=== PATIENT | female | born 1965 | race Caucasian/White ===

== ENCOUNTER 2018-01-07 14:42 | Emergency (ER) | payer OTHER ==
[~2018-01-07] VITALS: Ht 170.2 cm; Wt 73.2 kg
[~2018-01-07 14:42] MED LIST: ALBUAER2 INH; BECL0.3A INH; DOUNEB INH; IPRA1AER2 INH
[2018-01-07 14:43] VITALS: Ht 170.2 cm; Wt 73.2 kg
[2018-01-07 15:35] LABS: BASO % 0.1 %; BASO ABS # 0.01 K/uL (0-0.2); EOS % 0.6 %; EOS ABS # 0.08 K/uL (0-0.5); HEMOGLOBIN 12.7 g/dL (12.0-16.0); IG# 0.04 K/uL (0.00-0.02); LYMPH % 17.4 %; LYMPH ABS # 2.23 K/uL (1.2-3.4); MEAN CELL VOLUME 93.9 fL (80-100); MEAN CORPUSCULAR HEMOGLOBIN 32.2 pg (25-34); MEAN CORPUSCULAR HGB CONC 34.3 g/dl (32-36); MEAN PLATELET VOLUME 9.5 fL (7.4-10.4); MONO % 9.2 %; MONO ABS # 1.18 K/uL (0.11-0.59); NEUT % 72.4 %; NEUT ABS # 9.31 K/uL (1.4-6.5); PLATELET COUNT 238 K/uL (130-400); RED CELL DISTRIBUTION WIDTH CV 13.4 % (11.5-14.5); RED CELL DISTRIBUTION WIDTH SD 46.5 fL (36.4-46.3); WHITE BLOOD COUNT 12.85 K/uL (4.8-10.8)
[2018-01-07 15:58] LABS: ALBUMIN 3.1 gm/dl (3.4-5.0); CALCIUM 8.9 mg/dl (8.5-10.1); CREATININE 0.76 mg/dl (0.60-1.20); POTASSIUM 3.3 mmol/L (3.5-5.1)
[2018-01-07 16:00] LABS: TOTAL PROTEIN 7.6 gm/dl (6.4-8.2)
[2018-01-07 16:21] LABS: INFLUENZA B ANTIGEN Neg for Influ B (NEG)
[2018-01-07 16:56] VITALS: TEMP 38.2
--- NOTE | 2018-01-07 18:20 | DIAGNOSTIC IMAGING REPORT ---
CHEST 2 VIEWS ROUTINE HISTORY: 52 years-old Female cough, fever acute cough and fever COMPARISON: Chest radiograph 04/13/2014 and CTA chest 04/13/2014 TECHNIQUE: PA and lateral views of the chest FINDINGS: Cardiomediastinal and hilar silhouettes are within normal limits. Lungs are mildly hyperinflated. No pneumothorax, pleural effusion, lobar airspace consolidation or overt pulmonary edema. Calcified granulomas of the right upper lobe redemonstrated. Hazy opacity of the lateral right lung base on the frontal view is not appreciated on the lateral projection. Bones of the chest appear grossly intact. IMPRESSION: 1. Ill-defined opacity of the lateral right lung base on the frontal view without a correlate on the lateral projection likely reflects atelectasis or composite pulmonary vasculature with a mild pneumonitis thought to be less likely. 2. Prior granulomatous disease. The above report was generated using voice recognition software. It may contain grammatical, syntax or spelling errors. Electronically signed by: Gonzales Ireland M.D. 01/07/2018 6:19 PM Dictated Date/Time: 01/07/2018 6:16 PM
[2018-01-07] MEDS ORDERED: AZITHROMYCIN 250 MG TAB PO STA (18:36)
[2018-01-07] MEDS ORDERED: CEFD300C2 PO (18:45)
[2018-01-07] MEDS ORDERED: AZIT250T PO (18:45)
[2018-01-07 19:05] VITALS: BP 132/76; PULSE 74; O2SAT 98
--- NOTE | 2018-01-08 14:00 | EMERGENCY ROOM VISIT NOTE ---
ED Visit Note First contact with patient: 14:48 Chief Complaint: I think I have catch scratch disease. History of Present Illness: Ms. Proctor is a 52-year-old white female who ambulates into the ED accompanied by her . Patient reports approximately 3 weeks ago she self diagnosed herself with influenza with symptoms of fevers, body aches, fatigue, cough and congestion. She reported she had resolution of all her symptoms except for cough 8 days ago. She reports 2 days after her resolution of those symptoms she was scratched in the face and lower lip by her family cat. The day after she was scratched she reports she had fevers, body aches, uncontrollable shakes, body aches and fatigue. He also reports a day after the scratch she developed an ulceration lesion on the lower lip which is subsequently resolved. Currently she reports she is still having body aches. She rates this discomfort 2/10. The pain is nonradiating. She has not identified any aggravating or alleviating factors related to this pain. She does report when she woke up this morning she was afebrile but a few hours after being awake she had a temperature of 101F orally and she took Tylenol for her fever but not really for her body aches. Additionally she also reports she continues to have a mildly productive cough of clear sputum. She denies sweats, other skin eruptions, other skin color changes, headache, dizziness, lightheadedness, any abnormal neurological symptoms, neck pain/ stiffness, hemoptysis; she has a history of COPD and she does report that she has mild wheezing every day, difficulty breathing, sensations of shortness of breath, chest pain, palpitations, orthopnea, dependent edema, previous clots, claudication, cramping, decreased appetite, abdominal pain, nausea, vomiting, diarrhea, back/flank pain, joint pains. Review of Systems: As noted above in history of present illness. All body systems were reviewed and found to be negative as noted above. Past Medical History: COPD, bronchitis, asthma, pneumonia, status post tubal ligation. Current Medications: Combivent. Allergies to Medications: Love, Prozac; I did note that the patient had a history of penicillin allergies and when questioned during discharge patient reports she really did not have an allergic reaction to penicillin in the past she only had body aches and pain. Social History: Patient is currently employed; she feels safe in her home environment; she admits to tobacco and alcohol use. Physical Examination: Vital Signs: Date Time Temp Pulse Resp B/P (MAP) Pulse Ox O2 Delivery O2 Flow Rate FiO2 01/07/18 19:05 74 20 132/76 98 01/07/18 16:56 38.2 16 158/91 96 Room Air 01/07/18 14:43 37.0 107 18 175/94 98 Room Air GENERAL: 52-year-old female in mild distress due to pain, nontoxic-appearing, afebrile and hemodynamically stable. NEUROLOGICAL: Awake, alert and oriented to person, place and time. Answering questions appropriately and following commands. Normal gait. Good hand eye coordination. No focal motor sensory deficits. SKIN: Warm, dry and pink. Face: Shows a superficial laceration starting just inferior to the zygomatic arch and extending down to the lip. There is no local erythema or edema. There is no warmth to this area. The skin or surrounding area does not appear cellulitic. Mouth: I did look in the mouth on the lower lip where the patient received an injury and there is no local erythema, edema or lesions. HEENT: Atraumatic and normocephalic. PERRLA. Sclera white and conjunctiva pink. Speech normal. No local lymphadenopathy. Trachea midline. No jugular venous distention. THORAX: Lungs sounds are clear to auscultation with scattered rhonchi in the bases that clear with cough. Symmetrical chest wall. No wheezing, rales. No crepitus, tenderness, subcutaneous air or deformities noted. ABDOMEN: Flat, soft and nontender. Positive bowel sounds in all quadrants. No guarding, rigidity or organomegaly. EXTREMITIES: Moves all extremities well on command and with purpose. All distal neurovascular statuses are intact and equal bilaterally. No calf tenderness or cords. ED Course: Patient is assessed as noted above. Patient's medication list was reviewed. Should be noted patient was extremely concerned about laboratory testing and other testing due to poor insurance and her possible inability to pay. Initially she refused chest x-ray and urinalysis. I did approach the patient and counseled her on additional testing due to her white blood cell count elevation and her development of a fever while in the ED and then she did she allow these testing. Laboratory Testing: Test 01/07/18 15:24 01/07/18 15:26 01/07/18 17:37 Range/Units Influenza Type A Antigen Neg for Influ A NEG Influenza Type B Antigen Neg for Influ B NEG White Blood Count 12.85 4.8-10.8 K/uL Red Blood Count 3.94 4.2-5.4 M/uL Hemoglobin 12.7 12.0-16.0 g/dL Hematocrit 37.0 37-47 % Mean Corpuscular Volume 93.9 80-100 fL Mean Corpuscular Hemoglobin 32.2 25-34 pg Mean Corpuscular Hemoglobin Concent 34.3 32-36 g/dl Platelet Count 238 130-400 K/uL Mean Platelet Volume 9.5 7.4-10.4 fL Neutrophils (%) (Auto) 72.4 % Lymphocytes (%) (Auto) 17.4 % Monocytes (%) (Auto) 9.2 % Eosinophils (%) (Auto) 0.6 % Basophils (%) (Auto) 0.1 % Neutrophils # (Auto) 9.31 1.4-6.5 K/uL Lymphocytes # (Auto) 2.23 1.2-3.4 K/uL Monocytes # (Auto) 1.18 0.11-0.59 K/uL Eosinophils # (Auto) 0.08 0-0.5 K/uL Basophils # (Auto) 0.01 0-0.2 K/uL RDW Standard Deviation 46.5 36.4-46.3 fL RDW Coefficient of Variation 13.4 11.5-14.5 % Immature Granulocyte % (Auto) 0.3 % Immature Granulocyte # (Auto) 0.04 0.00-0.02 K/uL Sodium Level 131 136-145 mmol/L Potassium Level 3.3 3.5-5.1 mmol/L Chloride Level 96 98-107 mmol/L Carbon Dioxide Level 27 21-32 mmol/L Anion Gap 8.0 3-11 mmol/L Blood Urea Nitrogen 10 7-18 mg/dl Creatinine 0.76 0.60-1.20 mg/dl Est Creatinine Clear Calc Drug Dose 84.2 ml/min Estimated GFR () 104.5 Estimated GFR (Non- 90.2 BUN/Creatinine Ratio 12.5 10-20 Random Glucose 122 70-99 mg/dl Calcium Level 8.9 8.5-10.1 mg/dl Total Bilirubin 1.1 0.2-1 mg/dl Direct Bilirubin 0.6 0-0.2 mg/dl Aspartate Amino Transf (AST/SGOT) 62 15-37 U/L Alanine Aminotransferase (ALT/SGPT) 50 12-78 U/L Alkaline Phosphatase 132 45-117 U/L Total Protein 7.6 6.4-8.2 gm/dl Albumin 3.1 3.4-5.0 gm/dl Urine Color YELLOW Urine Appearance CLEAR CLEAR Urine pH 5.5 4.5-7.5 Urine Specific [place] 1.006 1.000-1.030 Urine Protein NEG NEG Urine Glucose (UA) NEG NEG Urine Ketones NEG NEG Urine Occult Blood TRACE NEG Urine Nitrite NEG NEG Urine Bilirubin NEG NEG Urine Urobilinogen NEG NEG Urine Leukocyte Esterase LARGE NEG Urine WBC (Auto) >30 0-5 /hpf Urine RBC (Auto) 0-4 0-4 /hpf Urine Hyaline Casts (Auto) 0 0-5 /lpf Urine Epithelial Cells (Auto) 10-20 0-5 /lpf Urine Bacteria (Auto) NEG NEG Chest X-Ray: Was reviewed by myself and radiologist and my attending Dr. Coello; shows ill-defined opacity in the left lung base of questionable etiology but could possibly include atelectasis, pulmonary vasculature with pneumonitis. Patient was reassessed multiple times during her stay in the emergency department. Patient's case was reviewed with Dr. Coello; he independently assessed the patient we agreed on diagnostic approach, treatment, disposition and plan. Patient was given 500 mg of Zithromax by mouth for antibiotic coverage. Patient was educated about today's findings and instructed on her treatment plan ; she verbalized understanding and agreement with this plan. Clinical Impression: Fevers. Possible pneumonitis. Possible cat scratch fever. Decision-Making: Initially my differential diagnosis I considered pneumonia, bronchitis, cat scratch fever, influenza and other causes. Disposition: Patient discharged home in stable condition accompanied by her ; prior to departure she subjectively reported she was feeling much better and reported resolution of her body aches. Plan: Patient was prescribed Zithromax 500 mg once a day for 6 additional days. Patient was prescribed Omnicef 300 mg twice a day for 7 days. Patient was encouraged alternate ibuprofen and acetaminophen as needed for fevers every 3 hours. Patient was encouraged to use one albuterol treatment every 6 hours for the next 5 days. Patient was educated on signs of skin infections. Patient was encouraged to have close follow-up with her family physician for recheck. Patient is encouraged to return the ED for worsening signs of infection, increasing shortness of breath/wheezing, worsening fevers, coughing up blood or any new/concerning symptoms.
== END 2018-01-07 19:06 | disposition home or self-care (01) ==
LOC: C.EDB 14:44 → C.EDC 19:06
DX: R50.9 Fever, unspecified (principal); S01.81XA Laceration without foreign body of other part of head, initial encounter; W55.03XA Scratched by cat, initial encounter; J44.9 Chronic obstructive pulmonary disease, unspecified; Z87.01 Personal history of pneumonia (recurrent); Z98.51 Tubal ligation status; Z79.899 Other long term (current) drug therapy; Z88.8 Allergy status to other drugs, medicaments and biological substances; Z72.0 Tobacco use

== ENCOUNTER 2023-11-18 22:19 | Inpatient (IN) ==
--- OUTSIDE RECORDS SUMMARY | 2023-11-18 22:25 | External Medical Summary | Summary of Care ---
Author Name Unknown Organization [facility] Address [address] [place] [address] Phone [phone] Care Team Providers Care [employer] Name Role Phone Anupama Huddleston PA-C Primary Care Provider [phone] Reason for Visit * Reason Comments eRx-Medication Refill Encounter Details Date Type Department Care Team (Late st Contact Info) Description 11/16/2023 Refill [facility] [address] [place] [id number] Anupama Huddleston PA-C [address] [place] [address] Insomnia, unspecified type Allergies Active Allergy Reactions Criticality Noted Date Comments Fexofenadine Hydrochloride High 6 Throat swelling Amitriptyline 06/13/2022 When taken with alcohol gets dissociation and blacks out Fluoxetine Hcl 01/21/2008 documented as of this encounter (statuses as of 11/16/2023) Medications Medication Sig Dispensed Refills Start Date End Date Status Probiotic Acidophilus BioBeads Oral Capsule Take 1 Cap by mouth three times a day with meals. 0 Active Vitamin B Complex-C Oral Capsule Take 1 Capsule by mouth in the morning. 0 Active Aspirin 81 MG Oral Capsule Take by mouth. 0 Active Omeprazole 40 MG Oral Capsule Delayed Release (PriLOSEC) Take 1 Capsule by mouth in the morning. 0 Active Azithromycin 250 MG Oral Tablet (Zithromax Z-Douglas)Indications:CO PD, moderate (HCC),COPD exacerbation (HCC) Take two tablets by mouth on first day, then 1 tablet daily until gone 6 Tablet 0 09/04/2023 Active Albuterol Sulfate HFA 108 (90 Base) MCG/ACT Inhalation Aerosol Solution Inhale 2 Puffs by mouth every 4 hours as needed for Shortness of Breath or Wheezing. 18 g 5 09/04/2023 Active Lisinopril 30 MG Oral TabletIndications:HT N, goal below 140/90 Take 1 Tablet by mouth in the morning. 90 Tablet 1 09/04/2023 Active Montelukast Sodium 10 MG Oral Tablet (Singulair)Indicatio ns:COPD, moderate (HCC),COPD exacerbation (HCC) Take 1 Tablet by mouth in the morning. 90 Tablet 3 09/19/2023 Active Doxepin HCl 25 MG Oral Capsule (SINEquan)Indication s:Insomnia, unspecified type Take 2 Capsules by mouth at bedtime. 180 Capsule 0 11/02/2023 Active documented as of this encounter (statuses as of 11/16/2023) Active Problems Problem Noted Date Diagnosed Date COPD, group C, by GOLD 2017 classification 10/02 Overview: Per COPD GOLD Classification ILD (interstitial lung disease) 03/08/2023 Chronic obstructive pulmonar y disease with (acute) exacerbation 03/08/2023 SOB (shortness of breath) 02/18/2022 Abnormal results of liver function studies 10/30 Alcohol ingestion, 1-4 drinks per day 08/31/2015 INFORMATION 08/23/2015 Overview: 10 year calculated cardiovascular risk of 4% TIA (transient ischemic attack) 04/17/2014 Overview: Historical- Alcoholic hepatitis 04/17/2014 Abnormal mammogram 08/16/2013 Overview: Last Mammogram 2014 - Negative, no evidence of malignancy Tobacco use disorder 06/25/2013 ADVANCE DIRECTIVE INFORMATION 03/10/2006 Overview: No advance directive- info given FAMILY HX-BREAST MALIG 08/04/2004 Depression 08/08/2002 ABN PAP SMEAR-CERVIX 06/20/2002 Hepatomegaly 06/20/2002 Chronic Alcohol Dependence Irritable bowel syndrome (IBS) Dyslipidemia, goal LDL below 100 documented as of this encounter (statuses as of 11/16/2023) Resolved Problems Problem Noted Date Diagnosed Date Resolved Date COPD, group B, by GOLD 2017 classification 10/03/2022 10/05/2023 Overview: Per COPD GOLD Classification Lumbar paraspinal muscle spasm 10/30/2015 08/18/2020 Bilateral low back pain without sciatica 10/30/2015 08/18/2020 Breast cancer screening 08/31/201507/24 Screen for colon cancer 08/31/201507/24 Alcohol dependence, continuous 04/17/2014 08/31/2015 Tobacco use disorder 04/17/2014 020 Encounter for routine gyneco logical examination 06/25/2013 08/18/2020 Overview: ICD-10 update of inactive term Acute sinusitis 06/25/2013 08/18/2020 Chronic rhinitis 06/25/2013 08/18/2020 Screening for cardiovascular condition 06/25/2013 08/18/2020 Screening for diabetes mellitus 06/25/2013 08/18/2020 COPD exacerbation 01/21/2008 06/25/2013 Sprain, lumbosacral 04/19/2007 08/18/20 20 Spasm of muscle 04/19/2007 08/18/2020 Dyslipidemia, goal to be determined 08/04/2004 11/27/2008 Overview: Resolved per Duplicate Protocol #2. Screening for malignant neoplasm of breast 08/04/2004 12/31/2008 Overview: Resolved per Screening Diagnosis Protocol #6 Dyslipidemia, goal to be determined 07/23/2004 09/03/2012 ACUTE URI NOS 07/23/2004 12/11/2008 Overview: Resolved per Benign Acute Dxs Protocol #3 TOBACCO MUCOSITIS 07/23/2004 09/03/2012 Cough 07/23/2004 09/03/2012 ACUTE SINUSITIS NOS 12/04/2001 12/11/19 09 Overview: Resolved per Benign Acute Dxs Protocol #3 INFEC OTITIS EXTERNA, RIGHT 12/04/2001 08/18/2020 DYSFUNCT EUSTACHIAN TUBE 12/04/200109/2012 Tobacco use disorder 09/21/2001 012 ACUTE BRONCHITIS 07/13/2000 09/03/2012 HISTORY OF TOBACCO USE 09/03 ALCOHOL ABUSE-UNSPEC 012 COPD, moderate 10/06/2022 Overview: Per COPD GOLD Classification documented as of this encounter (statuses as of 11/16/2023) Social History Tobacco Use Types Packs/Day Years Used Date Smoking Tobacco: Every Day Cigarettes 1 46 Smokeless Tobacco: Never Alcohol Use Standard Drinks/Week Comments Not Currently 40 (1 standard drink = 0.6 oz pure alcohol) alcoholic-tries not to drink during week, gets drunk on weekend 36 beers per weekend, but does not drink every day PHQ-2 Answer Date Recorded PHQ Adult Total Score 2 02/11/2021 Hunger Vital Sign Answer Date Recorded Within the past 12 months, y ou worried that your food would run out before you got the money to buy more. Never true 02/12/20 21 Within the past 12 months, t he food you bought just didn't last and you didn't have money to get more. Never true 02/11/2021 Sex and Gender Information Value Date Recorded Sex Assigned at Not on file Gender Identity Not on file Sexual Orientation Not on file Job Start Date Occupation Industry Not on file Not on file Not on file documented as of this encounter Miscellaneous Notes * Telephone Encounter - Kanwal Roman RPh - 11/16/2023 1:31 PM EST Refused Prescriptions: Disp Refills Doxepin HCl 25 MG Oral Capsule (SINEquan) 90 Cap*3 Sig: TAKE 1 CAPSULE BY MOUTH EVERYDAY AT BEDTIMERefused By: KANWAL ROMAN for Refusal: Duplicate Req uest documented in this encounter Plan of Treatment Upcoming Encounters Date Type Department Care Team (Late st Contact Info) Description 12/19/2023 2:30 PM EST Laboratory Laboratory, [place] [address] [facility] [place] [phone] [facility] [address] [facility] [place] [id number] 12/26/2023 3:00 PM EST Office Visit Hematology/Oncology [facility] [address] [facility] [place] [address] Asiya Tom MD [address] [facility] [place] [address] 03/04/2024 2:00 PM EDT Office Visit Family [facility], [place] [address] [facility] [place] [address] Anupama Huddleston PA-C [address] [facility] [place] [id number] Scheduled Procedures Name Priority Associated Diagnoses Date/Ti me COLONOSCOPY FLEXIBLE PROXIMA L DIAGNOSTIC Recall History of colonic polyps Health Maintenance Due Date Last Done Comments Hepatitis B (1 of 3 - 3-dose series) 1965 COVID-19 Vaccine (#1) 1965 Pneumococcal Vaccine: Pediatrics (0 to 5 Years) and At-Risk Patients (6 to 64 Years) (1 - PCV) 1971 HIV Screening 01/11/1980 HPV/Co-Test 1995 DTaP,Tdap,and Td Vaccines (1 - Tdap) 08/15/1996 08/14/1996 Zoster Vaccines (1 of 2) 2015 DISCUSS TOBACCO CESSATION (REFER TO SMARTSET #3041) 08/31/2016 08/31/2015 (Discussed) Depression Screening 02/11/2022 02/11/2021 Influenza Vaccine (FLU shot) (#1) 2023 Cervical Cancer Screening 03/05/2024 Pap Smear 03/05/2024 03/05/2021, 12/2012, 06/25/2013, Additional history exists O2 ASSESSMENT COMPLETED IN PAST YEAR FOR COPD 06/08/2024 06/08/2023 Mammogram 08/16/2024 08/16/2023, 1205/2015, 09/07/2015, Additional history exists Diabetes Screening 06/27/2026 06/27/2023, 0 06/21/2023, 12/16/2022, Additional history exists COLONOSCOPY-EVERY 5 YRS AGES 18-100 06/08/2028 06/08/2023, 06/08/2023, 05/16/2018, Additional history exists Hepatitis C Screening Completed 05/07/2018 LUNG CANCER SCREENING - USE SMARTSET 00667 Completed 03/23/2023, 03/07/2022 Alpha-1 Antitrypsin Completed 04/06/2023 COLONOSCOPY-EVERY 3 YRS AGES 18-100 Discontinued 06/08/2023, 06/08/2023, 05/16/2018, Additional history exists GARDASIL-HPV IMMUNIZATION SERIES Aged Out No longer eligible based on patient's age to complete this topic MENINGOCOCCAL (MENACTRA/MENVEO) Aged Out No longer eligible based on patient's age to complete this topic documented as of this encounter Medical Devices Not on filedocumented as of this encounter Visit Diagnoses Diagnosis Insomnia, unspecified type documented in this encounter Care Teams [employer] Relationship Specialty Start Date End Date Anupama Huddleston PA-C [address] [facility] [place] [address] PCP - General Physician Geothermal Electrical Engineer 05/16/18 documented as of this encounter
--- OUTSIDE RECORDS SUMMARY | 2023-11-18 22:25 | External Medical Summary | Summary of Care ---
Author Name Unknown Organization [facility] Address [address] [place] [address] Phone [phone] Care Team Providers Care [employer] Name Role Phone Anupama Huddleston PA-C Primary Care Provider [phone] Encounter Details Date Type Department Care Team (Late st Contact Info) Description 06/05/2023 Telephone OR [facility], Operating Room [facility] [address] [place] [phone] Glenn Key MD [address] [place] [address] Allergies Active Allergy Reactions Criticality Noted Date Comments Fexofenadine Hydrochloride High 6 Throat swelling Amitriptyline 06/13/2022 When taken with alcohol gets dissociation and blacks out Fluoxetine Hcl 01/21/2008 documented as of this encounter (statuses as of 09/04/2023) Medications Medication Sig Dispensed Refills Start Date End Date Status Probiotic Acidophilus BioBeads Oral Capsule Take 1 Cap by mouth three times a day with meals. 0 Active Vitamin B Complex-C Oral Capsule Take 1 Capsule by mouth in the morning. 0 Active Aspirin 81 MG Oral Capsule Take by mouth. 0 Active Doxepin HCl 25 MG Oral Capsule (SINEquan)Indications :Insomnia, unspecified type Take 1 Capsule by mouth at bedtime. 90 Capsule 3 11/15/2022 Active documented as of this encounter (statuses as of 09/04/2023) Active Problems Problem Noted Date Diagnosed Date ILD (interstitial lung disease) 03/08/2023 Chronic obstructive pulmonar y disease with (acute) exacerbation 03/08/2023 COPD, group B, by GOLD 2017 classification 10/03 Overview: Per COPD GOLD Classification SOB (shortness of breath) 02/18/2022 Abnormal results [...] as of this encounter (statuses as of 09/04/2023) Resolved Problems Problem Noted Date Diagnosed Date Resolved Date Lumbar paraspinal muscle spasm 10/30/2015 08/18/2020 Bilateral [...] as of this encounter (statuses as of 09/04/2023) Social History Tobacco Use Types Packs/Day Years [...] encounter Miscellaneous Notes * Telephone Encounter - Kami Cedillo RN - 06/05/2023 10:15 AM EDT Attempted to call for pre anesthesia evaluation. No answer. Voice mail left requesting return call documented in this encounter Plan of Treatment Upcoming Encounters Date Type Department Care Team (Late st Contact Info) Description 09/19/2023 3:00 PM EST Imaging Radiology, [place] [address] [place] [address] 09/22/2023 1:15 PM EST Imaging Radiology [facility] [address] [facility] [address] [facility] [place] [address] 12/19/2023 2:30 PM EST Laboratory Laboratory, [place] [address] [place] [facility] [place] [phone] [facility] [address] [place] [address] 12/26/2023 3:00 PM EST Office Visit Hematology/Oncology [facility] [address] [facility] [place] [address] Asiya Tom MD [address] [facility] [place] [address] 03/04/2024 2:00 PM EDT Office Visit Family [facility] [place] [address] [facility] [phone] Anupama Huddleston PA-C [address] [facility] [address] Scheduled Procedures Name Priority Associated Diagnoses Date/Ti [...] 2015 DISCUSS TOBACCO CESSATION (REFER TO SMARTSET #3291) 08/31/2016 08/31/2015 (Discussed) Depression Screening 02/11/2022 02/11/2021 Influenza Vaccine (FLU shot) (#1) 2023 Cervical Cancer Screening 03/05/2024 Pap Smear 03/05/2024 03/05/2021, 12/2012, 06/25/2013, Additional history exists O2 ASSESSMENT COMPLETED IN PAST YEAR FOR COPD 06/08/2024 06/08/2023 Mammogram 08/16/2024 08/16/2023, 12/0 05/2015, 09/07/2015, Additional history exists Diabetes Screening 06/27/2026 06/27/2023, 0 06/21/2023, 12/16/2022, Additional history exists COLONOSCOPY-EVERY 5 YRS AGES 18-100 06/08/2028 06/08/2023, 06/08/2023, 05/16/2018, Additional history exists Hepatitis C Screening Completed 05/07/2018 LUNG CANCER SCREENING - USE SMARTSET 33319 Completed 03/23/2023, 03/07/2022 Alpha-1 Antitrypsin Completed 04/06/2023 [...] Not on filedocumented as of this encounter Care Teams [employer] Relationship Specialty Start Date End Date Anupama Huddleston PA-C [address] [place] [address] PCP - General Physician Sas Statistical Programmer 05/16/18 documented as of this encounter
--- OUTSIDE RECORDS SUMMARY | 2023-11-18 22:25 | External Medical Summary | Summary of Care ---
Author Name Unknown Organization [facility] Address [address] [place] [address] Phone [phone] Care Team Providers Care Video Control Engineer Name Role Phone Anupama Huddleston PA-C Primary Care Provider [phone] [phone] Reason for Visit * Reason Onset Date Comments Appointment 09/04/2023 US EXTREMITY, NO N-VASCULAR LIMITED Encounter Details Date Type Department Care Team (Late st Contact Info) Description 09/04/2023 Telephone [facility] [address] [place] [address] Anupama Huddleston PA-C [address] [place] [address] Appointment (US EXTREMITY, NON-VASCULAR LI... Allergies Active Allergy Reactions Criticality Noted Date [...] Oral Capsule (SINEquan)Indication s:Insomnia, unspecified type Take 1 Capsule by mouth at bedtime. 90 Capsule 3 11/15/2022 Active Omeprazole 40 MG Oral Capsule Delayed Release (PriLOSEC) Take 1 Capsule by mouth in the morning. 0 Active Azithromycin 250 MG Oral Tablet (Zithromax Z-Douglas)Indications:CO PD, moderate (HCC),COPD exacerbation (HCC) Take two tablets by mouth on first day, then 1 tablet daily until gone 6 Tablet 0 09/04/2023 Active Montelukast Sodium 10 MG Oral Tablet (Singulair)Indicatio ns:COPD, moderate (HCC),COPD exacerbation (HCC) Take 1 Tablet by mouth in the morning. 30 Tablet 5 09/04/2023 Active Albuterol Sulfate HFA 108 (90 Base) MCG/ACT Inhalation Aerosol Solution Inhale 2 Puffs by mouth every 4 hours as needed for Shortness of Breath or Wheezing. 18 g 5 09/04/2023 Active Lisinopril 30 MG Oral TabletIndications:HT N, goal below 140/90 Take 1 Tablet by mouth in the morning. 90 Tablet 1 09/04/2023 Active documented as of this encounter (statuses [...] encounter Miscellaneous Notes * Telephone Encounter - Doris Lerner OSA - 09/04/2023 3:03 PM EST Please call patient to schedule: US EXTREMITY, NON-VASCULAR LIMITED It will not allow us as we are not a POC we are a clinic. 09/04/2023 documented in this encounter Plan of Treatment Upcoming Encounters Date Type Department Care Team (Late st Contact Info) Description 09/22/2023 1:15 PM EST Imaging Radiology [facility] 1st [facility], [address] [place] [address] 12/19/2023 2:30 PM EST [address] Laboratory, [address] [phone] [facility] [address] [place], [place] [address] 12/26/2023 3:00 PM EST Office Visit [facility]ematology[facility]On[facility] [address] [facility] [place] [address] Asiya Tom MD [address] [facility] [place] [address] 03/04/2024 2:00 PM EDT Office Visit Family [facility], [place] [address] [place] [facility] [place] [address] Anupama Huddleston PA-C [address] [place], [place] [id number] Scheduled Procedures Name Priority Associated Diagnoses Date/Ti [...] FOR COPD 06/08/2024 06/08/2023 Mammogram 08/16/2024 08/16/2023, 05/2015, 09/07/2015, Additional history exists Diabetes Screening 06/27/2026 06/27/2023, 0 06/21/2023, 12/16/2022, Additional history exists COLONOSCOPY-EVERY 5 YRS AGES 18-100 06/08/2028 06/08/2023, 06/08/2023, 05/16/2018, Additional history exists Hepatitis C Screening Completed 05/07/2018 LUNG CANCER SCREENING - USE SMARTSET 42229 Completed 03/23/2023, 03/07/2022 Alpha-1 Antitrypsin Completed 04/06/2023 [...] filedocumented as of this encounter Care Teams Video Control Engineer Relationship Specialty Start Date End Date Anupama Huddleston PA-C [address] [facility] [place] [address] PCP - General Physician Lining Feller 05/16/18 documented as of this encounter
--- OUTSIDE RECORDS SUMMARY | 2023-11-18 22:25 | External Medical Summary | Summary of Care ---
Author Name Unknown Organization [facility] Address [address] [place] [address] Phone [phone] Care Team Providers Care Tool Radial Drill Press Set Up Operator Name Role Phone Anupama Huddleston PA-C Primary Care Provider [phone] [phone] Reason for Visit * Reason Onset Date Comments Order Request 08/14/[address] aced please Encounter Details Date Type Department Care Team (Late st Contact Info) Description 08/14/2023 Telephone [facility] [address] [place] [address] Anupama Huddleston PA-C [address] [place] [address] Order Request (Need an order placed please) Allergies Active Allergy Reactions Criticality Noted Date Comments Fexofenadine Hydrochloride High 6 Throat swelling Amitriptyline 06/13/2022 When taken with alcohol gets dissociation and blacks out Fluoxetine Hcl 01/21/2008 documented as of this encounter (statuses as of 08/16/2023) Medications Medication Sig Dispensed Refills Start Date End Date Status Probiotic Acidophilus BioBeads Oral Capsule Take 1 Cap by mouth three times a day with meals. 0 Active Vitamin B Complex-C Oral Capsule Take 1 Capsule by mouth in the morning. 0 Active Albuterol Sulfate HFA 108 (90 Base) MCG/ACT Inhalation Aerosol Solution Inhale by mouth 2 Puffs every 4 hours as needed for Shortness of Breath or Wheezing. 18 g 5 04/18/2022 Active Aspirin 81 MG Oral Capsule Take by mouth. 0 Active Doxepin HCl 25 MG Oral Capsule (SINEquan)Indicatio ns:Insomnia, unspecified type Take 1 Capsule by mouth at bedtime. 90 Capsule 3 11/15/2022 Active Lisinopril 30 MG Oral TabletIndications:H TN, goal below 140/90 Take 1 Tablet by mouth in the morning. 90 Tablet 1 03/08/2023 Active Venlafaxine HCl ER 37.5 MG Oral Capsule Extended Release 24 Hour (Effexor XR)Indications:Liyah r depressive disorder, recurrent episode, moderate (HCC) Take 1 Capsule by mouth in the morning. Do not cut, crush or chew. 90 Capsule 3 04/03/2023 Active Additional Information Patient not taking.Reported on 06/07/2023 Famotidine 40 MG Oral Tablet (Pepcid)Indications :Gastroesophageal reflux disease without esophagitis Take 1 Tablet by mouth in the morning. 90 Tablet 3 04/03/2023 Active Additional Information Patient not taking.Reported on 06/07/2023 Omeprazole 40 MG Oral Capsule Delayed Release (PriLOSEC) Take 1 Capsule by mouth in the morning. 0 Active documented as of this encounter (statuses as of 08/16/2023) Active Problems Problem Noted Date Diagnosed Date [...] as of this encounter (statuses as of 08/16/2023) Resolved Problems Problem Noted Date Diagnosed Date [...] as of this encounter (statuses as of 08/16/2023) Immunizations Name Administration Dates Next Due Diptheria/Tetanus (Adult) 08/14/1996 documented as of this encounter Social History Tobacco Use Types Packs/Day Years [...] as of this encounter Miscellaneous Notes * Addendum Note - Anupama Huddleston PA-C - 08/16/2023 12:10 PM EDTAddended by: ANUPAMA HUDDLESTON on: 08/16/2023 12:10 PM Modules accepted: Orders * Telephone Encounter - ISAURA Lovett - 08/14/2023 11:48 AM EDT Could you please place an order for a MAMMOGRAM SCREENING ELSY BILATERAL for pt, pt is sched on 08/16/23 at [facility] Radiology Scheduling documented in this encounter Plan of Treatment Upcoming Encounters Date Type Department Care Team (Late st Contact Info) Description 08/16/2023 2:30 PM EDT Imaging Radiology [address] [place] [address] 09/08/2023 2:00 PM EST Office Visit Family [facility], [place] [address] [place] [facility] [place] [phone] Anupama Huddleston PA-C [address] [place] [address] 09/22/2023 1:15 PM EST Imaging Radiology [address] [place] [address] 12/19/2023 2:30 PM EST Laboratory Laboratory, [place] [address] [place] [phone] [facility] [address] [place] [address] 12/26/2023 3:00 PM EST Office Visit [facility]ology[facility] [address] [facility] [place] [address] Asiya Tom MD [address] [facility] [place] [address] Scheduled Orders Name Type Priority Associated Diagnoses Orde r Schedule MAMMOGRAM SCREENING ELSY BILATERAL Medical Imaging Routine Encounter for screening mammogram for breast cancer Expected: 08/16/2023, Expires: 09/16/2024 Scheduled Procedures Name Priority Associated Diagnoses Date/Ti [...] (REFER TO SMARTSET #3291) 08/31/2016 08/31/2015 (Discussed) Mammogram 09/29/2016 09/29/2015, 08/23, 08/20/2013, Additional history exists Depression Screening 02/11/2022 02/11/2021 Influenza Vaccine (FLU shot) (#1) 2023 Cervical Cancer Screening 03/05/2024 Pap Smear 03/05/2024 03/05/2021, 12/2012, 06/25/2013, Additional history exists O2 ASSESSMENT COMPLETED IN PAST YEAR FOR COPD 06/08/2024 06/08/2023 Diabetes Screening 06/27/2026 06/27/2023, 0 06/21/2023, 12/16/2022, Additional history exists COLONOSCOPY-EVERY 5 YRS AGES 18-100 06/08/2028 06/08/2023, 06/08/2023, 05/16/2018, Additional history exists Hepatitis C Screening Completed 05/07/2018 LUNG CANCER SCREENING - USE SMARTSET 91153 Completed 03/23/2023, 03/07/2022 Alpha-1 Antitrypsin Completed 04/06/2023 [...] as of this encounter Visit Diagnoses Diagnosis Encounter for screening mammogram for breast cancer- Primary documented in this encounter Care Teams Tool Radial Drill Press Set Up Operator Relationship Specialty Start Date End Date Anupama Huddleston PA-C [address] [facility] [address] PCP - General Physician Outbound Supervisor 05/16/18 documented as of this encounter
--- OUTSIDE RECORDS SUMMARY | 2023-11-18 22:25 | External Medical Summary | Summary of Care ---
Author Name Unknown Organization [facility] Address [address] [place] [address] Phone [phone] Care Team Providers Care Shade Classifier Name Role Phone Anupama Huddleston PA-C Primary Care Provider [phone] Encounter Details Date Type Department Care Team (Late st Contact Info) Description 09/19/2023 Refill [facility] [address] [place] [address] Anupama Huddleston PA-C [address] [place] [address] COPD, moderate (HCC); COPD exacerbation (HCC) Allergies Active Allergy Reactions Criticality Noted Date Comments Fexofenadine Hydrochloride High 6 Throat swelling Amitriptyline 06/13/2022 When taken with alcohol gets dissociation and blacks out Fluoxetine Hcl 01/21/2008 documented as of this encounter (statuses as of 09/19/2023) Medications Medication Sig Dispensed Refills Start Date End Date Status Probiotic Acidophilus BioBeads Oral Capsule Take 1 Cap by mouth three times a day with meals. 0 Active Vitamin B Complex-C Oral Capsule Take 1 Capsule by mouth in the morning. 0 Active Aspirin 81 MG Oral Capsule Take by mouth. 0 Active Doxepin HCl 25 MG Oral Capsule (SINEquan)Indicati ons:Insomnia, unspecified type Take 1 Capsule by mouth at bedtime. 90 Capsule 3 11/15/2022 Active Omeprazole 40 MG Oral Capsule Delayed Release (PriLOSEC) Take 1 Capsule by mouth in the morning. 0 Active Azithromycin 250 MG Oral Tablet (Zithromax Z-Douglas)Indications: COPD, moderate (HCC),COPD exacerbation (HCC) Take two tablets by mouth on first day, then 1 tablet daily until gone 6 Tablet 0 09/04/2023 Active Albuterol Sulfate HFA 108 (90 Base) MCG/ACT Inhalation Aerosol Solution Inhale 2 Puffs by mouth every 4 hours as needed for Shortness of Breath or Wheezing. 18 g 5 09/04/2023 Active Lisinopril 30 MG Oral TabletIndications: HTN, goal below 140/90 Take 1 Tablet by mouth in the morning. 90 Tablet 1 09/04/2023 Active Montelukast Sodium 10 MG Oral Tablet (Singulair)Indicat ions:COPD, moderate (HCC),COPD exacerbation (HCC) Take 1 Tablet by mouth in the morning. 90 Tablet 3 09/19/2023 Active Montelukast Sodium 10 MG Oral Tablet (Singulair)Indicat ions:COPD, moderate (HCC),COPD exacerbation (HCC) Take 1 Tablet by mouth in the morning. 30 Tablet 5 09/04/2023 3 Discontinue d(Refill) documented as of this encounter (statuses as of 09/19/2023) Active Problems Problem Noted Date Diagnosed Date [...] as of this encounter (statuses as of 09/19/2023) Resolved Problems Problem Noted Date Diagnosed Date [...] as of this encounter (statuses as of 09/19/2023) Social History Tobacco Use Types Packs/Day Years [...] encounter Miscellaneous Notes * Telephone Encounter - Anupama Huddleston PA-C - 09/19/2023 1:40 PM ESTSigned Prescriptions: Disp Refills Montelukast Sodium 10 MG Oral Tablet (Sing*90 Tab*3 Sig: Take 1 Tablet by mouth in the morning.Authorizing Provider: ANUPAMA HUDDLESTON documented in this encounter Plan of Treatment Upcoming Encounters Date Type Department Care Team (Late st Contact Info) Description 09/22/2023 1:15 PM EST Imaging Radiology [facility] 1st [facility], [place] [address] [place] [address] 12/19/2023 2:30 PM EST Laboratory [facility], [place] [address] [facility] [phone] [facility] [address] [place] [facility] [place] [address] 12/26/2023 3:00 PM EST Office Visit Hematology/Oncology [facility] [place] [address] [place] [address] Asiya Tom MD [address] [place] [address] 03/04/2024 2:00 PM EDT Office Visit [facility] Practice, [place] [address] [facility] [phone] Anupama Huddleston PA-C [address] [place] [address] Scheduled Procedures Name Priority Associated Diagnoses Date/Ti [...] 05/07/2018 LUNG CANCER SCREENING - USE SMARTSET 38022 Completed 03/23/2023, 03/07/2022 Alpha-1 Antitrypsin Completed 04/06/2023 [...] as of this encounter Visit Diagnoses Diagnosis COPD, moderate (HCC) Chronic airway obstruction, not elsewhere classified COPD exacerbation (HCC) Obstructive chronic bronchitis with exacerbation documented in this encounter Care Teams Shade Classifier Relationship Specialty Start Date End Date Anupama Huddleston PA-C [address] [facility] [place] [id number] PCP - General Physician Director Of Web Marketing 05/16/18 documented as of this encounter
--- OUTSIDE RECORDS SUMMARY | 2023-11-18 22:25 | External Medical Summary | Summary of Care ---
Author Name Unknown Organization [facility] Address [address] [place] [address] Phone [phone] Care Team Providers Care Director Of Ancillary Services Name Role Phone Anupama Huddleston PA-C Primary Care Provider [phone] [phone] Reason for Visit * Reason Comments Follow Up Pt presents for 6 mo nt follow up.No concerns. Encounter Details Date Type Department Care Team (Late st Contact Info) Description 09/04/2023 2:40 PM EST Office Visit [facility] [address] [place] [phone] Anupama Huddleston PA-C [address] [place] [address] Personal history of fall*; HTN, goal below 140/90; COPD, moderate (HCC); COPD exacerbation (HCC) Allergies Active Allergy Reactions Criticality Noted Date Comments Fexofenadine Hydrochloride High 08/21/ 6 Throat swelling Amitriptyline 06/13/2022 When taken [...] Active Doxepin HCl 25 MG Oral Capsule (SINEquan)Indicat ions:Insomnia, unspecified type Take 1 Capsule by mouth at bedtime. 90 Capsule 3 3 Active Omeprazole 40 MG Oral Capsule Delayed Release (PriLOSEC) Take 1 Capsule by mouth in the morning. 0 Active Azithromycin 250 MG Oral Tablet (Zithromax Z-Douglas)Indications :COPD, moderate (HCC),COPD exacerbation (HCC) Take two tablets by mouth on first day, then 1 tablet daily until gone 6 Tablet 0 3 Active Montelukast Sodium 10 MG Oral Tablet (Singulair)Indica tions:COPD, moderate (HCC),COPD exacerbation (HCC) Take 1 Tablet by mouth in the morning. 30 Tablet 5 3 Active Albuterol Sulfate HFA 108 (90 Base) MCG/ACT Inhalation Aerosol Solution Inhale 2 Puffs by mouth every 4 hours as needed for Shortness of Breath or Wheezing. 18 g 5 3 Active Lisinopril 30 MG Oral TabletIndications :HTN, goal below 140/90 Take 1 Tablet by mouth in the morning. 90 Tablet 1 3 Active Albuterol Sulfate HFA 108 (90 Base) MCG/ACT Inhalation Aerosol Solution Inhale by mouth 2 Puffs every 4 hours as needed for Shortness of Breath or Wheezing. 18 g 5 2 09/04/20 23 Discontinued(Ref ill) Lisinopril 30 MG Oral TabletIndications :HTN, goal below 140/90 Take 1 Tablet by mouth in the morning. 90 Tablet 1 3 09/04/20 23 Discontinued(Ref ill) Venlafaxine HCl ER 37.5 MG Oral Capsule Extended Release 24 Hour (Effexor XR)Indications:Ma estrada depressive disorder, recurrent episode, moderate (HCC) Take 1 Capsule by mouth in the morning. Do not cut, crush or chew. 90 Capsule 3 3 09/04/20 23 Discontinued Famotidine 40 MG Oral Tablet (Pepcid)Indicatio ns:Gastroesophage al reflux disease without esophagitis Take 1 Tablet by mouth in the morning. 90 Tablet 3 3 09/04/20 23 Discontinued documented as of this encounter (statuses as [...] on file documented as of this encounter Last Filed Vital Signs Vital Sign Reading Time Taken Comments Blood Pressure 148/64 09/04/2023 2:37 PM EST Pulse 104 09/04/2023 2:37 PM EST Temperature 36 C (96.8 F) 09/04/2023 2:37 PM EST Respiratory Rate 16 09/04/2023 2:37 PM EST Oxygen Saturation - - Inhaled Oxygen Concentration - - Weight 78.7 kg (173 lb 9.6 oz) 09/04/2023 2:37 P M EST Height - - Body Mass Index 26.01 06/08/2023 1:51 PM EDT documented in this encounter Progress Notes * Anupama Huddleston PA-C - 09/04/2023 2:56 PM EST Images from the original note were not included. History of Present Illness Shraddha Proctor is a 58 year old female that presents for Follow Up (Pt presents for 6 month follow up./No concerns.) Here for reg return She uses rescue prn. She has noted uptick in cough lately - coughing until she could vomit Cough is producing clear mucus. No fever or chills Denies chest pain Had a fall back in March. She has a bulge on her thigh that has not gone away. Does not cause her any pain. There as a big bruise after the fall in this location. She was walking her cat. He got wrapped around her legs. She tried to get untangled. She was on concrete. She did not find difference with the antidepressant The side affects of the famotidine are the same as the omeprazole. Past Medical History: Diagnosis Date Chronic alcohol dependence, continuous (HCC) COPD (chronic obstructive pulmonary disease) (HCC) COPD, moderate (HCC) Dyslipidemia, goal LDL below 100 GERD (gastroesophageal reflux disease) INFORMATION age 21 fx pelvis--fell off 8 foot scaffolding--8 days INFORMATION 08/2015 10 year calculated cardiovascular risk of 4% Irritable bowel syndrome (IBS) Major depressive disorder, recurrent episode, moderate (HCC) began as teen on and off meds-- no hospitalizations Tobacco use disorder ,h Physical Exam Vitals: 09/04/23 1437 Temp: 36 C (96.8 F) Pulse: 104 Resp: 16 BP: 148/64 BP Readings from Last 3 Encounters: 09/04/23 148/64 06/27/23 145/84 06/08/23 141/71 Wt Readings from Last 3 Encounters: 09/04/23 78.7 kg (173 lb 9.6 oz) 06/27/23 78.6 kg (173 lb 3.2 oz) 06/08/23 74.8 kg (165 lb) BMI Readings from Last 3 Encounters: 09/04/23 26.01 kg/m 06/27/23 25.95 kg/m 06/08/23 24.72 kg/m Ht Readings from Last 3 Encounters: 06/08/23 1.74 m (5' 8.5") 09/08/22 1.727 m (5' 8") 07/21/22 1.727 m (5' 8") General: alert, healthy, and no distress Head: Normocephalic, No masses, lesions, tenderness or abnormalities Eye Exam: PERRLA, extraocular movements intact, conjunctiva are pink and non- injected, sclera clear Ears: External ears normal, Canals clear, TM's Normal Nose: no mucosal erythema, no mucosal edema, no purulent discharge Oropharynx: no exudate, no erythema, lips, buccal mucosa, and tongue normal, and mucous membranes are moist Neck: supple, no adenopathy, no bruits, thyroid normal size, non-tender, without nodularity Heart: regular rate & rhythm, no murmur, no gallops, S-1 normal, and S-2 normal Lungs: chest symmetric with normal AP diameter, no chest deformities noted, no chest wall tenderness, lungs clear to auscultation Extremities: less than 2 second capillary refill, soft tissue mass on R lateral thigh Assessment and Plan Personal history of fall (Primary) - US EXTREMITY, NON-VASCULAR LIMITED; Future; Expected date: 09/04/2023 HTN, goal below 140/90 - Lisinopril 30 MG Oral Tablet; Take 1 Tablet by mouth in the morning. COPD, moderate (HCC) - Azithromycin 250 MG Oral Tablet (Zithromax Z-Douglas); Take two tablets by mouth on first day, then 1tablet daily until gone - Montelukast Sodium 10 MG Oral Tablet (Singulair); Take 1 Tablet by mouth in the morning. COPD exacerbation (HCC) - Azithromycin 250 MG Oral Tablet (Zithromax Z-Douglas); Take two tablets by mouth on first day, then 1tablet daily until gone - Montelukast Sodium 10 MG Oral Tablet (Singulair); Take 1 Tablet by mouth in the morning. Other orders - Albuterol Sulfate HFA 108 (90 Base) MCG/ACT Inhalation Aerosol Solution; Inhale 2 Puffs by mouth every 4 hours as needed for Shortness of Breath or Wheezing. Wrap-Up Refills done Treat cough Us for leg Labs due next visit Time: I spent a total of 20-29 minutes (exact time 29 mins) on the date of service in preparation, delivery, and documentation of the care provided to Shraddha Proctor excluding any time spent in the performance of separately billed services. Anupama Huddleston PA-C 09/04/2023 3:03 PM documented in this encounter Nursing Notes * Kary Martinez MED ASSIST - 09/04/2023 2:36 PM EST The patient has been properly identified by confirmation of name and date of . Chief Complaint Patient presents with Follow Up Pt presents for 6 month follow up. No concerns. documented in this encounter Plan of Treatment Upcoming Encounters Date Type Department Care Team (Late st Contact Info) Description 09/22/2023 1:15 PM EST Imaging Radiology [facility] 1st [facility], [address] [place] [address] 12/19/2023 2:30 PM EST Laboratory Laboratory, [place] [address] [facility] [phone] [place], Laboratory [address] [place] [facility] [place] [address] 12/26/2023 3:00 PM EST Office Visit Hematology/Oncology [employer] [facility] [place] [address] Asiya Tom MD [address] [facility] [place] [address] 03/04/2024 2:00 PM EDT Office Visit [facility] [address] [place] [phone] Anupama Huddleston PA-C [address] [place] [address] Scheduled Orders Name Type Priority Associated Diagnoses Orde r Schedule US EXTREMITY, NON-VASCULAR LIMITED Medical Imaging Routine Personal history of fall Expected: 09/04/2023, Expires: 10/04/2024 Scheduled Procedures Name Priority Associated Diagnoses Date/Ti [...] 05/07/2018 LUNG CANCER SCREENING - USE SMARTSET [id number] Completed 03/23/2023, 03/07/2022 Alpha-1 Antitrypsin Completed 04/06/2023 [...] as of this encounter Visit Diagnoses Diagnosis Personal history of fall- Primary HTN, goal below 140/90 Unspecified essential hypertension COPD, moderate (HCC) Chronic airway obstruction, not elsewhere classified COPD exacerbation (HCC) Obstructive chronic bronchitis with exacerbation documented in this encounter Care Teams Director Of Ancillary Services Relationship Specialty Start Date End Date Anupama Huddleston PA-C [address] [facility] [place] [address] PCP - General Physician Axle Polisher 05/16/18 documented as of this encounter
--- OUTSIDE RECORDS SUMMARY | 2023-11-18 22:25 | External Medical Summary | Summary of Care ---
Author Name Unknown Organization [facility] Address [address] [place] [address] Phone [phone] Care Team Providers Care Health And Safety Instructor Name Role Phone Anupama Huddleston PA-C Primary Care Provider [phone] [phone] Reason for Visit * Reason Onset Date Comments Order Request 08/14/[address] aced please Encounter Details Date Type Department Care Team (Late st Contact Info) Description 08/14/2023 Telephone [facility] [address] [place] [address] Anupama Huddleston PA-C [address] [place] [address] Order Request (Need an order placed please) Allergies Active Allergy Reactions Criticality Noted Date Comments Fexofenadine Hydrochloride High 6 Throat swelling Amitriptyline 06/13/2022 When taken with alcohol gets dissociation and blacks out Fluoxetine Hcl 01/21/2008 documented as of this encounter (statuses as of 08/15/2023) Medications Medication Sig Dispensed Refills Start Date [...] as of this encounter (statuses as of 08/15/2023) Active Problems Problem Noted Date Diagnosed Date [...] as of this encounter (statuses as of 08/15/2023) Resolved Problems Problem Noted Date Diagnosed Date [...] as of this encounter (statuses as of 08/15/2023) Social History Tobacco Use Types Packs/Day Years [...] encounter Miscellaneous Notes * Telephone Encounter - ISAURA Lovett - 08/14/2023 11:48 AM EDT Could you please place an order for a MAMMOGRAM SCREENING ELSY BILATERAL for pt, pt is sched on 08/16/23 at [facility] Thanks, Radiology Scheduling documented in this encounter Plan of Treatment Upcoming Encounters Date Type Department Care Team (Late st Contact Info) Description 08/16/2023 2:30 PM EDT Imaging Radiology [address] [place] [address] 09/08/2023 2:00 PM EST Office [facility] [place] [address] [facility] [phone] Anupama Huddleston PA-C [address] [facility] [address] 09/22/2023 1:15 PM EST Imaging Radiology [facility] [address] [facility] [place] [address] [facility] [address] 12/19/2023 2:30 PM EST Laboratory [facility], [place] [address] [facility] [phone] [facility] [address] [place] [address] 12/26/2023 3:00 PM EST Office Visit Hematology/Oncology [facility] [address] [facility] [place] [address] Asiya Tom MD [address] [place] [address] Scheduled Procedures Name Priority Associated Diagnoses Date/Ti [...] 05/07/2018 LUNG CANCER SCREENING - USE SMARTSET 15913 Completed 03/23/2023, 03/07/2022 Alpha-1 Antitrypsin Completed 04/06/2023 [...] filedocumented as of this encounter Care Teams Health And Safety Instructor Relationship Specialty Start Date End Date Anupama Huddleston PA-C [address] [place] [address] PCP - General Physician Lubricating Specialist 05/16/18 documented as of this encounter
--- OUTSIDE RECORDS SUMMARY | 2023-11-18 22:25 | External Medical Summary | Summary of Care ---
Author Name Unknown Organization [facility] Address [address] [place] [address] Phone [phone] Care Team Providers Care Auto Damage Appraiser Name Role Phone Anupama Huddleston PA-C Primary Care Provider [phone] [phone] Reason for Visit * Reason Onset Date Comments Medication Refill 10/25/2023 Encounter Details Date Type Department Care Team (Late st Contact Info) Description 10/25/2023 Refill [facility] [address] [place] [address] Anupama Huddleston PA-C [address] [place] [address] Insomnia, unspecified type Allergies Active Allergy Reactions Criticality Noted Date Comments Fexofenadine Hydrochloride High 6 Throat swelling Amitriptyline 06/13/2022 When taken with alcohol gets dissociation and blacks out Fluoxetine Hcl 01/21/2008 documented as of this encounter (statuses as of 10/27/2023) Medications Medication Sig Dispensed Refills Start Date [...] Oral Capsule (SINEquan)Indicati ons:Insomnia, unspecified type Take 2 Capsules by mouth at bedtime. 180 Capsule 0 10/27/2023 Active Doxepin HCl 25 MG Oral Capsule (SINEquan)Indicati ons:Insomnia, unspecified type Take 1 Capsule by mouth at bedtime. 90 Capsule 3 11/15/2022 4 Discontinue d(Refill) documented as of this encounter (statuses as of 10/27/2023) Active Problems Problem Noted Date Diagnosed Date [...] as of this encounter (statuses as of 10/27/2023) Resolved Problems Problem Noted Date Diagnosed Date [...] as of this encounter (statuses as of 10/27/2023) Social History Tobacco Use Types Packs/Day Years [...] Telephone Encounter - Anupama Huddleston PA-C - 10/27/2023 7:52 AM ESTSigned Prescriptions: Disp Refills Doxepin HCl 25 MG Oral Capsule (SINEquan) 180 Ca*0 Sig: Take 2 Capsules by mouth at bedtime.Authorizing Provider: ANUPAMA HUDDLESTON * Telephone Encounter - Kevin Pappas [facility] - 10/27/2023 2:49 AM ESTPending Prescriptions: Disp Refills Doxepin HCl 25 MG Oral Capsule (SINEquan) 90 Cap*3 Sig: Take 1 Capsule by mouth at bedtime. * Telephone Encounter - Kevin Pappas [facility] - 10/27/2023 2:47 AM EST Pt request for increase in dose to 50mg to cope with recent in family. Will pend rx for review and approval if appropriate. Did not modify rx. Thanks, Kevin Pappas [facility] Clinical Pharmacist Telepharmacy [phone] 10/27/2023 2:48 AM documented in this encounter Plan of Treatment Upcoming Encounters Date Type Department Care Team (Late st Contact Info) Description 12/19/2023 2:30 PM EST Laboratory Laboratory, [place] [address] [place] [facility] [place] [phone] [place], Laboratory [address] [place] [address] 12/26/2023 3:00 PM EST Office Visit Hematology/Oncology [place] [place] [address] [place] [address] Asiya Tom MD [address] [facility] [place] [address] 03/04/2024 2:00 PM EDT Office Visit [facility] [address] [place] [address] Anupama Huddleston PA-C [address], [place] [phone] Scheduled Procedures Name Priority Associated Diagnoses Date/Ti [...] Cancer Screening 03/05/2024 Pap Smear 03/05/2024 03/05/2021, 09/12/2012, 06/25/2013, Additional history exists O2 ASSESSMENT COMPLETED IN PAST YEAR FOR COPD 06/08/2024 06/08/2023 Mammogram 08/16/2024 08/16/2023, 12/0 05/2015, 09/07/2015, Additional history exists Diabetes Screening 06/27/2026 06/27/2023, 0 06/21/2023, 12/16/2022, Additional history exists COLONOSCOPY-EVERY 5 YRS AGES 18-100 06/08/2028 06/08/2023, 06/08/2023, 05/16/2018, Additional history exists Hepatitis C Screening Completed 05/07/2018 LUNG CANCER SCREENING - USE SMARTSET 67395 Completed 03/23/2023, 03/07/2022 Alpha-1 Antitrypsin Completed 04/06/2023 [...] type documented in this encounter Care Teams Auto Damage Appraiser Relationship Specialty Start Date End Date Anupama Huddleston PA-C [address] [facility] [id number] PCP - General Physician Marketing Representative 05/16/18 documented as of this encounter
--- OUTSIDE RECORDS SUMMARY | 2023-11-18 22:25 | External Medical Summary | Summary of Care ---
Author Name Unknown Organization [facility] Address [address] [place] [address] Phone [phone] Care Team Providers Care Utility System Repairer Name Role Phone Anupama Huddleston PA-C Primary Care Provider [phone] Reason for Visit * Reason Onset Date Comments Medication Refill 10/31/2023 Encounter Details Date Type Department Care Team (Late st Contact Info) Description 10/31/2023 Refill [facility] [address] [place] [address] Anupama Huddleston PA-C [address] [place] [address] Insomnia, unspecified type Allergies Active Allergy Reactions Criticality Noted Date Comments Fexofenadine Hydrochloride High 6 Throat swelling Amitriptyline 06/13/2022 When taken with alcohol gets dissociation and blacks out Fluoxetine Hcl 01/21/2008 documented as of this encounter (statuses as of 11/02/2023) Medications Medication Sig Dispensed Refills Start Date [...] at bedtime. 180 Capsule 0 11/02/2023 Active Doxepin HCl 25 MG Oral Capsule (SINEquan)Indicati ons:Insomnia, unspecified type Take 2 Capsules by mouth at bedtime. 180 Capsule 0 10/27/2023 4 Discontinue d(Refill) documented as of this encounter (statuses as of 11/02/2023) Active Problems Problem Noted Date Diagnosed Date [...] as of this encounter (statuses as of 11/02/2023) Resolved Problems Problem Noted Date Diagnosed Date [...] as of this encounter (statuses as of 11/02/2023) Social History Tobacco Use Types Packs/Day Years [...] encounter Miscellaneous Notes * Telephone Encounter - Marylou Lorenzana [facility] - 11/02/2023 6:34 AM ESTSigned Prescriptions: Disp Refills Doxepin HCl 25 MG Oral Capsule (SINEquan) 180 Ca*0 Sig: Take 2 Capsules by mouth at bedtime. Authorizing Provider: ANUPAMA HUDDLESTON User: MARYLOU LORENZANA * Telephone Encounter - Marylou Lorenzana RPh - 11/02/2023 6:33 AM EST Pharmacy states they did not receive transmitted script from 10/27. Pharmacist resending again. Thank you, Marylou Lorenzana, PharmD. Clinical Pharmacist [facility] ([facility] (formerly Telepharmacy) 11/02/2023, 6:33 AM documented in this encounter Plan of Treatment Upcoming Encounters Date Type Department Care Team (Late st Contact Info) Description 12/19/2023 2:30 PM EST Laboratory Laboratory, [place] [address] [place] [facility] [place] [phone] [facility] [address], [place] [phone] 12/26/2023 3:00 PM EST Office Visit Hematology/Oncology [facility] [address] [facility] [place] [address] Asiya Tom MD [address] [facility] [address] 03/04/2024 2:00 PM EDT Office Visit [facility], [place] [address] [place] [phone] Anupama Huddleston PA-C [address] [facility] [place] [phone] Scheduled Procedures Name Priority Associated Diagnoses Date/Ti [...] FOR COPD 06/08/2024 06/08/2023 Mammogram 08/16/2024 08/16/2023, 12/05/2015, 09/07/2015, Additional history exists Diabetes Screening 06/27/2026 06/27/2023, 0 06/21/2023, 12/16/2022, Additional history exists COLONOSCOPY-EVERY 5 YRS AGES 18-100 06/08/2028 06/08/2023, 06/08/2023, 05/16/2018, Additional history exists Hepatitis C Screening Completed 05/07/2018 LUNG CANCER SCREENING - USE SMARTSET 51847 Completed 03/23/2023, 03/07/2022 Alpha-1 Antitrypsin Completed 04/06/2023 [...] type documented in this encounter Care Teams Utility System Repairer Relationship Specialty Start Date End Date Anupama Huddleston PA-C [address] [place] [address] PCP - General Physician Motor Vehicle Light Assembler 05/16/18 documented as of this encounter
--- OUTSIDE RECORDS SUMMARY | 2023-11-18 22:25 | External Medical Summary | Summary of Care ---
Author Name Unknown Organization [facility] Address [address] [place] [address] Phone [phone] Care Team Providers Care Geographic Information Scientist Name Role Phone Anupama Huddleston PA-C Primary Care Provider [phone] [phone] Reason for Referral * (Within 10 days (routine)) - Authorized Specialty Diagnoses / Procedures Referred By Contac t Referred To Contact Radiology Diagnoses History of tobacco abuse Procedures LUNG CANCER SCREENING PROGRAM REFERRAL Anita Crabtree CRNP [address] [place] [address] Referral ID Status Reason Start Date Expiration Date V isits Requested Visits Authorized [id number] Authorized 09/23/2024 [id number] Encounter Details Date Type Department Care Team (Late st Contact Info) Description 09/25/2023 Orders Only STAIR LUNG NODULE [address] [place] [address] Anita Crabtree CRNP [address] [place] [address] History of tobacco abuse* Allergies Active Allergy Reactions Criticality Noted Date Comments Fexofenadine Hydrochloride High 6 Throat swelling Amitriptyline 06/13/2022 When taken with alcohol gets dissociation and blacks out Fluoxetine Hcl 01/21/2008 documented as of this encounter (statuses as of 09/25/2023) Medications Medication Sig Dispensed Refills Start Date [...] the morning. 90 Tablet 3 09/19/2023 Active documented as of this encounter (statuses as of 09/25/2023) Active Problems Problem Noted Date Diagnosed Date [...] as of this encounter (statuses as of 09/25/2023) Resolved Problems Problem Noted Date Diagnosed Date [...] as of this encounter (statuses as of 09/25/2023) Social History Tobacco Use Types Packs/Day Years [...] on file documented as of this encounter Plan of Treatment Upcoming Encounters Date Type Department Care Team (Late st Contact Info) Description 12/19/2023 2:30 PM EST [facility] [place] [address] [facility] [place] [phone] [place] [address] [facility] [place] [address] 12/26/2023 3:00 PM EST Office Visit Hematology/Oncology [place] [facility] [place] [address] [facility] [place], [place] [address] Asiya Tom MD [address] [facility] [place], [place] [address] 03/04/2024 2:00 PM EDT Office Visit [facility] [address] [place] [phone] Anupama Huddleston PA-C [address], [place] [phone] Scheduled Orders Name Type Priority Associated Diagnoses Orde r Schedule LUNG CANCER SCREENING PROGRAM REFERRAL Medical Imaging Routine History of tobacco abuse Expected: 09/23/2024, Expires: 09/25/2025 Scheduled Procedures Name Priority Associated Diagnoses Date/Ti [...] 05/07/2018 LUNG CANCER SCREENING - USE SMARTSET 35533 Completed 03/23/2023, 03/07/2022 Alpha-1 Antitrypsin Completed 04/06/2023 [...] as of this encounter Visit Diagnoses Diagnosis History of tobacco abuse- Primary Personal history of tobacco use, presenting hazards to health documented in this encounter Care Teams Geographic Information Scientist Relationship Specialty Start Date End Date Anupama Huddleston PA-C [address] [facility] [address] PCP - General Physician Semiconductor Wafers Tester 05/16/18 documented as of this encounter
--- OUTSIDE RECORDS SUMMARY | 2023-11-18 22:26 | External Medical Summary | Summary of Care ---
Author Name Unknown Organization [facility] Address [address] [place] [address] Phone [phone] Care Team Providers Care Undergraduate Intern Name Role Phone Anupama Huddleston PA-C Primary Care Provider [phone] Reason for Visit * Reason Comments Follow Up Encounter Details Date Type Department Care Team Description 06/27/2023 Office Visit Hematology/Oncology [facility] Maral Robbins [address] [place] [id number] Asiya Tom MD [address] [place] [address] Elevated serum creatinine*; Lymphoproliferative disease (HCC) Allergies Active Allergy Reactions Severity Noted Date Comments Fexofenadine Hydrochloride High 6 Throat swelling Amitriptyline 06/13/2022 When taken with alcohol gets dissociation and blacks out Fluoxetine Hcl 01/21/2008 documented as of this encounter (statuses as of 06/27/2023) Medications Medication Sig Dispensed Refills Start Date [...] as of this encounter (statuses as of 06/27/2023) Active Problems Problem Noted Date ILD (interstitial lung disease) 03/08/20 23 Chronic obstructive pulmonary disease wi th (acute) exacerbation 03/08/2023 COPD, group B, by GOLD 2017 classificati on 10/03/2022 Overview: Per COPD GOLD Classification SOB (shortness of breath) 02/18/2022 Abnormal results of liver function studi es 10/30/2015 Alcohol ingestion, 1-4 drinks per day INFORMATION 08/23/2015 Overview: 10 year calculated cardiovascular risk of 4% TIA (transient ischemic attack) 04/17/20 14 Overview: Historical- Alcoholic hepatitis 04/17/2014 Abnormal mammogram [...] as of this encounter (statuses as of 06/27/2023) Resolved Problems Problem Noted Date Resolved Date Lumbar paraspinal muscle spasm 10/30/2015 1 Bilateral low back pain without sciatica 016 08/18/2020 Breast cancer screening 08/31/2015 08/18/20 20 Screen for colon cancer 08/31/2015 08/18/20 20 Alcohol dependence, continuous 04/17/2014 1 10/31/2014 Tobacco use disorder 04/17/2014 08/18/2020 Encounter for routine gynecological examination 06/25/2013 08/18/2020 Overview: ICD-10 update of inactive term Acute sinusitis 06/25/2013 08/18/2020 Chronic rhinitis 06/25/2013 08/18/2020 Screening for cardiovascular condition 3 08/18/2020 Screening for diabetes mellitus 06/25/2013 08/18/2020 COPD exacerbation 01/21/2008 06/25/2013 Sprain, lumbosacral 04/19/2007 08/18/2020 Spasm of muscle 04/19/2007 08/18/2020 Dyslipidemia, goal to be determined 08/04/2004 11/27/2008 Overview: Resolved per Duplicate Protocol #2. Screening for malignant neoplasm of breast 08/0412/31/2008 Overview: Resolved per Screening Diagnosis Protocol #6 Dyslipidemia, goal to be determined 07/23/2004 09/03/2012 ACUTE URI NOS 07/23/2004 12/11/2008 Overview: Resolved per Benign Acute Dxs Protocol #3 TOBACCO MUCOSITIS 07/23/2004 09/03/2012 Cough 07/23/2004 09/03/2012 ACUTE SINUSITIS NOS 12/04/2001 12/11/2008 Overview: Resolved per Benign Acute Dxs Protocol #3 INFEC OTITIS EXTERNA, RIGHT 12/04/200107/24 DYSFUNCT EUSTACHIAN TUBE 12/04/2001 012 Tobacco use disorder 09/21/2001 09/03/2012 ACUTE BRONCHITIS 07/13/2000 09/03/2012 HISTORY OF TOBACCO USE 2 ALCOHOL ABUSE-UNSPEC 09/03/2012 COPD, moderate 10/06/2022 Overview: Per COPD GOLD Classification documented as of this encounter (statuses as of 06/27/2023) Social History Tobacco Use Types Packs/Day Years Used Date Smoking Tobacco: Every Day Cigarettes 1 46 Smokeless Tobacco: Never Tobacco Cessation:Ready to Q uit: Not Asked; Counseling Given: Not Answered Alcohol Use Standard Drinks/Week Comments Not Currently 40 (1 standard drink = 0.6 oz pure alcohol) alcoholic-tries not to drink during week, gets drunk on weekend 36 beers per weekend, but does not drink every day Food Insecurity Answer Date Recorded Within the past 12 months, y ou worried that your food would run out before you got money to buy more. Never true 02/11/2021 Within the past 12 months, t he food you bought just didn't last and you didn't have money to get more. Never true 02/11/2021 Sex Assigned at Date Recorded Not on file Job Start Date Occupation Industry Not on file Not on file Not on file documented as of this encounter Last Filed Vital Signs Vital Sign Reading Time Taken Comments Blood Pressure 145/84 06/27/2023 2:57 PM EDT Pulse 97 06/27/2023 2:57 PM EDT Temperature - - Respiratory Rate 18 06/27/2023 2:57 PM EDT Oxygen Saturation 94% 06/27/2023 2:57 PM EDT Inhaled Oxygen Concentration - - Weight 78.6 kg (173 lb 3.2 oz) 06/27/2023 2:57 P M EDT Height - - Body Mass Index 25.95 06/08/2023 1:51 PM EDT documented in this encounter Progress Notes * Asiya Tom MD - 06/27/2023 3:10 PM EDT Images from the original note were not included. Outpatient Consult Note Data Source: Patient, Epic record. Data Source: Patient, Epic record. 06/27/2023 3:10 PM Shraddha Proctor [id number] 58 year old Patient Encounter: HEMATOLOGY/ONCOLOGY [facility] Cancer Diagnosis: T-cell lymphoproliferative disorder Current Treatment: Observation Previous Treatment: None Oncologic History : 58-year-old female with a past medical history significant for the chronic alcohol dependence, COPD, dyslipidemia and depression was referred to me because of the abnormal finding on the CBC. Last CBC was done on 02/16/2021 shows WBC count of 10.49 hemoglobin 13.9 and platelet count 380. MCV was 98.2. Differential reveals neutrophil count of 28% count 61% with absolute lymphocyte count of6.4. Review of peripheral blood smear revealed lymphocytosis with increase in the large granular lymphocytes. This can be reactive or neoplastic finding. She has persistent lymphocytosis since 2018. 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 Blood Smear Interpretation Results reviewed by pathologist. Lymphocytosis with increase in large granular lymphocytes (approximately 50% of total lymphocytes are large granular lymphocytes; normal is 15-20%). This can be a reactive or neoplastic finding. 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 See comment. Comment: Reactive conditions can increase large granular lymphocytes in the peripheral blood. However, the aberrancy of CD57 and alpha/beta receptor restriction is suspicious for a clonal process like T-LGL. Clinically, the patient has no cytopenias arguing against T-LGL and it is not clear if the large granular lymphocytes were present in 2018 . Recommend ruling out any reactive conditions that may cause an increase in larger granular lymphocytes (autoimmune disease, drugs, or recent infection). Consider a bone marrow biopsy, molecular testing for STAT3 and T-cell receptor gene rearrangementstudies. Patient denies any headache, dizziness, blurred vision, chest pain, shortness breath, palpitation, abdominal pain or distention bleeding bruising, headache, dizziness, blurred vision, fever, night sweats, weight loss. She denies any hematuria or hematochezia. She smoke half pack per day for about 45 years. She claimed to be alcoholic for last many years andat a time drinks up to 12 packs per night or keep drinking till she gets drunk. Family history significant for the 4 maternal aunt were diagnosed of breast cancer. Grandmother wasdiagnosed of pancreatic cancer and grandfather was diagnosed of colon cancer. Interval History: She continues smoking 1/2 pack per day. Otherwise clinically she is doing well without any new symptoms complain. Her breathing is stable. Patient denies any headache, dizziness, blurred vision, chest pain, stable shortness breath, no palpitation,abdominal pain or distention, bleeding, bruising, nausea, vomiting, fever, night sweats, weight loss, hematuria, hematochezia. LABS/IMAGING: Results for orders placed or performed in visit on 06/21/23 COMPREHENSIVE METABOLIC PANEL Result Value Ref Range BUN 11 6 - 20 mg/dL Creatinine 1.2 (H) 0.5 - 1.0 mg/dL Estimated Glomerular Filtration Rate 51 (L) >=60 mL/min Sodium 133 (L) 135 - 146 mmol/L Potassium 4.9 3.5 - 5.1 mmol/L Chloride 99 98 - 107 mmol/L CO2 24 22 - 32 mmol/L Anion Gap 10 7 - 15 mmol/L Glucose 88 70 - 120 mg/dL Albumin 4.1 3.8 - 5.0 g/dL AST 26 10 - 35 U/L Alkaline Phosphatase 69 35 - 130 U/L Bilirubin, Total 0.2 <=1.2 mg/dL Calcium 8.9 8.4 - 10.2 mg/dL Protein 6.5 6.0 - 8.3 g/dL ALT 12 10 - 35 U/L CBC Result Value Ref Range WBC 9.13 4.00 - 10.80 K/uL RBC 3.81 3.85 - 5.15 M/uL HGB 12.5 12.0 - 15.3 g/dL HCT 38.0 36.0 - 45.2 % MCV 99.7 81.5 - 97.5 fL MCH 32.8 27.0 - 34.0 pg MCHC 32.9 32.0 - 36.0 g/dL RDW 13.7 11.5 - 15.5 % PLT 331 140 - 400 K/uL MPV 9.2 6.6 - 11.1 fL nRBCs 0 <=0 /100 WBCs DIFFERENTIAL, AUTOMATED Result Value Ref Range WBC 9.13 4.00 - 10.80 K/uL Neutrophils % 37.7 (L) 40.0 - 75.0 % Lymphocytes % 48.0 (H) 18.0 - 42.0 % Monocytes % 5.4 1.0 - 11.0 % Eosinophils % 7.6 (H) 0.0 - 6.0 % Basophils % 1.2 0.0 - 2.0 % Immature Granulocytes % 0.1 0.0 - 2.0 % Absolute Neutrophils 3.45 1.80 - 7.70 K/uL Absolute Lymphocytes 4.38 1.00 - 4.80 K/ul Absolute Monocytes 0.49 0.00 - 1.10 K/uL Absolute Eosinophils 0.69 0.00 - 0.70 K/uL Absolute Basophils 0.11 0.00 - 0.20 K/uL Absolute Immature Granulocytes 0.01 0.00 - 0.20 K/uL There is increase in the creatinine to 1.2 which is new. She was started on lisinopril for blood pressure few months ago. REVIEW OF SYSTEMS: General: No Fever, chills, night sweats, or weight loss. HEENT: No change in visual acuity, blurred or double vision. No epistaxis, facial pain, nasal discharge or change in hearing. Denies dysphagia, no muscosal ulceration, or sores noted. Cardiovascular: No chest pain, MOREJON, or palpitations Respiratory: No shortness of breath, cough, hemoptysis, or pleuritic chest pain Gastrointestinal: No abdominal pain, nausea, vomiting, diarrhea, rectal pain or bleeding Genitourinary: Denies Hematuria or dysuria Musculoskeletal: No bone pain Skin: No skin rash or lesions noted Neurologic: No numbness, weakness, neuropathic pain or change in cognitive function Psychiatric: No vegetative signs of depression Endocrine: No symptoms of hypothyroidism or hyperglycemia Hematologic: No bleeding or lymph nodes noted As mentioned above, all of the systems were reviewed in full and are unremarkable. Past Medical History: Diagnosis Date Chronic alcohol [...] off meds-- no hospitalizations Tobacco use disorder Current Outpatient Medications Medication Sig Dispense Refill Probiotic Acidophilus BioBeads Oral Capsule Take 1 Cap by mouth three times a day with meals. Vitamin B Complex-C Oral Capsule Take 1 Capsule by mouth in the morning. Albuterol Sulfate HFA 108 (90 Base) MCG/ACT Inhalation Aerosol Solution Inhale by mouth 2 Puffs every 4 hours as needed for Shortness of Breath or Wheezing. 18 g 5 Aspirin 81 MG Oral Capsule Take by mouth. Doxepin HCl 25 MG Oral Capsule (SINEquan) Take 1 Capsule by mouth at bedtime. 90 Capsule 3 Lisinopril 30 MG Oral Tablet Take 1 Tablet by mouth in the morning. 90 Tablet 1 Venlafaxine HCl ER 37.5 MG Oral Capsule Extended Release 24 Hour (Effexor XR) Take 1 Capsule by mouth in the morning. Do not cut, crush or chew. (Patient not taking: Reported on 06/07/2023) 90 Capsule3 Famotidine 40 MG Oral Tablet (Pepcid) Take 1 Tablet by mouth in the morning. (Patient not taking: Reported on 06/07/2023) 90 Tablet 3 Omeprazole 40 MG Oral Capsule Delayed Release (PriLOSEC) Take 1 Capsule by mouth in the morning. No current facility-administered medications for this visit. Social History Tobacco Use Smoking status: Every Day Packs/day: 1.00 Years: 46.00 Pack years: 46.00 Types: Cigarettes Smokeless tobacco: Never Vaping Use Vaping Use: Never used Substance Use Topics Alcohol use: Not Currently Alcohol/week: 40.0 standard drinks Types: 40 12 oz of beer per week Comment: alcoholic-tries not to drink during week, gets drunk on weekend 36 beers per weekend, but does not drink every day Drug use: No Comment: sober since 1983-- cocaine/marijuana, hallucinogens as teen Review of patient's allergies indicates: Allergen Reactions Love [Fexofenadine Hydrochloride] Throat swelling Amitriptyline When taken with alcohol gets dissociation and blacks out Prozac [Fluoxetine Hcl] PHYSICAL EXAMINATION: General Appearance: Healthy appearing patient in no acute distress BP 145/84 (BP Site: Left Arm, BP Position: Sitting, BP Cuff Size: Regular) | Pulse 97 | Resp 18 | Wt 78.6 kg (173 lb 3.2 oz) | LMP 11/25/2011 | SpO2 94% | BMI 25.95 kg/m | BSA 1.95 m Vitals reviewed. HEENT: No oral or pharyngeal masses, ulceration or thrush noted, no sinus tenderness. Neck is supple with no thyromegaly or JVD noted. Lymph Nodes: No lymphadenopathy noted in the occipital, pre and post auricular, cervical, supra andinfraclavicular, axillary, epitrochlear, inguinal, and popliteal region. Lungs/Thorax: Clear to auscultation, no accessory muscles of respiration being used. Heart: Regular rate and rhythm, normal S1, S2 Abdomen: Soft, nontender, bowel sounds present, no appreciable hepatosplenomegaly, no palpable masses Extremeties: Good pulses bilaterally, no peripheral edema. Skin: Normal skin tone with no rash, petechiae, ecchymosis noted. Musculoskeletal: No pain on palpation over bony prominence, no edema, no evidence of gout, no jointor bony deformity ASSESSMENT: 58-year-old female with a past medical history significant for the chronic alcohol dependence, COPD, dyslipidemia and depression was referred to me because of the abnormal finding on the CBC. 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 Patient with elevated stable counts for last 2 years. Clinically patient is doing well and her physical examination is unremarkable. There is no palpable splenomegaly on physical examination. Large granular lymphocyte (LGL) leukemia is a rare chronic lymphoproliferative disorder manifestingas leukemia in absence of any lymphadenopathy. This is a clonal disorder involving invasion of marrow, spleen, and liver. Her molecular genetic test was positive for T-cell beta gene rearrangement. Clinically she is doing well without any new symptoms complain physical examination is unremarkable. Overall her blood counts are stable with stable lymphocyte count. There is increase in the creatinine which is new. I will repeat her BMP today. If she continues to have elevated creatinine then I will inform the PCP for further management. PLAN: As above. She will return clinic for follow-up in 6 months with CBC and CMP. She will continue follow her PCP for all other medical problems. The patient voiced understanding of all of the above. All questions and concerns were addressed in an apparently satisfactory manner. Asiya Tom MD (This note was completed using the dictation program Fluency Direct. As such, there may be misspellings, word substitutions, or other variations that should not change the essence of the clinical content of this encounter note. If there is need for further clarification, please direct questions to me.) * Emelyn Almazan LPN - 06/27/2023 2:58 PM EDT Patient identifed by name and birthdate Do you have any concerns about pain management for today's visit? No Living Will or Advance Directive for Health Care as noted on the problem list. [facility] is a way you can talk to your provider on line through e-mail. Would you like to sign up? I can activate it for you? ALREADY ACTIVE Filed Vitals: 06/27/23 1457 BP: 145/84 Pulse: 97 Resp: 18 SpO2: 94% Weight: 78.6 kg (173 lb 3.2 oz) documented in this encounter Plan of Treatment Upcoming Encounters Date Type Specialty Care Team Description 09/08/2023 Office Visit Family Medicine Anupama Huddleston PASophiaC [address] [place] [address] 12/19/[address] [facility] [address] [place] [address] 12/26/2023 Office Visit Hematology Oncology Asiya Tom MD [address] [place] [phone] Pending Results Name Type Priority Associated Diagnoses Date /Time BASIC METABOLIC PANEL Lab Routine Elevated serum creatinine 06/27/2023 3:40 PM EDT Scheduled Orders Name Type Priority Associated Diagnoses Orde r Schedule BASIC METABOLIC PANEL Lab Routine Elevated serum creatinine Expected: 06/27/2023, Expires: 06/27/2024 CBC WITH WBC DIFFERENTIAL Lab Routine Lymphoproliferative disease (HCC) Expected: 01/09/2024, Expires: 07/27/2024 COMPREHENSIVE METABOLIC PANEL Lab Routine Lymphoproliferative disease (HCC) Expected: 01/09/2024, Expires: 07/27/2024 Scheduled Procedures Name Priority Associated Diagnoses Date/Ti [...] 2015 DISCUSS TOBACCO CESSATION (REFER TO SMARTSET #[id number]) 08/31/2016 08/31/2015 (Discussed) Mammogram 09/29/2016 09/29/2015, 08/23, 08/20/2013, Additional history exists Depression Screening, Annual for Pts 12 and Over 02/11/2022 02/11/2021 Influenza Vaccine (FLU shot) (#1) 2023 Cervical Cancer Screening 03/05/2024 Pap Smear 03/05/2024 03/05/2021, 0912/2012, 06/25/2013, Additional history exists O2 ASSESSMENT COMPLETED IN PAST YEAR FOR COPD 06/08/2024 06/08/2023 Diabetes Screening 06/21/2026 06/21/2023, 0 12/16/2022, 06/08/2022, Additional history exists COLONOSCOPY-EVERY 5 YRS AGES 18-100 06/08/2028 06/08/2023, 06/08/2023, 05/16/2018, Additional history exists LUNG CANCER SCREENING - USE SMARTSET [id number] Completed 03/23/2023, 03/07/2022 Alpha-1 Antitrypsin Completed 04/06/2023 [...] as of this encounter Visit Diagnoses Diagnosis Elevated serum creatinine- Primary Other nonspecific findings on examination of blood Lymphoproliferative disease (HCC) Neoplasm of uncertain behavior of other lymphatic and hematopoietic tissues documented in this encounter Care Teams Undergraduate Intern Relationship Specialty Start Date End Date Anupama Huddleston PA-C [address] [place] [address] PCP - General Physician Director Corporate 05/16/18 documented as of this encounter"
--- OUTSIDE RECORDS SUMMARY | 2023-11-18 22:26 | External Medical Summary | Summary of Care ---
Author Name Unknown Organization [facility] Address [address] [place] [address] Phone [phone] Care Team Providers Care Associate Professor Of Art Name Role Phone Anupama Huddleston PA-C Primary Care Provider [phone] Reason for Visit * Auth/Cert Specialty Diagnoses / Procedures Referred By Lore t Referred To Contact Diagnoses Family history of colon cancer Family history of colon cancer [Z80.0] Procedures COLONOSCOPY, DIAGNOSTIC (RECTUM) COLONOSCOPY FLEXIBLE PROXIMAL DIAGNOSTIC Referral ID Status Reason Start Date Expiration Date Visits Re quested Visits Authorized [id number] [phone] Encounter Details Date Type Department Care Team Description 06/08/2023 Hospital Encounter ENDO [facility], Endoscopy Room [facility] [address] [place] [phone] Glenn Key MD [address] [place] [id number] Colonoscopy Allergies Active Allergy Reactions Severity Noted Date Comments Fexofenadine Hydrochloride High 6 Throat swelling Amitriptyline 06/13/2022 When taken with alcohol gets dissociation and blacks out Fluoxetine Hcl 01/21/2008 documented as of this encounter (statuses as of 06/09/2023) Medications Medication Sig Dispensed Refills Start Date [...] 3 11/15/2022 Active Lisinopril 30 MG Oral TabletIndications :HTN, goal below 140/90 Take 1 Tablet by mouth in the morning. 90 Tablet 1 03/08/2023 Active Famotidine 40 MG Oral Tablet (Pepcid)Indicatio ns:Gastroesophage al reflux disease without esophagitis Take 1 Tablet by mouth in the morning. 90 Tablet 3 04/03/2023 Active Additional Information Patient not taking.Reported on 06/07/2023 Omeprazole 40 MG Oral Capsule Delayed Release (PriLOSEC) Take 1 Capsule by mouth in the morning. 0 Active Omeprazole Magnesium 20 MG Oral Tablet Delayed Release (PriLOSEC OTC) Take 1 Tablet by mouth in the morning. 0 3 Discontinue d(Medicatio n List Clean Up) Lisinopril 30 MG Oral TabletIndications :HTN, goal below 140/90 Take 1 Tablet (30 mg) by mouth in the morning. 90 Tablet 1 09/08/2022 3 Discontinue d(Refill) documented as of this encounter (statuses as of 06/09/2023) Active Problems Problem Noted Date ILD (interstitial [...] 04/17/2014 Abnormal mammogram 08/16/2013 Overview: Last Mammogram 2015 - Negative, no evidence of malignancy Tobacco use disorder 06/25/2013 ADVANCE DIRECTIVE INFORMATION 03/10/2006 Overview: No advance directive- info given FAMILY HX-BREAST MALIG 08/04/2004 Depression 08/08/2002 ABN PAP SMEAR-CERVIX 06/20/2002 Hepatomegaly 06/20/2002 Chronic Alcohol Dependence Irritable bowel syndrome (IBS) Dyslipidemia, goal LDL below 100 documented as of this encounter (statuses as of 06/09/2023) Resolved Problems Problem Noted Date Resolved Date [...] as of this encounter (statuses as of 06/09/2023) Social History Tobacco Use Types Packs/Day Years [...] Sign Reading Time Taken Comments Blood Pressure 141/71 06/08/2023 3:41 PM EDT Pulse 64 06/08/2023 3:41 PM EDT Temperature 36.2 C (97.1 F) 06/08/2023 3:41 PM ED T Respiratory Rate 16 06/08/2023 3:41 PM EDT Oxygen Saturation 97% 06/08/2023 3:41 PM EDT Inhaled Oxygen Concentration - - Weight 74.8 kg (165 lb) 06/08/2023 1:51 PM EDT Height 174 cm (5' 8.5") 06/08/2023 1:51 PM EDT Body Mass Index 24.72 06/08/2023 1:51 PM EDT documented in this encounter H&P Notes * Glenn Key MD - 06/08/2023 2:08 PM EDT Endoscopy Pre-Procedure Assessment Name: Shraddha Proctor Date: 06/08/2023 Time: 2:08 PM Procedure: Colonoscopy; with Indication(s) of colon polyp surveillance Endoscopy Pre-Procedure Assessment: Prior to the procedure, the patient was identified. The patient's history, medications and allergies were reviewed as per the Anesthesia Assessment. The patient is competent. The risks and benefits of the proposed procedure and the planned sedation were discussed with the patient. All questions were answered and informed consent for the procedure was obtained. This patient has undergone a preprocedural evaluation. A determination has been made to proceed with the planned procedure under [facility] procedural guidelines and the [facility] Non-Emergent, Elective Medical Services and Treatment Recommendations (published on 01-28-20). The community and hospital prevalence of COVID-19 has been discussed as well as this patient's specific risks associated with SARS-CoV-19 infection. Based upon the clinical acuity and patient-specific care considerations, this procedure is deemed a Tier II - Intermediate acuity treatment or service with either progression or the threat of progressive disease related to the delay in treatment. Not providing the service has the potential for increasing morbidity or mortality. Ht 1.74 m (5' 8.5") | Wt 74.8 kg (165 lb) | LMP 11/25/2011 | BMI 24.72 kg/m | BSA 1.9 m Prior to Admission medications Medication Sig Last Dose Discont. Omeprazole 40 MG Oral Capsule Delayed Release (PriLOSEC) Take 1 Capsule by mouth in the morning. 06/07/2023 Lisinopril 30 MG Oral Tablet Take 1 Tablet by mouth in the morning. 06/07/2023 Doxepin HCl 25 MG Oral Capsule (SINEquan) Take 1 Capsule by mouth at bedtime. 06/06/2023 Aspirin 81 MG Oral Capsule Take by mouth. 06/06/2023 Albuterol Sulfate HFA 108 (90 Base) MCG/ACT Inhalation Aerosol Solution Inhale by mouth 2 Puffs every 4 hours as needed for Shortness of Breath or Wheezing. Past Month Vitamin B Complex-C Oral Capsule Take 1 Capsule by mouth in the morning. 06/07/2023 Probiotic Acidophilus BioBeads Oral Capsule Take 1 Cap by mouth three times a day with meals. 06/07/2023 Famotidine 40 MG Oral Tablet (Pepcid) Take 1 Tablet by mouth in the morning. Patient not taking: Reported on 06/07/2023 Not Taking Venlafaxine HCl ER 37.5 MG Oral Capsule Extended Release 24 Hour (Effexor XR) Take 1 Capsule by mouth in the morning. Do not cut, crush or chew. Patient not taking: Reported on 06/07/2023 Not Taking Review of patient's allergies indicates: Allergen Reactions Love [Fexofenadine Hydrochloride] Throat swelling Amitriptyline When taken with alcohol gets dissociation and blacks out Prozac [Fluoxetine Hcl] Physical Exam: Mental Status Examination: alert and oriented. General: nad, calm Airway Examination: normal oropharyngeal airway and neck mobility. Respiratory Examination: symmetrical excursion Abd:soft/ntd ASA Grade: III - A patient with severe systemic disease. After reviewing the risks and benefits, the patient was deemed in satisfactory condition to undergothe procedure. The anesthesia plan was to use general anesthesia. Glenn Key MD 06/08/2023 documented in this encounter Procedure Notes * CUATE Shankar-Mehran - 06/08/2023 2:15 PM EDTAssociated Order(s): COLONOSCOPY [facility] Patient Name: Shraddha Proctor Procedure Date: 06/08/2023 2:15 PM Date of : 1965 Admit Type: Outpatient Note Status: Finalized Date of : 1965 Admit Type: Outpatient Age: 58 Room: Endo 3 Gender: Female Note Status: Finalized Procedure: Colonoscopy Indications: High risk colon cancer surveillance: Personal history of non- advanced adenoma Providers: Glenn Key MD (Doctor) Referring MD: CUATE Rocha (Referring MD) Medicines: Propofol per Anesthesia Complications: No immediate complications. Estimated blood loss: None. Procedure: Pre-Anesthesia Assessment: - - Prior to the procedure, a History and Physical was performed, patient medications, allergies and sensitivities were reviewed. The patient's tolerance of previous anesthesia was reviewed. See [facility] for further details. - The risks, benefits, and alternatives of the procedure including the sedation options and risks were discussed with the patient. All questions were answered and informed consent was obtained. - Patient identification and proposed procedure were verified prior to the procedure by the physician and the nurse. The procedure was verified in the procedure room. - See [facility] for documentation of the pre-procedure assessment including ASA status. - After I obtained informed consent, the scope was carefully and meticulously passed under direct vision only when the lumen was definitively identified. CO2 insufflation was utilized throughout the entire procedure exclusively. After I obtained informed consent, the scope was passed under direct vision. All instruments were visually inspected immediately before and after removal from the patient to ensure they are fully intact. Throughout the procedure, the patient's blood pressure, pulse, and oxygen saturations were monitored continuously.The colonoscopy was performed without difficulty. The patient tolerated the procedure well. The quality of the bowel preparation was good. The [id number] Colonoscope ([id number]) was introduced through the anus and advanced to the cecum, identified by appendiceal orifice and ileocecal valve. Findings & Specimens: The terminal ileum appeared normal. Two sessile polyps were found in the ascending colon. The polyps were 4 to 6 mm in size. These polyps were removed with a cold snare. Resection and retrieval were complete. The pathology specimen was placed into Bottle Number 1. Multiple small-mouthed diverticula were found in the sigmoid colon. Internal hemorrhoids were found during retroflexion. The exam was otherwise without abnormality on direct and retroflexion views. Impression: - The examined portion of the ileum was normal. - Two 4 to 6 mm polyps in the ascending colon, removed with a cold snare. Resected and retrieved. - Diverticulosis in the sigmoid colon. - Internal hemorrhoids. - The examination was otherwise normal on direct and retroflexion views. Recommendation: - Discharge patient to home (with escort). - Repeat colonoscopy in 5 years for surveillance based on pathology results. - Return to referring physician as previously scheduled. - Patient has a contact number available for emergencies. The signs and symptoms of potential delayed complications were discussed with the patient. Return to normal activities tomorrow. Written discharge instructions were provided to the patient. Glenn Key MD 06/08/2023 3:24:18 PM This report has been signed electronically. documented in this encounter Nursing Notes * Ashia Lopez RN - 06/08/2023 3:54 PM EDT Patient is alert, pain free, passing flatus and tolerating po fluids prior to discharge. Patient has been visited by Dr. Key. Patient has received and demonstrates understanding of discharge instructions. Patient is transported via ambulated to private auto accompanied by endo staff. * Manju Dow RN - 06/08/2023 3:24 PM EDT Specimen(s) and location(s) verified with physician post procedure 3:24 PM Manju Dow RN See anesthesia record for medication administered during procedure. Manju Dow RN Pre cleaning of scope at the bedside started by photo optics technician. No abdominal pressure given Patient tolerated procedure well. * Ashia Lopez RN - 06/08/2023 3:24 PM EDT Patient transferred to pacu 2 status post Colonoscopy Patient awake. Denies pain and nausea. Respirations are even and unlabored on room air. Abdomen soft and non distended. Vital signs stable. Report was received from TROUBLE DISPATCHER. RN at bedside. Call aguirre is available to the patient. * Doris Peterson RN - 06/08/2023 2:15 PM EDT The following pt discharge instructions reviewed with pt prior to prodedure: No driving today. No alcohol today. No signing of legal documents. Rest as much as possible today and can return to normal activities tomorrow. No operating any heavy equipment today. Diet as tolerated. Pt verbalized understanding. documented in this encounter Plan of Treatment Upcoming Encounters Date Type Specialty Care Team Description 06/20/2023 Laboratory Laboratory [facility] [address] [place] [address] 06/27/2023 Office Visit Hematology Oncology Asiya Tom MD [address] [place] [address] 09/08/2023 Office Visit Family Medicine Anupama Huddleston PA-C [address], [place] [address] Pending Results Name Type Priority Associated Diagnoses Date /Time SURGICAL PATHOLOGY Pathology Routine Family history of colon cancer 06/08/2023 3:25 PM EDT Scheduled Orders Name Type Priority Associated Diagnoses Orde r Schedule SURGICAL PATHOLOGY Pathology Routine Family history of colon cancer Release Upon Ordering for 1 Occurrences starting 06/08/2023, 1 completed Health Maintenance Due Date Last Done Comments [...] ASSESSMENT COMPLETED IN PAST YEAR FOR COPD 03/08/2024 06/08/2023 COLONOSCOPY-EVERY 3 YRS AGES 18-100 06/08/2026 06/08/2023, 05/16/2018, 05/16/2018 LUNG CANCER SCREENING - USE SMARTSET 81599 Completed 03/23/2023, 03/07/2022 Alpha-1 Antitrypsin Completed 04/06/2023 GARDASIL-HPV IMMUNIZATION SERIES Aged Out No longer eligible based on patient's age to complete this topic MENINGOCOCCAL (MENACTRA/MENVEO) Aged Out No longer eligible based on patient's age to complete this topic documented as of this encounter Medical Devices Not on filedocumented as of this encounter Procedures Procedure Name Priority Date/Time Associated Diagnosis Comments COLONOSCOPY 06/08/2023 2:15 PM EDT documented in this encounter Results * COLONOSCOPY (06/08/2023 2:15 PM EDT) 06/08/2023 2:15 PM EDT Procedure Note CUATE Shankar-Mehran - 06/08/2023 2:15 PM EDT [facility] Patient Name: Shraddha Proctor Procedure Date: 06/08/2023 2:15 PM Date of : 1965 Admit Type: Outpatient Note Status:Finalized Date of : 1965 Admit Type: Outpatient Age: 58 Room: [facility] 3 Gender: Female Note Status: Finalized Procedure: Colonoscopy Indications: High risk colon cancer surveillance: Personalhistory of non- advanced adenoma Providers: Glenn Key MD (Doctor) Referring MD: CUATE Rocha (Referring MD) Medicines: Propofol per Anesthesia Complications: No immediate complications. Estimated blood loss:None. Procedure: Pre-Anesthesia Assessment: - - Prior to the procedure, a History and Physicalwas performed, patient medications, allergies and sensitivities were reviewed. Thepatient's tolerance of previous anesthesia was reviewed. See Epic for furtherdetails. - The risks, benefits, and alternatives of theprocedure including the sedation options and risks were discussed with the patient.All questions were answered and informed consent was obtained. - Patient identification and proposed procedurewere verified prior to the procedure by the physician and the nurse. The procedure wasverified in the procedure room. - See [facility] for documentation of the pre-procedureassessment including ASA status. - After I obtained informed consent, the scope wascarefully and meticulously passed under direct vision only when the lumen wasdefinitively identified. CO2 insufflation was utilized throughout the entire procedureexclusively. After I obtained informed consent, the scope waspassed under direct vision. All instruments were visually inspected immediatelybefore and after removal from the patient to ensure they are fully intact. Throughout the procedure, the patient's bloodpressure, pulse, and oxygen saturations were monitored continuously.The colonoscopy wasperformed without difficulty. The patient tolerated the procedure well. The qualityof the bowel preparation was good. The [id number] Colonoscope ([id number]) was introducedthrough the anus and advanced to the cecum, identified by appendiceal orifice andileocecal valve. Findings & Specimens: The terminal ileum appeared normal. Two sessile polyps were found in the ascending colon. The polyps were4 to 6 mm in size. These polyps were removed with a cold snare. Resection and retrieval werecomplete. The pathology specimen was placed into Bottle Number 1. Multiple small-mouthed diverticula were found in the sigmoid colon. Internal hemorrhoids were found during retroflexion. The exam was otherwise without abnormality on direct and retroflexionviews. Impression: - The examined portion of the ileum was normal. - Two 4 to 6 mm polyps in the ascending colon,removed with a cold snare. Resected and retrieved. - Diverticulosis in the sigmoid colon. - Internal hemorrhoids. - The examination was otherwise normal on directand retroflexion views. Recommendation: - Discharge patient to home (with escort). - Repeat colonoscopy in 5 years for surveillancebased on pathology results. - Return to referring physician as previouslyscheduled. - Patient has a contact number available foremergencies. The signs and symptoms of potential delayed complications were discussed withthe patient. Return to normal activities tomorrow. Written discharge instructionswere provided to the patient. Glenn Key MD 06/08/2023 3:24:18 PM This report has been signed electronically. Anupama Huddleston PA-C [facility] documented in this encounter Visit Diagnoses Diagnosis Family history of colon cancer Family history of malignant neoplasm of gastrointestinal tract documented in this encounter Administered Medications Inactive Administered Medications - up to 3 most recent administrations Medication Order MAR Action Action Date Dose Rate Site isolyte-S pH 7.4 infusion Intravenous, at 100 mL/hr, Plasma-LYTE 148, isolyte-S, and isolyte-S pH 7.4 are considered equivalent - including for MAR barcode scanning., CONTINUOUS, Starting on Laurel 06/08/23 at 1430, Until Laurel 06/08/23 at 2002, Pre-Op Restarted 06/08/2023 3:23 PM EDT Continue from Pre-Op 06/08/2023 3:00 PM EDT 100 mL/hr New Bag 06/08/2023 2:18 PM EDT 100 mL/hr documented in this encounter Active and Recently Administered Medications Times are shown in EDT. Continuous Medication Order 06/06/2023 06/07/2023 06/08/2023 isolyte-S pH 7.4 infusion Intravenous, at 100 mL/hr, Plasma-LYTE 148, isolyte-S, and isolyte-S pH 7.4 are considered equivalent - including for MAR barcode scanning., CONTINUOUS, Starting on La[place] 06/08/23 at 1430, Until La[place] 06/08/23 at 2002, Pre-Op 1418 (New Bag - Prov ider: Doris Peterson RN)1500 (Continue from Pre-Op - Provider: Jazzy Kelsey CRNA)1522 (Paused - Provider: Jazzy Kelsey CRNA - Comment: Switch to gravity)1523 (Restarted - Provider: Jazzy Kelsey CRNA) documented in this encounter Care Teams Associate Professor Of Art Relationship Specialty Start Date End Date Anupama Huddleston PA-C [address] [place] [address] PCP - General Physician Chief Operations Officer 05/16/18 documented as of this encounter
--- OUTSIDE RECORDS SUMMARY | 2023-11-18 22:26 | External Medical Summary | Summary of Care ---
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 Allergy Reactions Severity Noted Date Comments Fexofenadine Hydrochloride High 6 Throat swelling Amitriptyline 06/13/2022 When taken with alcohol gets dissociation and blacks out Fluoxetine Hcl 01/21/2008 documented as of this encounter (statuses as of 06/21/2023) Medications Medication Sig Dispensed Refills Start Date [...] as of this encounter (statuses as of 06/21/2023) Active Problems Problem Noted Date ILD (interstitial [...] as of this encounter (statuses as of 06/21/2023) Resolved Problems Problem Noted Date Resolved Date [...] as of this encounter (statuses as of 06/21/2023) Social History Tobacco Use Types Packs/Day Years [...] Encounters Date Type Specialty Care Team Description 06/27/2023 Office Visit Hematology Oncology [place], Asiya Ordaz MD [address] [place] [address] 09/08/2023 Office Visit Family Medicine Anupama Huddleston PA-C [address] [place] [address] Pending Results Name Type Priority Associated Diagnoses Date /Time CBC WITH WBC DIFFERENTIAL Lab STAT T-cell large granular lymphocytic leukemia (HCC) 06/21/2023 3:59 PM EDT COMPREHENSIVE METABOLIC PANEL Lab STAT T-cell large granular lymphocytic leukemia (HCC) 06/21/2023 3:59 PM EDT CBC Lab STAT T-cell large granular lymphocytic leukemia (HCC) 06/21/2023 3:59 PM EDT DIFFERENTIAL, AUTOMATED Lab STAT T-cell large granular lymphocytic leukemia (HCC) 06/21/2023 3:59 PM EDT Scheduled Procedures Name Priority Associated Diagnoses Date/Ti [...] IN PAST YEAR FOR COPD 06/08/2024 06/08/2023 COLONOSCOPY-EVERY 5 YRS AGES 18-100 06/08/2028 06/08/2023, 06/08/2023, 05/16/2018, Additional history exists LUNG CANCER SCREENING - USE SMARTSET 19550 Completed 03/23/2023, 03/07/2022 Alpha-1 Antitrypsin Completed 04/06/2023 [...] as of this encounter Visit Diagnoses Diagnosis T-cell large granular lymphocytic leukemia (HCC) documented in this encounter Care Teams Social Studies Department Chair Relationship Specialty Start Date End Date Anupama Huddleston PA-C [address] [place] [address] PCP - General Physician Rounding And Backing Machine Operator 05/16/18 documented as of this encounter
--- OUTSIDE RECORDS SUMMARY | 2023-11-18 22:26 | External Medical Summary ---
Author Name Unknown Address Unknown Organization K01:LABORATORY [facility] - [address] [facility] [place] [address] Laboratory Report Ordering Provider Test Date Status GARRET MCCOY 06/21/2023 15:59:57 Final Observation Date Value Abnormality Reference (Units ) Status BUN 06/21/2023 15:59:57 11 6-20 (mg/dL) Final Creatinine 06/21/2023 15:59:57 1.2 Above high normal 0.5-1.0 (mg/dL) Final Glomerular filtration rate/1.73 sq M.predicted [Volume Rate/Area] in Serum, Plasma or Blood by Creatinine-based formula (CKD-EPI) 06/21/2023 15:59:57 51 Below low normal >=60 (mL/min) Final eGFR is calculated based on the CKD-EPI 2020 equation SODIUM 06/21/2023 15:59:57 133 Below low normal 135 -146 (mmol/L) Final Potassium 06/21/2023 15:59:57 4.9 3.5-5.1 (m mol/L) Final Cl 06/21/2023 15:59:57 99 98-107 (mm ol/L) Final CO2 06/21/2023 15:59:57 24 22-32 (mmo l/L) Final Anion gap 06/21/2023 15:59:57 10 7-15 (mmol /L) Final Glucose 06/21/2023 15:59:57 88 70-120 (mg /dL) Final Albumin 06/21/2023 15:59:57 4.1 3.8-5.0 (g /dL) Final AST (Aspartate aminotransferase) 06/21/2023 15:59:57 26 10-35 (U/L) Fin al Alk Phos 06/21/2023 15:59:57 69 35-130 (U/ L) Final Bilirubin, Total 06/21/2023 15:59:57 0.2 <=1 .2 (mg/dL) Final Calcium 06/21/2023 15:59:57 8.9 8.4-10.2 ( mg/dL) Final Protein 06/21/2023 15:59:57 6.5 6.0-8.3 (g /dL) Final ALT (Alanine aminotransferase) 06/21/2023 15:59:57 12 10-35 (U/L) Da ruiz Performing Location LABORATORY [facility] - [facility] [address] [facility] [address]
--- OUTSIDE RECORDS SUMMARY | 2023-11-18 22:26 | External Medical Summary ---
Author Name Unknown Address Unknown Organization K01:LABORATORY [facility] - [facility] [address] [facility] [address] Laboratory Report Ordering Provider Test Date Status GARRET MCCOY 06/21/2023 15:59:57 Final Observation Date Value Abnormality Reference (Units ) Status WBC, Total 06/21/2023 15:59:57 9.13 4.00-10.80 (K/uL) Final RBC 06/21/2023 15:59:57 3.81 3.85-5.15 (M/uL) Final Hemoglobin 06/21/2023 15:59:57 12.5 12.0-15.3 (g/dL) Final HCT 06/21/2023 15:59:57 38.0 36.0-45.2 (%) Final MCV 06/21/2023 15:59:57 99.7 81.5-97.5 (fL) Final MCH 06/21/2023 15:59:57 32.8 27.0-34.0 (pg) Final MCHC 06/21/2023 15:59:57 32.9 32.0-36.0 (g/dL) Final RDW 06/21/2023 15:59:57 13.7 11.5-15.5 (%) Final Platelets 06/21/2023 15:59:57 331 140-400 (K/uL) Final MPV 06/21/2023 15:59:57 9.2 6.6-11.1 (fL) Final Nucleated erythrocytes/100 leukocytes [Ratio] in Blood by Automated count 06/21/2023 15:59:57 0 <=0 (/100 WBCs) Final Performing Location LABORATORY [facility] - [address] [place] [address]
--- OUTSIDE RECORDS SUMMARY | 2023-11-18 22:26 | External Medical Summary | Summary of Care ---
Author Name Unknown Organization [facility] Address [address] [place] [address] Phone [phone] Care Team Providers Care State Patrol Officer Name Role Phone Anupama Huddleston PA-C Primary Care Provider [phone] Reason for Visit * Reason Onset Date Comments Test Results Lab 06/28/2023 Encounter Details Date Type Department Care Team Description 06/28/2023 Telephone Hematology/Oncology [place] [address] [facility] [place] [address] Asiya Tom MD 200 [facility] [place] [address] Test Results Lab Allergies Active Allergy Reactions Severity Noted Date Comments Fexofenadine Hydrochloride High 6 Throat swelling Amitriptyline 06/13/2022 When taken with alcohol gets dissociation and blacks out Fluoxetine Hcl 01/21/2008 documented as of this encounter (statuses as of 06/28/2023) Medications Medication Sig Dispensed Refills Start Date [...] as of this encounter (statuses as of 06/28/2023) Active Problems Problem Noted Date ILD (interstitial [...] as of this encounter (statuses as of 06/28/2023) Resolved Problems Problem Noted Date Resolved Date [...] as of this encounter (statuses as of 06/28/2023) Social History Tobacco Use Types Packs/Day Years [...] encounter Miscellaneous Notes * Telephone Encounter - Emelyn Almazan LPN - 06/28/2023 8:25 AM EDT Please review sodium levels as stated by Dr. Tom below, thanks. ----- Message from Asiya Tom MD sent at 06/28/2023 8:17 AM EDT ----- Sodium is 123. Please inform the PCP office for further management. documented in this encounter Plan of Treatment Upcoming Encounters Date Type Specialty Care Team Description 09/08/2023 Office Visit Family Medicine Anupama Huddleston PA-C [address], [place] [id number] 12/19/2023 Laboratory Laboratory [facility] [address] [facility] [place] [id number] 12/26/2023 Office Visit Hematology Oncology Asiya Tom MD 200 [facility] [employer] [address] Scheduled Procedures Name Priority Associated Diagnoses Date/Ti [...] exists LUNG CANCER SCREENING - USE SMARTSET 61677 Completed 03/23/2023, 03/07/2022 Alpha-1 Antitrypsin Completed 04/06/2023 [...] filedocumented as of this encounter Care Teams State Patrol Officer Relationship Specialty Start Date End Date Anupama Huddleston PA-C [address] [place] [address] PCP - General Physician Office Clerk Routine 05/16/18 documented as of this encounter
--- OUTSIDE RECORDS SUMMARY | 2023-11-18 22:26 | External Medical Summary ---
Author Name Unknown Address Unknown Organization K01[facility] [place] [address] [facility] [address] Laboratory Report Ordering Provider Test Date Status GARRET MCCOY 06/21/2023 15:59:57 Final Observation Date Value Abnormality Reference (Units ) Status SYNC LEUKOCYTES IN BLOOD BY AUTOMATED COUNT 06/21/2023 15:59:57 9.13 4.00-10.80 (K/uL) Final Segs 06/21/2023 15:59:57 37.7 Below low normal 40.0-75.0 (%) Final Lymphs % 06/21/2023 15:59:57 48.0 Above high normal 18.0-42.0 (%) Final Monos 06/21/2023 15:59:57 5.4 1.0-11.0 (%) Final Eosinophils 06/21/2023 15:59:57 7.6 Above high normal 0.0-6.0 (%) Final Basos 06/21/2023 15:59:57 1.2 0.0-2.0 (%) Final Immature Granulocyte, Percent 06/21/2023 15:59:57 0.1 0.0-2.0 (%) Final Absolute Segs 06/21/2023 15:59:57 3.45 1.80-7.70 (K/uL) Final Lymphs, absolute 06/21/2023 15:59:57 4.38 1.00-4.80 (K/ul) Final Monos, Abs 06/21/2023 15:59:57 0.49 0.00-1.10 (K/uL) Final Eos, Abs 06/21/2023 15:59:57 0.69 0.00-0.70 (K/uL) Final Basos, Abs 06/21/2023 15:59:57 0.11 0.00-0.20 (K/uL) Final Immature Granulocytes, Number 06/21/2023 15:59:57 0.01 0.00-0.20 (K/uL) Final Performing Location [facility] [place] [address] [facility] [address]
--- OUTSIDE RECORDS SUMMARY | 2023-11-18 22:26 | External Medical Summary | Summary of Care ---
Author Name Unknown Organization [facility] Address [address] [place] [address] Phone [phone] Care Team Providers Care Hairmasters Manager Name Role Phone Anupama Huddleston PA-C Primary Care Provider [phone] Reason for Visit * Reason Onset Date Comments Test Results Lab 06/28/2023 Encounter Details Date Type Department Care Team Description 06/28/2023 Telephone Hematology/Oncology [facility] [place] [address] [facility] [place] [address] Asiya Tom MD 200 [facility] [place] [address] Test Results Lab Allergies Active Allergy Reactions Severity Noted Date Comments Fexofenadine Hydrochloride High 6 Throat swelling Amitriptyline 06/13/2022 When taken with alcohol gets dissociation and blacks out Fluoxetine Hcl 01/21/2008 documented as of this encounter (statuses as of 07/06/2023) Medications Medication Sig Dispensed Refills Start Date [...] Oral Capsule Extended Release 24 Hour (Effexor XR)Indications:Lyiah r depressive disorder, recurrent episode, moderate (HCC) [...] as of this encounter (statuses as of 07/06/2023) Active Problems Problem Noted Date ILD (interstitial [...] as of this encounter (statuses as of 07/06/2023) Resolved Problems Problem Noted Date Resolved Date [...] as of this encounter (statuses as of 07/06/2023) Immunizations Name Administration Dates Next Due Diptheria/Tetanus [...] encounter Miscellaneous Notes * Telephone Encounter - Mikala Joiner LPN - 07/06/2023 9:20 AM EDT Left message for pt to call back. * Addendum Note - Anupama Huddleston PA-C - 07/05/2023 4:46 PM EDTAddended by: ANUPAMA HUDDLESTON on: 07/05/2023 04:46 PM Modules accepted: Orders * Telephone Encounter - Anupama Huddleston PA-C - 07/05/2023 4:45 PM EDT Please ask patient to repeat lab work to see if electrolyte imbalance has improved Electrolyte imbalance (Primary) - BASIC METABOLIC PANEL; Future; Expected date: 07/05/2023 Anupama Huddleston PA-C 07/05/2023 4:45 PM * Telephone Encounter - Emelyn Almazan LPN [...] Family Medicine Anupama Huddleston PA-C [address] [place] [address] 12/19/[address] [facility] [address] [place] [address] 12/26/2023 Office Visit Hematology Oncology Asiya Tom MD [address] [place] [address] Scheduled Orders Name Type Priority Associated Diagnoses Orde r Schedule BASIC METABOLIC PANEL Lab Routine Electrolyte imbalance Expected: 07/05/2023 (Approximate), Expires: 07/04/2024 Scheduled Procedures Name Priority Associated Diagnoses Date/Ti [...] exists LUNG CANCER SCREENING - USE SMARTSET 19799 Completed 03/23/2023, 03/07/2022 Alpha-1 Antitrypsin Completed 04/06/2023 [...] as of this encounter Visit Diagnoses Diagnosis Electrolyte imbalance- Primary Electrolyte and fluid disorders not elsewhere classified documented in this encounter Care Teams Hairmasters Manager Relationship Specialty Start Date End Date Anupama Huddleston PA-C [address] [place] [address] PCP - General Physician Courtesy Car Driver 05/16/18 documented as of this encounter
--- OUTSIDE RECORDS SUMMARY | 2023-11-18 22:26 | External Medical Summary | Summary of Care ---
Author Name Unknown Organization [facility] Address [address] [place] [address] Phone [phone] Care Team Providers Care Food Safety Director Name Role Phone Anupama Huddleston PA-C Primary Care Provider [phone] Reason for Visit * Reason Onset Date Comments Test Results Lab 06/28/2023 Encounter Details Date Type Department Care Team Description 06/28/2023 Telephone Hematology/Oncology [facility] [place] [address] [facility] [place] [address] Asiya Tom MD 200 [facility] [place] [address] Test Results Lab Allergies Active Allergy Reactions Severity Noted Date Comments Fexofenadine Hydrochloride High 6 Throat swelling Amitriptyline 06/13/2022 When taken with alcohol gets dissociation and blacks out Fluoxetine Hcl 01/21/2008 documented as of this encounter (statuses as of 07/05/2023) Medications Medication Sig Dispensed Refills Start Date [...] as of this encounter (statuses as of 07/05/2023) Active Problems Problem Noted Date ILD (interstitial [...] as of this encounter (statuses as of 07/05/2023) Resolved Problems Problem Noted Date Resolved Date [...] as of this encounter (statuses as of 07/05/2023) Immunizations Name Administration Dates Next Due Diptheria/Tetanus [...] Family Medicine Anupama Huddleston PA-C [address], [place] [phone] 12/19/2023 Laboratory Laboratory [facility] [address] [place] [address] 12/26/2023 Office Visit Hematology Oncology [place], Asiya Ordaz MD [address] [place], [place] [id number] Scheduled Orders Name Type Priority Associated Diagnoses [...] 2015 DISCUSS TOBACCO CESSATION (REFER TO SMARTSET #1571) 08/31/2016 08/31/2015 (Discussed) Mammogram 09/29/2016 09/29/2015, 08/23, [...] exists LUNG CANCER SCREENING - USE SMARTSET 59037 Completed 03/23/2023, 03/07/2022 Alpha-1 Antitrypsin Completed 04/06/2023 [...] classified documented in this encounter Care Teams Food Safety Director Relationship Specialty Start Date End Date Anupama Huddleston PA-C [address] [place] [address] PCP - General Physician Ritual Circumciser 05/16/18 documented as of this encounter
--- OUTSIDE RECORDS SUMMARY | 2023-11-18 22:26 | External Medical Summary ---
Author Name Unknown Address Unknown Organization K09:[facility] [place] [address] [place] [address] Laboratory Report Ordering Provider Test Date Status INA MENENDEZ 06/27/2023 15:40:23 Final Observation Date Value Abnormality Reference (Units ) Status BUN 06/27/2023 15:40:23 12 6-20 (mg/dL) Final Creatinine 06/27/2023 15:40:23 0.7 0.5-1.0 (mg/dL) Final Glomerular filtration rate/1.73 sq M.predicted [Volume Rate/Area] in Serum, Plasma or Blood by Creatinine-based formula (CKD-EPI) 06/27/2023 15:40:23 >90 >=60 (mL/min) Final eGFR is calculated based on the CKD-EPI 2020 equation SODIUM 06/27/2023 15:40:23 123 Below low normal 135 -146 (mmol/L) Final Results rechecked. Potassium 06/27/2023 15:40:23 5.7 Above high normal 3. 5-5.1 (mmol/L) Final Cl 06/27/2023 15:40:23 89 Below low normal 98- 107 (mmol/L) Final CO2 06/27/2023 15:40:23 23 22-32 (mmo l/L) Final Anion gap 06/27/2023 15:40:23 11 7-15 (mmol /L) Final Glucose 06/27/2023 15:40:23 101 70-120 (mg /dL) Final Calcium 06/27/2023 15:40:23 9.6 8.4-10.2 ( mg/dL) Final Performing Location [facility] [place] [address] [place] [address]
--- OUTSIDE RECORDS SUMMARY | 2023-11-18 22:26 | External Medical Summary | Summary of Care ---
Author Name Unknown Organization [facility] Address [address] [place] [address] Phone [phone] Care Team Providers Care Ink Technician Name Role Phone Anupama Huddleston PA-C Primary Care Provider [phone] Reason for Visit * Reason Comments Outpatient Testing Encounter Details Date Type Department Care Team Description 06/27/2023 Laboratory Laboratory [facility] [place] [address] [place] [address] [facility] [place] [address] Elevated serum creatinine Allergies Active Allergy Reactions Severity Noted Date [...] Family Medicine Anupama Huddleston PASophiaC [address] [place] [address] 12/19/2023 Laboratory Laboratory [facility] [address] [place] [address] 12/26/2023 Office Visit Hematology Oncology Asiya Tom MD 200 [place] [address] Pending Results Name Type Priority Associated Diagnoses Date /Time BASIC METABOLIC PANEL Lab Routine Elevated serum creatinine 06/27/2023 3:40 PM EDT Scheduled Procedures Name Priority Associated [...] exists LUNG CANCER SCREENING - USE SMARTSET 42331 Completed 03/23/2023, 03/07/2022 Alpha-1 Antitrypsin Completed 04/06/2023 [...] this encounter Visit Diagnoses Diagnosis Elevated serum creatinine Other nonspecific findings on examination of blood documented in this encounter Care Teams Ink Technician Relationship Specialty Start Date End Date Anupama Huddleston PA-C [address] [place] [address] PCP - General Physician Information Technology Coordinator 05/16/18 documented as of this encounter
[2023-11-18] MEDS ORDERED: LORazepam 1 MG/1 ML SYR ED Inj Use IV STA (22:37)
--- NOTE | 2023-11-18 22:37 | Emergency Department Note ---
History of Present Illness General Chief complaint: Hypertension Stated complaint: SOB, HEADACHE, DIZZY, NAUSEA, L ARM NUMB Time Seen by Provider: 11/18/23 22:25 History of Present Illness Maximum Pain Intensity: 2 This 58-year-old female that smokes presents to the ER complaining of headache, lightheadedness, chest pain, shortness of breath and left hand numbness. Patient denies fever, chills, loss of vision, abdominal pain, vomiting, diarrhea. Patient states she took an extra lisinopril because her blood pressure was high. Patient states she had a couple Coors light prior to arrival. She states she drinks a lot of water. Home Medications Medication Instructions Recorded Confirmed Type albuterol sulfate 90 mcg/actuation 2 puff inhalation Q4 PRN Shortness 07/17/22 07/17/22 History aerosol inhaler Of Breath Or Wheezing cyclobenzaprine 5 mg tablet 5 mg PO Q8 PRN Pain 07/17/22 07/17/22 History ipratropium 0.5 mg-albuterol 3 mg 3 ml inhalation Q4 PRN 07/17/22 07/17/22 History (2.5 mg base)/3 mL nebulization wheezing/dyspnea soln lisinopril 10 mg tablet 10 mg PO DAILY #30 tabs 07/17/22 Rx umeclidinium 62.5 mcg/actuation 1 inh inhalation UD 07/17/22 07/17/22 History blister powder for inhalation (Incruse Ellipta) Allergies Allergy/AdvReac Type Severity Reaction Status Date / Time amoxicillin Allergy Severe ANAPHYLAXIS Verified 07/17/22 15:04 fexofenadine Allergy Severe ANAPHYLAXIS Verified 07/17/22 15:04 Penicillins Allergy Severe ANAPHYLAXIS Verified 07/17/22 15:04 fluoxetine Allergy Unknown PT "CAN'T Verified 07/17/22 15:04 REMEMBER" Past Med/Surg History Medical History Hypertension Alcohol abuse Social History Smoking Status: Current every day smoker Tobacco Type: Cigarettes Preferred Language: Upper Sorbian Feels Safe at Home: Yes Review of Systems A total of 10 systems reviewed and were otherwise negative Physical Exam Vital Signs Vital Signs - 24 hr 11/18/23 22:22 11/18/23 22:40 11/18/23 22:42 Temperature 36.4 C L Temperature Source Temporal Artery Scan Pulse Rate 100 H 99 H Pulse Rate [Apical] 103 H Pulse Rhythm [Apical] Pulse Strength [Apical] Respiratory Rate 18 18 Respiratory Effort / Characteristics Non-Labored Spontaneous Respiratory Depth Normal Respiratory Pattern Regular Blood Pressure 205/104 H Blood Pressure [Left Arm] 200/105 H Blood Pressure Mean 137 Blood Pressure Mean [Left Arm] 136 Blood Pressure Position Sitting Pulse Oximetry 97 100 Oxygen Delivery Method Room Air Room Air Sepsis Recent Fever Within 48 Hours No Sepsis New/Unexplained Change in Mental Status N/A Sepsis Action Taken by Nursing No Action Required 11/18/23 22:43 11/19/23 00:00 Temperature Temperature Source Pulse Rate Pulse Rate [Apical] 99 H 102 H Pulse Rhythm [Apical] Regular Regular Pulse Strength [Apical] Normal Respiratory Rate 18 18 Respiratory Effort / Characteristics Non-Labored Respiratory Depth Normal Respiratory Pattern Blood Pressure Blood Pressure [Left Arm] 157/86 H 172/88 H Blood Pressure Mean Blood Pressure Mean [Left Arm] 109 116 Blood Pressure Position Pulse Oximetry 97 97 Oxygen Delivery Method Room Air Room Air Sepsis Recent Fever Within 48 Hours Sepsis New/Unexplained Change in Mental Status Sepsis Action Taken by Nursing VITALS: Vitals are noted on the nurse's note and reviewed by myself. Vital signs hypertensive. GENERAL: Pleasant female following all commands, in no acute distress, nondiaphoretic, well-developed well-nourished. SKIN: The skin was without rashes, erythema, edema, or bruising. There is no tenting of the skin. Capillary reflex less than 2 seconds. HEAD: Normocephalic atraumatic. EARS: External auditory canals clear, EYES: Pupils equal round and reactive to light and accommodation. Conjunctivae without injection, sclerae without icterus. Extraocular movements intact. NOSE: Patent, turbinates without inflammation or discharge MOUTH: Mucous membranes moist. Pharynx without erythema or exudate. Uvula midline. Airway patent. Tongue does not deviate. NECK: Supple without nuchal rigidity. No lymphadenopathy. No thyromegaly. Cervical spine is nontender. No JVD. HEART: Regular rate and rhythm LUNGS: Clear to auscultation bilaterally without wheezes, rales or rhonchi. No retractions or accessory muscle use. ABDOMEN: Positive bowel sounds x 4. Normal tympanic percussion. Soft, nontender, without masses or organomegaly. Null sign negative. No guarding or rebound tenderness. No CVA tenderness MUSCULOSKELETAL: No muscle atrophy, erythema, or edema noted. 5-5 strength throughout. NEURO: Patient was alert and oriented to person place and time. Cranial nerves II through XII grossly intact. No pronator drift. Cerebellar exam intact. Normal sensation to light and sharp touch. No focal neurological deficits. Course Administered Medications Discontinued Medications Sodium Chloride (Nss) 1,000 mls @ 999 mls/hr IV .Q1H1M ONE Stop: 11/18/23 23:44 Last Infusion: 11/19/23 00:14 Dose: Infused Documented By: Admin: 11/18/23 23:05 Dose: 999 mls/hr Documented By: SONJA Ioversol (Optiray 320 125ml) 118 ml IV ONCE ONE Stop: 11/18/23 23:06 Last Admin: 11/18/23 23:06 Dose: 118 ml Documented By: LIYAH Lorazepam (Lorazepam 1 Mg/1 Ml Syr Ed Inj Use) 1 mg IV ONE STA Stop: 11/18/23 22:38 Last Admin: 11/18/23 23:05 Dose: 1 mg Documented By: SONJA Medical Decision Making Medical Records Attestation: I reviewed the patient's medical records. Home Medications Current Medication List: was personally reviewed by me Laboratory Data Attestation: I reviewed the patient's lab results. 11/18/23 22:35 11/18/23 22:35 Lab Results 11/18/23 11/18/23 11/18/23 Range/Units 22:35 22:39 22:40 WBC 11.13 H (4.8-10.8) K/ul RBC 3.83 L (4.20-5.40) M/uL Hgb 12.3 (12.0-16.0) g/dl POC Hgb 12.6 (12.0-16.0) g/dl Hct 34.6 L (37.0-47.0) % POC Hct 37 (37-47) % MCV 90.3 (80.0-100.0) fL MCH 32.1 (25.0-34.0) pg MCHC 35.5 (32.0-36.0) g/dL RDW Std Deviation 44.1 (36.4-46.3) fL RDW Coeff of Ever 13.4 (11.5-14.5) % Plt Count 265 (130-400) K/uL MPV 8.3 L (9.4-12.4) fL Neutrophils % (Manual) 30 % Lymphocytes % (Manual) 46 % Monocytes % (Manual) 4 % Eosinophils % (Manual) 3 % Basophils % (Manual) 1 % Neutrophils # (Manual) 3.34 (1.40-6.50) K/uL Total Absolute Neuts 3.34 (1.4-6.5) K/uL Lymphocytes # (Manual) 5.12 H (1.2-3.4) K/uL Total Abs Lymphocytes 6.90 H (1.2-3.4) K/uL Monocytes # (Manual) 0.45 (0.11-0.59) K/uL Eosinophils # (Manual) 0.33 (0-0.50) K/uL Basophils # (Manual) 0.11 (0-0.2) K/uL Large Granular Lymphs 16 % # Lrg Granular Lymphs 1.78 K/uL Rouleaux 1+ PT 10.3 (9.0-12.0) Seconds INR 0.9 (0.9-1.1) APTT 29 (21-31) Seconds PTT Ratio 1.0 POC Sodium 120 L (135-144) mmol/L Sodium 120 L (136-145) mmol/L POC Potassium 4.2 (3.3-5.0) mmol/L Potassium 4.1 (3.5-5.1) mmol/L POC Chloride 88 L (101-112) mmol/L Chloride 89 L (98-107) mmol/L Carbon Dioxide 21 (21-32) mmol/L POC Total CO2 22 L (24-31) mmol/L Anion Gap 10 (3-11) POC Anion Gap 15.0 L (16-25) mmol/L POC BUN 10 (7-18) mg/dl BUN 11 (6-23) mg/dl Creatinine 0.81 (0.6-1.2) mg/dl POC Creatinine 0.9 (0.6-1.3) mg/dl Est Cr Clr Drug Dosing 84.1 ml/min Est GFR ( Amer) 92.8 ml/min Est GFR (Non-Af Amer) 80.1 ml/min BUN/Creatinine Ratio 13.6 (10-20) Glucose 96 (70-99(Fasting)) mg/dl POC Glucose 104 H (70-99) mg/dl POC Glucose (other) 97 (70-99) mg/dl Osmolality 255 L (280-300) mOsm/kg Calcium 8.7 (8.6-10.3) mg/dl POC Ioniz Calcium Vijay 1.10 L (1.12-1.32) mmol/l Magnesium 1.8 (1.7-2.4) mg/dl Total Bilirubin 0.3 (0.2-1.0) mg/dl AST 24 (13-39) U/L ALT 8 (7-52) U/L Alkaline Phosphatase 74 (34-104) U/L Troponin I High Sens 5.8 (0-14) pg/ml Total Protein 7.3 (6.0-8.3) gm/dl Albumin 4.3 (3.4-5.0) gm/dl Globulin 3.0 (2.5-4.0) gm/dl Albumin/Globulin Ratio 1.4 (0.9-2) Ethyl Alcohol mg/dL (<10.0) mg/dl 11/18/23 Range/Units 23:15 WBC (4.8-10.8) K/ul RBC (4.20-5.40) M/uL Hgb (12.0-16.0) g/dl POC Hgb (12.0-16.0) g/dl Hct (37.0-47.0) % POC Hct (37-47) % MCV (80.0-100.0) fL MCH (25.0-34.0) pg MCHC (32.0-36.0) g/dL RDW Std Deviation (36.4-46.3) fL RDW Coeff of Ever (11.5-14.5) % Plt Count (130-400) K/uL MPV (9.4-12.4) fL Neutrophils % (Manual) % Lymphocytes % (Manual) % Monocytes % (Manual) % Eosinophils % (Manual) % Basophils % (Manual) % Neutrophils # (Manual) (1.40-6.50) K/uL Total Absolute Neuts (1.4-6.5) K/uL Lymphocytes # (Manual) (1.2-3.4) K/uL Total Abs Lymphocytes (1.2-3.4) K/uL Monocytes # (Manual) (0.11-0.59) K/uL Eosinophils # (Manual) (0-0.50) K/uL Basophils # (Manual) (0-0.2) K/uL Large Granular Lymphs % # Lrg Granular Lymphs K/uL Rouleaux PT (9.0-12.0) Seconds INR (0.9-1.1) APTT (21-31) Seconds PTT Ratio POC Sodium (135-144) mmol/L Sodium (136-145) mmol/L POC Potassium (3.3-5.0) mmol/L Potassium (3.5-5.1) mmol/L POC Chloride (101-112) mmol/L Chloride (98-107) mmol/L Carbon Dioxide (21-32) mmol/L POC Total CO2 (24-31) mmol/L Anion Gap (3-11) POC Anion Gap (16-25) mmol/L POC BUN (7-18) mg/dl BUN (6-23) mg/dl Creatinine (0.6-1.2) mg/dl POC Creatinine (0.6-1.3) mg/dl Est Cr Clr Drug Dosing ml/min Est GFR ( Amer) ml/min Est GFR (Non-Af Amer) ml/min BUN/Creatinine Ratio (10-20) Glucose (70-99(Fasting)) mg/dl POC Glucose (70-99) mg/dl POC Glucose (other) (70-99) mg/dl Osmolality (280-300) mOsm/kg Calcium (8.6-10.3) mg/dl POC Ioniz Calcium Vijay (1.12-1.32) mmol/l Magnesium (1.7-2.4) mg/dl Total Bilirubin (0.2-1.0) mg/dl AST (13-39) U/L ALT (7-52) U/L Alkaline Phosphatase (34-104) U/L Troponin I High Sens (0-14) pg/ml Total Protein (6.0-8.3) gm/dl Albumin (3.4-5.0) gm/dl Globulin (2.5-4.0) gm/dl Albumin/Globulin Ratio (0.9-2) Ethyl Alcohol mg/dL < 10.0 (<10.0) mg/dl Imaging Data Attestation: I personally reviewed and interpreted this imaging study as follows: Radiologist's Impression: Chest CTA 11/18/23 22:30 Exam(s): CTA CHEST EXAM: CT Angiography Chest With Intravenous Contrast CLINICAL HISTORY: PE. TECHNIQUE: Axial computed tomographic angiography images of the chest with intravenous contrast. CTDI is 23.48 mGy and DLP is 1345.43 mGy-cm. Automated exposure control was utilized for the study. A dose lowering technique was utilized adhering to the principles of ALARA. MIP reconstructed images were created and reviewed. COMPARISON: CTA chest dated 04/13/2014 FINDINGS: Limitations: There is respiratory artifact, which degrades image quality on multiple image slices. Pulmonary arteries: Accounting for limitations with respiratory artifact, there is no definite evidence for pulmonary embolism. Aorta: Atherosclerotic calcification of the normal caliber aorta. No dissection or aneurysm. Lungs: Progressive fibrotic interstitial changes with honeycombing most noted in the paraseptal lung apices. No focal airspace consolidation. A calcified granulomas noted in the peripheral right upper lobe. Pleural space: Unremarkable. No significant effusion. No pneumothorax. Heart: The cardiac chambers are normal. Coronary artery calcification is of uncertain clinical significance with at least moderate calcification of the LAD. No pericardial effusion. Mediastinum: There is a new hiatal hernia when compared to the previous examination containing the fundus and proximal body of the stomach. The hernia demonstrates only minimal gas and fluid. No perigastric inflammatory changes or evidence for obstruction noted. Bones/joints: No acute fracture. No dislocation. Soft tissues: Unremarkable. Lymph nodes: Incidental calcified lymph nodes in the right hilar region. No lymphadenopathy. IMPRESSION: 1. Accounting for limitations with respiratory artifact, there is no definite evidence for pulmonary embolism. 2. There is a new hiatal hernia when compared to the previous examination containing the fundus and proximal body of the stomach. The hernia demonstrates only minimal gas and fluid. No perigastric inflammatory changes or evidence for obstruction noted. 3. Progressive fibrotic interstitial changes with honeycombing most noted in the paraseptal lung apices. No focal airspace consolidation. No pleural effusion or pneumothorax. Electronically signed by: Romario Baker MD 11/19/23 00:[address] 11/18/23 22:31 CR Exam(s): CT HEAD Without Contrast EXAM: CT Head Without Intravenous Contrast CLINICAL HISTORY: neuro deficit, acute stroke suspected. TECHNIQUE: Axial computed tomography images of the head/brain without intravenous contrast. CTDI is 37.51 mGy and DLP is 546.36 mGy-cm. Automated exposure control was utilized for the study. A dose lowering technique was utilized adhering to the principles of ALARA. COMPARISON: Noncontrast CT head 04/13/2014; MRI 04/14/2014 FINDINGS: Brain: Mild parenchymal involutional changes noted. No intracranial hemorrhage. No significant mass-effect. No evidence for cortical infarct. No significant white matter disease. Ventricles: Unremarkable. No ventriculomegaly. Bones/joints: Unremarkable. No acute fracture. Soft tissues: Unremarkable. Sinuses: The paranasal sinuses are well aerated without mucosal thickening or air-fluid levels. Mastoid air cells: Unremarkable as visualized. No mastoid effusion. IMPRESSION: No acute intracranial process identified. Communications: Call Doctor Stroke Electronically signed by: Romario Baker MD 11/18/23 23:31 PM Head CTA 11/18/23 22:31 CR Exam(s): CTA HEAD With Contrast EXAM: CT Angiography Head With Intravenous Contrast CLINICAL HISTORY: neuro deficit, acute stroke suspected. TECHNIQUE: Axial computed tomographic angiography images of the head with intravenous contrast. CTDI is 37.51 mGy and DLP is 546.36 mGy-cm. Automated exposure control was utilized for the study. A dose lowering technique was utilized adhering to the principles of ALARA. MIP reconstructed images were created and reviewed. COMPARISON: No relevant prior studies available. FINDINGS: Right internal carotid artery: No acute findings. Intracranial segment is patent with no significant stenosis. No aneurysm. Right anterior cerebral artery: Unremarkable. No occlusion or significant stenosis. No aneurysm. Right middle cerebral artery: Unremarkable. No occlusion or significant stenosis. No aneurysm. Right posterior cerebral artery: Unremarkable. No occlusion or significant stenosis. No aneurysm. Right vertebral artery: The distal right vertebral artery is small in caliber but demonstrates no focal narrowing or occlusion. Left internal carotid artery: No acute findings. Intracranial segment is patent with no significant stenosis. No aneurysm. Left anterior cerebral artery: Unremarkable. No occlusion or significant stenosis. No aneurysm. Left middle cerebral artery: Unremarkable. No occlusion or significant stenosis. No aneurysm. Left posterior cerebral artery: Unremarkable. No occlusion or significant stenosis. No aneurysm. Left vertebral artery: The distal left vertebral artery is dominant and is widely patent. Basilar artery: Unremarkable. No occlusion or significant stenosis. No aneurysm. Brain: No abnormal parenchymal enhancement. IMPRESSION: Negative intracranial CTA examination. Communications: Call Doctor Stroke Electronically signed by: Romario Baker MD 11/18/23 23:24 PM Neck CTA 11/18/23 22:31 CR Exam(s): CTA NECK With Contrast EXAM: CT Angiography Neck With Intravenous Contrast CLINICAL HISTORY: neuro deficit, acute stroke suspected. TECHNIQUE: Routine carotid CT angiography protocol was performed with intravenous contrast. NASCET criteria using the distal ICAs for comparison were used for evaluation of stenoses. CTDI is 47.37 mGy and DLP is 23.69 mGy-cm. Automated exposure control was utilized for the study. A dose lowering technique was utilized adhering to the principles of ALARA. MIP reconstructed images were created and reviewed. COMPARISON: None. FINDINGS: VASCULATURE: Right common carotid artery: Eccentric atheromatous changes involving the anterolateral aspect of the mid to distal right common carotid artery without significant narrowing. No dissection. Right internal carotid artery: Atherosclerotic calcification of the proximal right internal carotid artery at the carotid bifurcation without significant narrowing. The mid to distal internal carotid artery is patent. No dissection. Right external carotid artery: Unremarkable. No occlusion. Right vertebral artery: Mild to moderate ostial stenosis. No occlusion or significant stenosis. No dissection. Left common carotid artery: Unremarkable. No occlusion or significant stenosis. No dissection. Left internal carotid artery: Mild intimal hyperplasia involving the mid to distal left internal carotid artery without significant narrowing, dissection or occlusion. Atherosclerotic calcification of the proximal left internal carotid artery without significant narrowing by NASCET criteria. The mid to distal left internal carotid artery is patent. Left external carotid artery: Unremarkable. No occlusion. Left vertebral artery: Mild to moderate ostial stenosis. No occlusion or significant stenosis. No dissection. Other vasculature: Atherosclerotic changes involving the proximal great vessels without occlusion or obvious critical stenosis. Aorta: The aortic arch is predominantly excluded from the field-of- view. NECK: Bones/joints: Unremarkable. No acute fracture. Soft tissues: Unremarkable. Lung apices: Emphysematous changes noted in the lung apices. No focal consolidation. CAROTID STENOSIS REFERENCE USING NASCET CRITERIA: % ICA stenosis = (1 - narrowest ICA diameter/diameter of distal cervical ICA) x 100. Mild - <50% stenosis. Moderate - 50-69% stenosis. Severe - 70-94% stenosis. Near occlusion - 95-99% stenosis. Occluded - 100% stenosis. IMPRESSION: 1. Atherosclerotic changes involving the common and internal carotid arteries bilaterally without significant stenosis or occlusion. 2. Mild to moderate ostial stenosis of both vertebral arteries. The vertebral arteries are otherwise bilaterally. Communications: Call Doctor Stroke Electronically signed by: Romario Baker MD 11/18/23 23:29 PM MDM Narrative Prior records/ancillary studies reviewed regarding the history above. Triage Nursing notes reviewed. Additional history obtained from family The patient's history was concerning for hypertension, headache, numbness, chest pain and dyspnea. Differential diagnosis: Etiologies such as benign hypertension, TIA, CVA, polysubstance abuse, pulmonary, cardiac, hypertensive emergency, cardiovascular pathology, pheochromocytoma, electrolyte abnormality, renal disease, endorgan damage, as well as others were entertained. Physical examination: As above. No signs of end organ damage. ER treatment provided: An order was placed for continuous cardiac monitoring. The monitor shows a rate of 60-100 with a sinus rhythm per my interpretation. IV fluids, Ativan I-STAT was ordered and patient was sent down for CT for rule out stroke On reassessment the patient felt better. Diagnostic interpretation by me: The electrocardiogram was ordered for HTN ECG: Normal sinus, poor baseline, no acute ST-T wave changes, rate of 106. Impression sinus tachycardia independently interpreted by myself The labs Independently Interpreted by myself revealed hyponatremia and osmolarity levels were ordered Stable H&H Negative alcohol Imaging studies: Chest x-ray with no acute consolidation, pneumothorax or free air per my independent interpretation CT is reviewed and read by radiology as above Consultation: A consultation was placed with the hospitalist. The case was discussed and diagnostics were reviewed. The patient was evaluated in the ER for further treatment. This appears to be consistent with symptomatic hyponatremia. Patient does drink a lot of alcohol And she states she also drinks a lot of water. Most likely her new onset hyponatremia is related to this. CT CTAs were negative. Patient was neurovascular neurologically intact. Blood pressure came down on its own. Medicine is consulted and case discussed. Patient admitted to the medical service for further evaluation and workup. By the evaluation outlined above emergent etiologies such as hypertensive emergency, pheochromocytoma, endorgan damage, cardiac ischemia, aortic dissection, pulmonary embolism, pneumonia, pneumothorax, infections, gastrointestinal, as well as others were deemed relatively unlikely. The pt informed about the findings as listed above. All questions were answered and pleased with the treatment. The chart was completed utilizing [employer] Speech voice recognition software. Grammatical errors, random word insertions, pronoun errors, and incomplete sentences are an occassional consequence of this system due to software limitations, ambient noise, and hardware issues. Any formal questions or concerns about the content, text, or information contained within the body of this dictation should be directly addressed to the physician program services assistant for clarification. Impression & Plan Acute hyponatremia, Tingling, Chest pain Discharge Plan Visit Data Chief Complaint: Hypertension Stated Complaint: SOB, HEADACHE, DIZZY, NAUSEA, L ARM NUMB ED Provider: Herrera Boyer ED Midlevel Provider: Georgette Su Discharge Problem: Acute hyponatremia, Tingling, Chest pain Patient Disposition: Admitted As Inpatient Condition: Fair Forms Stand Alone Forms: [facility] Prescriptions Prescriptions: No Action ipratropium-albuterol 0.5 mg-3 mg(2.5 mg base)/3 mL solution for nebulization 3 ml INHALATION Q4 PRN (Reason: wheezing/dyspnea) albuterol sulfate 90 mcg/actuation HFA aerosol inhaler 2 puff INHALATION Q4 PRN (Reason: Shortness Of Breath Or Wheezing) cyclobenzaprine 5 mg tablet 5 mg PO Q8 PRN (Reason: Pain) Incruse Ellipta 62.5 mcg/actuation blister with device 1 inh INHALATION UD lisinopril 10 mg tablet 10 mg PO DAILY Qty: 30 1RF Referrals Referrals: Anupama Huddleston PA-C [Primary Care Provider] -
[2023-11-18] MEDS ORDERED: SODIUM CHLORIDE 0.9% 1,000 ML IV ONE (22:44)
[2023-11-18 22:51] LABS: iSTAT Creatinine 0.9 mg/dl (0.6-1.3); iSTAT Hemoglobin 12.6 g/dl (12.0-16.0); iSTAT Ionized Calcium 1.1 mmol/l (1.12-1.32); iSTAT Potassium 4.2 mmol/L (3.3-5.0)
[2023-11-18 22:58] LABS: Hematocrit (blood only) 34.6 % (37.0-47.0); Hemoglobin 12.3 g/dl (12.0-16.0); Mean Corpuscular Hemoglobin 32.1 pg (25.0-34.0); Mean Corpuscular Hgb Conc 35.5 g/dL (32.0-36.0); Mean Corpuscular Volume 90.3 fL (80.0-100.0); Mean Platelet Volume 8.3 fL (9.4-12.4); Platelet Count 265 K/uL (130-400); RDW Coefficient of Variation 13.4 % (11.5-14.5); RDW Standard Deviation 44.1 fL (36.4-46.3); Red Blood Count 3.83 M/uL (4.20-5.40); White Blood Count 11.13 K/ul (4.8-10.8)
[2023-11-18] MEDS ORDERED: OPTIRAY 320 125ml IV ONE (23:05)
[2023-11-18 23:17] LABS: Albumin Globulin Ratio 1.4 (0.9-2); Albumin Level 4.3 gm/dl (3.4-5.0); BUN Creatinine Ratio 13.6 (10-20); Bilirubin,Total 0.3 mg/dl (0.2-1.0); Calcium 8.7 mg/dl (8.6-10.3); Creatinine Clr Calc Pharmacy 84.1 ml/min; Est GFR (African American) 92.8 ml/min; Est GFR (Non-African American) 80.1 ml/min; Magnesium 1.8 mg/dl (1.7-2.4); Potassium 4.1 mmol/L (3.5-5.1); Total Protein 7.3 gm/dl (6.0-8.3)
[2023-11-18 23:24] LABS: Troponin I High Sensitivity 5.8 pg/ml (0-14)
--- NOTE | 2023-11-18 23:25 | CT Scan Report ---
Exam(s): CTA HEAD With Contrast EXAM: CT Angiography Head With Intravenous Contrast CLINICAL HISTORY: neuro deficit, acute stroke suspected. TECHNIQUE: Axial computed tomographic angiography images of the head with intravenous contrast. CTDI is 37.51 mGy and DLP is 546.36 mGy-cm. Automated exposure control was utilized for the study. A dose lowering technique was utilized adhering to the principles of ALARA. MIP reconstructed images were created and reviewed. COMPARISON: No relevant prior studies available. FINDINGS: Right internal carotid artery: No acute findings. Intracranial segment is patent with no significant stenosis. No aneurysm. Right anterior cerebral artery: Unremarkable. No occlusion or significant stenosis. No aneurysm. Right middle cerebral artery: Unremarkable. No occlusion or significant stenosis. No aneurysm. Right posterior cerebral artery: Unremarkable. No occlusion or significant stenosis. No aneurysm. Right vertebral artery: The distal right vertebral artery is small in caliber but demonstrates no focal narrowing or occlusion. Left internal carotid artery: No acute findings. Intracranial segment is patent with no significant stenosis. No aneurysm. Left anterior cerebral artery: Unremarkable. No occlusion or significant stenosis. No aneurysm. Left middle cerebral artery: Unremarkable. No occlusion or significant stenosis. No aneurysm. Left posterior cerebral artery: Unremarkable. No occlusion or significant stenosis. No aneurysm. Left vertebral artery: The distal left vertebral artery is dominant and is widely patent. Basilar artery: Unremarkable. No occlusion or significant stenosis. No aneurysm. Brain: No abnormal parenchymal enhancement. IMPRESSION: Negative intracranial CTA examination. Communications: Call Doctor Stroke Electronically signed by: Romario Baker MD 11/18/23 23:24 PM
--- NOTE | 2023-11-18 23:30 | CT Scan Report ---
Exam(s): CTA NECK With Contrast EXAM: CT Angiography Neck With Intravenous Contrast CLINICAL HISTORY: neuro deficit, acute stroke suspected. TECHNIQUE: Routine carotid CT angiography protocol was performed with intravenous contrast. NASCET criteria using the distal ICAs for comparison were used for evaluation of stenoses. CTDI is 47.37 mGy and DLP is 23.69 mGy-cm. Automated exposure control was utilized for the study. A dose lowering technique was utilized adhering to the principles of ALARA. MIP reconstructed images were created and reviewed. COMPARISON: None. FINDINGS: VASCULATURE: Right common carotid artery: Eccentric atheromatous changes involving the anterolateral aspect of the mid to distal right common carotid artery without significant narrowing. No dissection. Right internal carotid artery: Atherosclerotic calcification of the proximal right internal carotid artery at the carotid bifurcation without significant narrowing. The mid to distal internal carotid artery is patent. No dissection. Right external carotid artery: Unremarkable. No occlusion. Right vertebral artery: Mild to moderate ostial stenosis. No occlusion or significant stenosis. No dissection. Left common carotid artery: Unremarkable. No occlusion or significant stenosis. No dissection. Left internal carotid artery: Mild intimal hyperplasia involving the mid to distal left internal carotid artery without significant narrowing, dissection or occlusion. Atherosclerotic calcification of the proximal left internal carotid artery without significant narrowing by NASCET criteria. The mid to distal left internal carotid artery is patent. Left external carotid artery: Unremarkable. No occlusion. Left vertebral artery: Mild to moderate ostial stenosis. No occlusion or significant stenosis. No dissection. Other vasculature: Atherosclerotic changes involving the proximal great vessels without occlusion or obvious critical stenosis. Aorta: The aortic arch is predominantly excluded from the field-of- view. NECK: Bones/joints: Unremarkable. No acute fracture. Soft tissues: Unremarkable. Lung apices: Emphysematous changes noted in the lung apices. No focal consolidation. CAROTID STENOSIS REFERENCE USING NASCET CRITERIA: % ICA stenosis = (1 - narrowest ICA diameter/diameter of distal cervical ICA) x 100. Mild - <50% stenosis. Moderate - 50-69% stenosis. Severe - 70-94% stenosis. Near occlusion - 95-99% stenosis. Occluded - 100% stenosis. IMPRESSION: 1. Atherosclerotic changes involving the common and internal carotid arteries bilaterally without significant stenosis or occlusion. 2. Mild to moderate ostial stenosis of both vertebral arteries. The vertebral arteries are otherwise bilaterally. Communications: Call Doctor Stroke Electronically signed by: Romario Baker MD 11/18/23 23:29 PM
--- NOTE | 2023-11-18 23:32 | CT Scan Report ---
Exam(s): CT HEAD Without Contrast EXAM: CT Head Without Intravenous Contrast CLINICAL HISTORY: neuro deficit, acute stroke suspected. TECHNIQUE: Axial computed tomography images of the head/brain without intravenous contrast. CTDI is 37.51 mGy and DLP is 546.36 mGy-cm. Automated exposure control was utilized for the study. A dose lowering technique was utilized adhering to the principles of ALARA. COMPARISON: Noncontrast CT head 04/13/2014; MRI 04/14/2014 FINDINGS: Brain: Mild parenchymal involutional changes noted. No intracranial hemorrhage. No significant mass-effect. No evidence for cortical infarct. No significant white matter disease. Ventricles: Unremarkable. No ventriculomegaly. Bones/joints: Unremarkable. No acute fracture. Soft tissues: Unremarkable. Sinuses: The paranasal sinuses are well aerated without mucosal thickening or air-fluid levels. Mastoid air cells: Unremarkable as visualized. No mastoid effusion. IMPRESSION: No acute intracranial process identified. Communications: Call Doctor Stroke Electronically signed by: Romario Baker MD 11/18/23 23:31 PM
[2023-11-18 23:37] LABS: INR 0.9 (0.9-1.1); Partial Thromboplastin Time 29 Seconds (21-31); Prothrombin Time 10.3 Seconds (9.0-12.0)
[2023-11-18 23:53] LABS: ANC (manual) 3.34 K/uL (1.4-6.5); Basophils # (manual) 0.11 K/uL (0-0.2); Basophils % (manual) 1 %; Eosinophils # (manual) 0.33 K/uL (0-0.50); Eosinophils % (manual) 3 %; Large Granular Lymph # (manua 1.78 K/uL; Large Granular Lymph % (manual) 16 %; Lymphocytes # (manual) 5.12 K/uL (1.2-3.4); Lymphocytes % (manual) 46 %; Monocytes # (manual) 0.45 K/uL (0.11-0.59); Monocytes % (manual) 4 %; Neutrophils # (manual) 3.34 K/uL (1.40-6.50); Neutrophils % (manual) 30 %; Rouleaux 1+
--- NOTE | 2023-11-19 00:10 | CT Scan Report ---
Exam(s): CTA CHEST EXAM: CT Angiography Chest With Intravenous Contrast CLINICAL HISTORY: PE. TECHNIQUE: Axial computed tomographic angiography images of the chest with intravenous contrast. CTDI is 23.48 mGy and DLP is 1345.43 mGy-cm. Automated exposure control was utilized for the study. A dose lowering technique was utilized adhering to the principles of ALARA. MIP reconstructed images were created and reviewed. COMPARISON: CTA chest dated 04/13/2014 FINDINGS: Limitations: There is respiratory artifact, which degrades image quality on multiple image slices. Pulmonary arteries: Accounting for limitations with respiratory artifact, there is no definite evidence for pulmonary embolism. Aorta: Atherosclerotic calcification of the normal caliber aorta. No dissection or aneurysm. Lungs: Progressive fibrotic interstitial changes with honeycombing most noted in the paraseptal lung apices. No focal airspace consolidation. A calcified granulomas noted in the peripheral right upper lobe. Pleural space: Unremarkable. No significant effusion. No pneumothorax. Heart: The cardiac chambers are normal. Coronary artery calcification is of uncertain clinical significance with at least moderate calcification of the LAD. No pericardial effusion. Mediastinum: There is a new hiatal hernia when compared to the previous examination containing the fundus and proximal body of the stomach. The hernia demonstrates only minimal gas and fluid. No perigastric inflammatory changes or evidence for obstruction noted. Bones/joints: No acute fracture. No dislocation. Soft tissues: Unremarkable. Lymph nodes: Incidental calcified lymph nodes in the right hilar region. No lymphadenopathy. IMPRESSION: 1. Accounting for limitations with respiratory artifact, there is no definite evidence for pulmonary embolism. 2. There is a new hiatal hernia when compared to the previous examination containing the fundus and proximal body of the stomach. The hernia demonstrates only minimal gas and fluid. No perigastric inflammatory changes or evidence for obstruction noted. 3. Progressive fibrotic interstitial changes with honeycombing most noted in the paraseptal lung apices. No focal airspace consolidation. No pleural effusion or pneumothorax. Electronically signed by: Romario Baker MD 11/19/23 00:09 AM
[2023-11-19 00:27] LABS: Appearance Urine Clear (Clear); Bilirubin Urine Negative (Negative); Blood Urine Negative (Negative); Color Urine Yellow; Glucose Urine UA Negative (Negative); Ketones Urine Negative (Negative); Leukocyte Esterase Urine Trace (Negative); Nitrite Urine Negative (Negative); Protein Urine Negative (Negative); Specific Gravity Urine <= 1.005 (1.000-1.030); Urobilinogen Urine Negative (Negative)
[2023-11-19 00:43] LABS: Bacteria Urine Negative (Negative); RBC Urine 0-4 /hpf (0-4); WBC Urine 0-5 /hpf (0-5)
[2023-11-19] MEDS ORDERED: MAGNESIUM SULFATE / D5W 1 GM/100 ML BAG IV ONE (00:45)
[2023-11-19] MEDS ORDERED: THIAMINE HCL 100 MG in SYRINGE 9 ML IV STA (00:46)
[2023-11-19 01:13] LABS: Thyroid Stimulating Hormone 4.925 uIu/ml (0.300-4.500)
--- NOTE | 2023-11-19 01:31 | History & Physical Report ---
Date of Service November 19, 2023 Assessment & Plan (1) TIA (transient ischemic attack): Plan: Recurrent TIA Possible aspirin failure hypertension, elevated secondary to above Alcohol withdrawal contributory Acute on chronic hyponatremia Patient hyponatremic in the 120s since last year on review on outpatient blood work EtOH abuse, water intake contributory Carotid artery disease/vertebral artery disease on neck imaging hyperlipidemia, not on statin Rx COPD/ILD as per records, chronic wheezing symptoms as per patient Lung nodules, stable size as of recent outpatient CT chest last month hx GERD chronic lymphocytosis, 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, patient [place] [facility] [place] ongoing tobacco abuse Medical telemetry Neurochecks Plavix in addition to aspirin for stroke prophylaxis in the setting of possible aspirin failure for now Initiate statin as well in light of PVD Permissive hypertension, hold home lisinopril for now MRI brain, TTE, lipid profile update for additional stroke workup Neurology consult Re: Recurrent TIA Careful correction of sodium Recheck sodium after initial fluid bolus given at the ER Hyponatremia workup Fluid restriction Nephrology consult Re: Acute on chronic hyponatremia CHRISTOFER S, DT precautions Nicotine patch DVT phylaxis. Lovenox subcu Full code Text document was generated using [employer] voice recognition software. It may contain grammatical or spelling errors. Kindly contact undersigned for clarification of any documentation item in question. History of Present Illness Chief Complaint: Headache, left arm sleepy Primary Care Provider: Anupama Huddleston PA-C History obtained from patient and records. Medical history significant for hypertension, hyperlipidemia, TIA, COPD/ILD/lung nodules as per records as per records, GERD, chronic lymphocytosis as per records, mood disorder, ongoing tobacco/alcohol abuse. Last confinement 2013 for TIA and alcoholic intoxication. Patient presented with transient numbness/tingling sensation/mild weakness on the left side. Brain MRI negative for stroke. Patient discharged on aspirin. Statin not started due to alcoholic hepatitis as per documentation. No outpatient neurology follow-up. Patient woke up not feeling well yesterday. Later experienced generalized headache symptoms associated with lightheadedness and sleepy left upper extremity sensation. Patient would not call it weakness or numbness. Patient takes home aspirin every other day. No chest pain or unusual shortness of breath. No neck pain. Patient admits to consumption of more than 2 L of water daily for some time now. Last EtOH intake was last night. SBP 200s upon arrival at the ER. Abnormal left upper extremity sensation currently improving as per patient. IV Ativan administered at the ER for possible alcohol withdrawal. 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 Allergies Allergy/AdvReac Type Severity Reaction Status Date / Time amoxicillin Allergy Severe ANAPHYLAXIS Verified 07/17/22 15:04 fexofenadine Allergy Severe ANAPHYLAXIS Verified 07/17/22 15:04 Penicillins Allergy Severe ANAPHYLAXIS Verified 07/17/22 15:04 fluoxetine Allergy Unknown PT "CAN'T Verified 07/17/22 15:04 REMEMBER" Home Medications Medication Instructions Recorded Confirmed Type albuterol sulfate 90 mcg/actuation 2 puff inhalation Q4 PRN Shortness 07/17/22 11/19/23 History aerosol inhaler Of Breath Or Wheezing ipratropium 0.5 mg-albuterol 3 mg 3 ml inhalation Q4 PRN 07/17/22 11/19/23 History (2.5 mg base)/3 mL nebulization wheezing/dyspnea soln lisinopril 10 mg tablet 10 mg PO DAILY #30 tabs 07/17/22 11/19/23 Rx Aspir-81 81 mg PO Q2D 11/19/23 11/19/23 History doxepin 25 mg capsule 25 mg PO DIRECTED 11/19/23 11/19/23 History Past Med/Surg History Medical History Hypertension Alcohol abuse Social History Smoking Status: Current every day smoker Tobacco Type: Cigarettes Hx Alcohol Use: Yes Alcohol type: beer Hx Substance Use: No Preferred Language: [place] Islander Communication Ability: Effective Gold Marker Required: No Beliefs That Will Affect Care: None Current Living Situation: Spouse and Family Feels Safe at Home: Yes Safety Concerns: Feels Safe At This Time Assistive Devices: None Review of Systems Review of Systems: As per HPI, all other systems reviewed and negative Physical Exam Physical Exam: GENERAL: Comfortable, tremulous, no respiratory distress SKIN: Normal color, warm HEENT: [place] palpebral conjunctivae, no ptosis, dry buccal mucosa NECK : Supple, no tenderness CHEST : Decreased breath sounds, occasional expiratory wheezes, no tenderness HEART : RRR, no obvious murmurs ABDOMEN: Some distention, nontender EXTREMITIES : No LE swelling/tenderness, no other conspicuous deformities noted NEUROLOGIC : Coherent, no facial asymmetry, MMTS BUE/BLE 5/5, negative pronator drift, no other gross focality Results & Data Results & Data Vital Signs (Past 12 Hours) Vital Signs Temp Pulse Pulse Resp BP BP Pulse Ox 11/19/23 00:53 93 H 18 155/76 H 97 11/19/23 00:00 102 H 18 172/88 H 97 11/18/23 22:43 99 H 18 157/86 H 97 11/18/23 22:42 99 H 11/18/23 22:40 103 H 18 200/105 H 100 11/18/23 22:22 36.4 C L 100 H 18 205/104 H 97 O2 Del Method 11/19/23 00:53 Room Air 11/19/23 00:00 Room Air 11/18/23 22:43 Room Air 11/18/23 22:42 11/18/23 22:40 Room Air 11/18/23 22:22 Room Air Laboratory Results Laboratory Results WBC 11.13 K/ul (4.8-10.8) H 11/18/23 22:35 RBC 3.83 M/uL (4.20-5.40) L 11/18/23 22:35 Hgb 12.3 g/dl (12.0-16.0) 11/18/23 22:35 POC Hgb 12.6 g/dl (12.0-16.0) 11/18/23 22:39 Hct 34.6 % (37.0-47.0) L 11/18/23 22:35 POC Hct 37 % (37-47) 11/18/23 22:39 MCV 90.3 fL (80.0-100.0) 11/18/23 22:35 MCH 32.1 pg (25.0-34.0) 11/18/23 22:35 MCHC 35.5 g/dL (32.0-36.0) 11/18/23 22:35 RDW Std Deviation 44.1 fL (36.4-46.3) 11/18/23 22:35 RDW Coeff of Ever 13.4 % (11.5-14.5) 11/18/23 22:35 Plt Count 265 K/uL (130-400) 11/18/23 22:35 MPV 8.3 fL (9.4-12.4) L 11/18/23 22:35 Neutrophils % (Manual) 30 % 11/18/23 22:35 Lymphocytes % (Manual) 46 % 11/18/23 22:35 Monocytes % (Manual) 4 % 11/18/23 22:35 Eosinophils % (Manual) 3 % 11/18/23 22:35 Basophils % (Manual) 1 % 11/18/23 22:35 Neutrophils # (Manual) 3.34 K/uL (1.40-6.50) 11/18/23 22:35 Total Absolute Neuts 3.34 K/uL (1.4-6.5) 11/18/23 22:35 Lymphocytes # (Manual) 5.12 K/uL (1.2-3.4) H 11/18/23 22:35 Total Abs Lymphocytes 6.90 K/uL (1.2-3.4) H 11/18/23 22:35 Monocytes # (Manual) 0.45 K/uL (0.11-0.59) 11/18/23 22:35 Eosinophils # (Manual) 0.33 K/uL (0-0.50) 11/18/23 22:35 Basophils # (Manual) 0.11 K/uL (0-0.2) 11/18/23 22:35 Large Granular Lymphs 16 % 11/18/23 22:35 # Lrg Granular Lymphs 1.78 K/uL 11/18/23 22:35 Rouleaux 1+ 11/18/23 22:35 PT 10.3 Seconds (9.0-12.0) 11/18/23 22:35 INR 0.9 (0.9-1.1) 11/18/23 22:35 APTT 29 Seconds (21-31) 11/18/23 22:35 PTT Ratio 1.0 11/18/23 22:35 POC Sodium 120 mmol/L (135-144) L 11/18/23 22:39 Sodium 120 mmol/L (136-145) L 11/18/23 22:35 POC Potassium 4.2 mmol/L (3.3-5.0) 11/18/23 22:39 Potassium 4.1 mmol/L (3.5-5.1) 11/18/23 22:35 POC Chloride 88 mmol/L (101-112) L 11/18/23 22:39 Chloride 89 mmol/L (98-107) L 11/18/23 22:35 Carbon Dioxide 21 mmol/L (21-32) 11/18/23 22:35 POC Total CO2 22 mmol/L (24-31) L 11/18/23 22:39 Anion Gap 10 (3-11) 11/18/23 22:35 POC Anion Gap 15.0 mmol/L (16-25) L 11/18/23 22:39 POC BUN 10 mg/dl (7-18) 11/18/23 22:39 BUN 11 mg/dl (6-23) 11/18/23 22:35 Creatinine 0.81 mg/dl (0.6-1.2) 11/18/23 22:35 POC Creatinine 0.9 mg/dl (0.6-1.3) 11/18/23 22:39 Est Cr Clr Drug Dosing 84.1 ml/min 11/18/23 22:35 Est GFR ( Amer) 92.8 ml/min 11/18/23 22:35 Est GFR (Non-Af Amer) 80.1 ml/min 11/18/23 22:35 BUN/Creatinine Ratio 13.6 (10-20) 11/18/23 22:35 Glucose 96 mg/dl (70-99(Fasting)) 11/18/23 22:35 POC Glucose 104 mg/dl (70-99) H 11/18/23 22:40 POC Glucose (other) 97 mg/dl (70-99) 11/18/23 22:39 Osmolality 255 mOsm/kg (280-300) L 11/18/23 22:35 Calcium 8.7 mg/dl (8.6-10.3) 11/18/23 22:35 POC Ioniz Calcium [place] 1.10 mmol/l (1.12-1.32) L 11/18/23 22:39 Magnesium 1.8 mg/dl (1.7-2.4) 11/18/23 22:35 Total Bilirubin 0.3 mg/dl (0.2-1.0) 11/18/23 22:35 AST 24 U/L (13-39) 11/18/23 22:35 ALT 8 U/L (7-52) 11/18/23 22:35 Alkaline Phosphatase 74 U/L (34-104) 11/18/23 22:35 Troponin I High Sens 5.8 pg/ml (0-14) 11/18/23 22:35 Total Protein 7.3 gm/dl (6.0-8.3) 11/18/23 22:35 Albumin 4.3 gm/dl (3.4-5.0) 11/18/23 22:35 Globulin 3.0 gm/dl (2.5-4.0) 11/18/23 22:35 Albumin/Globulin Ratio 1.4 (0.9-2) 11/18/23 22:35 TSH 4.925 uIu/ml (0.300-4.500) H 11/18/23 22:35 Urine Color Yellow 11/18/23 Unknown Urine Appearance Clear (Clear) 11/18/23 Unknown Urine pH 6.0 (4.5-7.5) 11/18/23 Unknown Ur Specific [place] <= 1.005 (1.000-1.030) 11/18/23 Unknown Urine Protein Negative (Negative) 11/18/23 Unknown Urine Glucose (UA) Negative (Negative) 11/18/23 Unknown Urine Ketones Negative (Negative) 11/18/23 Unknown Urine Blood Negative (Negative) 11/18/23 Unknown Urine Nitrite Negative (Negative) 11/18/23 Unknown Urine Bilirubin Negative (Negative) 11/18/23 Unknown Urine Urobilinogen Negative (Negative) 11/18/23 Unknown Ur Leukocyte Esterase Trace (Negative) H 11/18/23 Unknown Urine RBC 0-4 /hpf (0-4) 11/18/23 Unknown Urine WBC 0-5 /hpf (0-5) 11/18/23 Unknown Ur Epithelial Cells 5-10 /lpf (0-5) H 11/18/23 Unknown Urine Bacteria Negative (Negative) 11/18/23 Unknown Urine Osmolality 177 mOsm/kg (500-800) L 11/18/23 Unknown Ur Random Sodium 18 mmol/L 11/19/23 Unknown Ethyl Alcohol mg/dL < 10.0 mg/dl (<10.0) 11/18/23 23:15 Impressions Chest CTA 11/18/23 22:30 Exam(s): CTA CHEST EXAM: CT Angiography Chest With Intravenous Contrast CLINICAL HISTORY: PE. TECHNIQUE: Axial computed tomographic angiography images of the chest with intravenous contrast. CTDI is 23.48 mGy and DLP is 1345.43 mGy-cm. Automated exposure control was utilized for the study. A dose lowering technique was utilized adhering to the principles of ALARA. MIP reconstructed images were created and reviewed. COMPARISON: CTA chest dated 04/13/2014 FINDINGS: Limitations: There is respiratory artifact, which degrades image quality on multiple image slices. Pulmonary arteries: Accounting for limitations with respiratory artifact, there is no definite evidence for pulmonary embolism. Aorta: Atherosclerotic calcification of the normal caliber aorta. No dissection or aneurysm. Lungs: Progressive fibrotic interstitial changes with honeycombing most noted in the paraseptal lung apices. No focal airspace consolidation. A calcified granulomas noted in the peripheral right upper lobe. Pleural space: Unremarkable. No significant effusion. No pneumothorax. Heart: The cardiac chambers are normal. Coronary artery calcification is of uncertain clinical significance with at least moderate calcification of the LAD. No pericardial effusion. Mediastinum: There is a new hiatal hernia when compared to the previous examination containing the fundus and proximal body of the stomach. The hernia demonstrates only minimal gas and fluid. No perigastric inflammatory changes or evidence for obstruction noted. Bones/joints: No acute fracture. No dislocation. Soft tissues: Unremarkable. Lymph nodes: Incidental calcified lymph nodes in the right hilar region. No lymphadenopathy. IMPRESSION: 1. Accounting for limitations with respiratory artifact, there is no definite evidence for pulmonary embolism. 2. There is a new hiatal hernia when compared to the previous examination containing the fundus and proximal body of the stomach. The hernia demonstrates only minimal gas and fluid. No perigastric inflammatory changes or evidence for obstruction noted. 3. Progressive fibrotic interstitial changes with honeycombing most noted in the paraseptal lung apices. No focal airspace consolidation. No pleural effusion or pneumothorax. Electronically signed by: Romario Baker MD 11/19/23 00:[address] 11/18/23 22:31 CR Exam(s): CT HEAD Without Contrast EXAM: CT Head Without Intravenous Contrast CLINICAL HISTORY: neuro deficit, acute stroke suspected. TECHNIQUE: Axial computed tomography images of the head/brain without intravenous contrast. CTDI is 37.51 mGy and DLP is 546.36 mGy-cm. Automated exposure control was utilized for the study. A dose lowering technique was utilized adhering to the principles of ALARA. COMPARISON: Noncontrast CT head 04/13/2014; MRI 04/14/2014 FINDINGS: Brain: Mild parenchymal involutional changes noted. No intracranial hemorrhage. No significant mass-effect. No evidence for cortical infarct. No significant white matter disease. Ventricles: Unremarkable. No ventriculomegaly. Bones/joints: Unremarkable. No acute fracture. Soft tissues: Unremarkable. Sinuses: The paranasal sinuses are well aerated without mucosal thickening or air-fluid levels. Mastoid air cells: Unremarkable as visualized. No mastoid effusion. IMPRESSION: No acute intracranial process identified. Communications: Call Doctor Stroke Electronically signed by: Romario Baker MD 11/18/23 23:31 PM Head CTA 11/18/23 22:31 CR Exam(s): CTA HEAD With Contrast EXAM: CT Angiography Head With Intravenous Contrast CLINICAL HISTORY: neuro deficit, acute stroke suspected. TECHNIQUE: Axial computed tomographic angiography images of the head with intravenous contrast. CTDI is 37.51 mGy and DLP is 546.36 mGy-cm. Automated exposure control was utilized for the study. A dose lowering technique was utilized adhering to the principles of ALARA. MIP reconstructed images were created and reviewed. COMPARISON: No relevant prior studies available. FINDINGS: Right internal carotid artery: No acute findings. Intracranial segment is patent with no significant stenosis. No aneurysm. Right anterior cerebral artery: Unremarkable. No occlusion or significant stenosis. No aneurysm. Right middle cerebral artery: Unremarkable. No occlusion or significant stenosis. No aneurysm. Right posterior cerebral artery: Unremarkable. No occlusion or significant stenosis. No aneurysm. Right vertebral artery: The distal right vertebral artery is small in caliber but demonstrates no focal narrowing or occlusion. Left internal carotid artery: No acute findings. Intracranial segment is patent with no significant stenosis. No aneurysm. Left anterior cerebral artery: Unremarkable. No occlusion or significant stenosis. No aneurysm. Left middle cerebral artery: Unremarkable. No occlusion or significant stenosis. No aneurysm. Left posterior cerebral artery: Unremarkable. No occlusion or significant stenosis. No aneurysm. Left vertebral artery: The distal left vertebral artery is dominant and is widely patent. Basilar artery: Unremarkable. No occlusion or significant stenosis. No aneurysm. Brain: No abnormal parenchymal enhancement. IMPRESSION: Negative intracranial CTA examination. Communications: Call Doctor Stroke Electronically signed by: Romario Baker MD 11/18/23 23:24 PM Neck CTA 11/18/23 22:31 CR Exam(s): CTA NECK With Contrast EXAM: CT Angiography Neck With Intravenous Contrast CLINICAL HISTORY: neuro deficit, acute stroke suspected. TECHNIQUE: Routine carotid CT angiography protocol was performed with intravenous contrast. NASCET criteria using the distal ICAs for comparison were used for evaluation of stenoses. CTDI is 47.37 mGy and DLP is 23.69 mGy-cm. Automated exposure control was utilized for the study. A dose lowering technique was utilized adhering to the principles of ALARA. MIP reconstructed images were created and reviewed. COMPARISON: None. FINDINGS: VASCULATURE: Right common carotid artery: Eccentric atheromatous changes involving the anterolateral aspect of the mid to distal right common carotid artery without significant narrowing. No dissection. Right internal carotid artery: Atherosclerotic calcification of the proximal right internal carotid artery at the carotid bifurcation without significant narrowing. The mid to distal internal carotid artery is patent. No dissection. Right external carotid artery: Unremarkable. No occlusion. Right vertebral artery: Mild to moderate ostial stenosis. No occlusion or significant stenosis. No dissection. Left common carotid artery: Unremarkable. No occlusion or significant stenosis. No dissection. Left internal carotid artery: Mild intimal hyperplasia involving the mid to distal left internal carotid artery without significant narrowing, dissection or occlusion. Atherosclerotic calcification of the proximal left internal carotid artery without significant narrowing by NASCET criteria. The mid to distal left internal carotid artery is patent. Left external carotid artery: Unremarkable. No occlusion. Left vertebral artery: Mild to moderate ostial stenosis. No occlusion or significant stenosis. No dissection. Other vasculature: Atherosclerotic changes involving the proximal great vessels without occlusion or obvious critical stenosis. Aorta: The aortic arch is predominantly excluded from the field-of- view. NECK: Bones/joints: Unremarkable. No acute fracture. Soft tissues: Unremarkable. Lung apices: Emphysematous changes noted in the lung apices. No focal consolidation. CAROTID STENOSIS REFERENCE USING NASCET CRITERIA: % ICA stenosis = (1 - narrowest ICA diameter/diameter of distal cervical ICA) x 100. Mild - <50% stenosis. Moderate - 50-69% stenosis. Severe - 70-94% stenosis. Near occlusion - 95-99% stenosis. Occluded - 100% stenosis. IMPRESSION: 1. Atherosclerotic changes involving the common and internal carotid arteries bilaterally without significant stenosis or occlusion. 2. Mild to moderate ostial stenosis of both vertebral arteries. The vertebral arteries are otherwise bilaterally. Communications: Call Doctor Stroke Electronically signed by: Romario Baker MD 11/18/23 23:29 PM Diagnostic Findings EKG as per my interpretation : rate 110, sinus tachycardia, normal axis, T wave abnormality septal leads
[2023-11-19] MEDS ORDERED: LORazepam 1 MG in SYRINGE 0.5 ML IV PRN (01:37)
[2023-11-19] MEDS ORDERED: LORazepam 2 MG in SYRINGE 1 ML IV PRN (01:37)
[2023-11-19] MEDS ORDERED: LORazepam 3 MG in SYRINGE 1.5 ML IV PRN (01:37)
[2023-11-19] MEDS ORDERED: Ativan IV Alcohol Withdrawal--Active Protocol IV PRN (01:37)
[2023-11-19] MEDS ORDERED: diphenhydrAMINE Capsule 25 MG CAP PO PRN ×2 (01:38→20:52)
[2023-11-19] MEDS ORDERED: CLOPIDOGREL BISULFATE 300 MG TAB PO STA (01:43)
[2023-11-19] MEDS ORDERED: DOXEPIN HCL 10 MG CAPSULE PO STA (01:43)
[2023-11-19] MEDS ORDERED: diphenhydrAMINE Capsule 25 MG CAP PO ONE ×2 (01:45→20:50)
[2023-11-19 01:53] LABS: T4 Free Thyroxine 0.87 ng/dl (0.61-1.60)
[2023-11-19] MEDS ORDERED: oxyCODONE HCL IR 5 MG TAB (IMMEDIATE RELEASE) PO PRN (01:59)
[2023-11-19] MEDS ORDERED: PROMETHAZINE HCL 12.5 MG in SODIUM CHLORIDE 0.9% 50 ML IV PRN (01:59)
[2023-11-19] MEDS ORDERED: PHARMACIST DISCHARGE MED REC CONSULT PRN ×2 (02:24→06:00)
[2023-11-19 04:37] LABS: Basophils # (auto) 0.06 K/uL (0.00-0.20); Basophils % (auto) 0.8 %; Eosinophils # (auto) 0.33 K/uL (0.00-0.50); Eosinophils % (auto) 4.5 %; Hematocrit (blood only) 33.1 % (37.0-47.0); Immature Granulocytes # (auto) 0.01 K/uL (0.01-0.20); Immature Granulocytes % (auto) 0.1 %; Lymphocytes # (auto) 3.59 K/uL (1.20-3.40); Lymphocytes % (auto) 48.6 %; Mean Corpuscular Hemoglobin 32.3 pg (25.0-34.0); Mean Corpuscular Hgb Conc 36.3 g/dL (32.0-36.0); Mean Platelet Volume 8.2 fL (9.4-12.4); Monocytes # (auto) 0.47 K/uL (0.11-0.59); Monocytes % (auto) 6.4 %; Neutrophils # (auto) 2.92 K/uL (1.40-6.50); Neutrophils % (auto) 39.6 %; Platelet Count 246 K/uL (130-400); RDW Coefficient of Variation 13.3 % (11.5-14.5); RDW Standard Deviation 43.9 fL (36.4-46.3); Red Blood Count 3.72 M/uL (4.20-5.40); White Blood Count 7.38 K/ul (4.8-10.8)
[2023-11-19 04:53] LABS: BUN Creatinine Ratio 15.3 (10-20); Calcium 8.7 mg/dl (8.6-10.3); Chol HDL Ratio 2.2 (0-5); Creatinine Clr Calc Pharmacy 115.4 ml/min; Est GFR (African American) 117.1 ml/min; Potassium 4.3 mmol/L (3.5-5.1)
[2023-11-19] MEDS ORDERED: ALBUMIN 25% 25 GM/100 ML VIAL IV ONE (06:00)
[2023-11-19] MEDS ORDERED: DEXTROSE 5% 1,000 ML IV ONE (06:52)
[2023-11-19] MEDS ORDERED: GABAPENTIN 600 MG TAB PO ONE (07:20)
[2023-11-19] MEDS ORDERED: GABAPENTIN 1200MG ALCOHOL WITHDRAWAL LOAD PO STA (07:20)
[2023-11-19] MEDS ORDERED: ALPRAZolam 0.5 MG TABLET PO STA (07:44)
[2023-11-19] MEDS: MULTIVITAMIN TAB PO SCH (08:25)
[2023-11-19] MEDS: ASPIRIN 81 MG ECTAB PO SCH (08:25)
[2023-11-19] MEDS: FOLIC ACID 1 MG TAB PO SCH (08:25)
[2023-11-19] MEDS: ENOXAPARIN INJ 40 MG/0.4 ML SYR SQ SCH (08:26)
[2023-11-19] MEDS: ALPRAZolam 0.5 MG TABLET ONE ×2 (08:57→09:08)
[2023-11-19] MEDS: ATORVASTATIN 40 MG TAB PO SCH (09:00)
--- NOTE | 2023-11-19 09:26 | Magnetic Resonance Report ---
MR brain wo con CLINICAL HISTORY: tia TECHNIQUE: Multiplanar and multisequence MR images of the brain were obtained without intravenous con trast. Comparison: Comparison is made to MRI brain 04/14/[address] head 11/18/2023 FINDINGS: Exam is limited by patient motion. No abnormal restricted diffusion is identified. Foci of T2 and FLAIR hyperintensity are noted in the paraventricular areas consistent with chronic small vessel ischemic disease. The ventricular system i s normal in appearance. No mass is seen. There is no mass effect or midline shift. There is no eviden ce of acute intraparenchymal hemorrhage. No extra axial fluid collections are seen. The corpus callos um, pituitary gland, and cerebellar tonsils appear grossly unremarkable. Flow voids of the major intracranial arterial vessels are identified. The imaged portions of the para nasal sinuses, mastoid air cells, and orbits are unremarkable. IMPRESSION: Chronic volume loss and age related white matter changes without evidence of acute abnormality. ACT 112: Negative or not required by law. Electronically signed by: Vu Maldonado M.D. 11/19/2023 9:24 AM
--- NOTE | 2023-11-19 09:27 | XRay Report ---
XR chest 1V portable CLINICAL HISTORY: neuro deficit, acute stroke suspected TECHNIQUE: Single frontal radiograph of the chest was obtained. Comparison: Comparison is made to chest radiograph 07/17/2022 FINDINGS: No lines and tubes are seen. The cardiomediastinal silhouette is normal. Reticular interstitial opaci ties are seen. No evidence of pleural effusion or pneumothorax. IMPRESSION: No acute chest disease. ACT 112: Negative or not required by law. Electronically signed by: Vu Maldonado M.D. 11/19/2023 9:26 AM
--- NOTE | 2023-11-19 10:04 | Electrocardiogram Report ---
Test Reason : Blood Pressure : / mmHG Vent. Rate : 106 BPM Atrial Rate : 106 BPM P-R Int : 134 ms QRS Dur : 092 ms QT Int : 348 ms P-R-T Axes : 064 067 064 degrees QTc Int : 462 ms Sinus tachycardia Possible Left atrial enlargement Borderline ECG When compared with ECG of 17-JUL-2022 14:00, Sinus rhythm has replaced Ectopic atrial rhythm QRS axis Shifted left T wave inversion no longer evident in Lateral leads Confirmed by David Arreola ([id number]) on 11/19/2023 10:03:53 AM Referred By: REFERRED SELF Confirmed By:David Arreola
--- NOTE | 2023-11-19 10:56 | Nephrology Consultation ---
Date of Consultation November 19, 2023 Assessment & Plan (1) Acute hyponatremia: Patient with acute hyponatremia likely due to hypovolemia. Admission sodium was 120. Serum osmolality was 255. Urine osmolality 177 and urine sodium of 18. Sodium is improved to 127 a correction of 7 points in less than 24 hours. Patient is receiving D5. Will stop D5 at this point and wait for the next sodium. Continue monitoring sodium every 6 hourly. If sodium is above 127, resume D5. If repeat sodium is 127 or less no need for D5. (2) Hypertension: Blood pressure is now controlled. Avoid use of hydrochlorothiazide if blood pressure goes up History of Present Illness Reason for Consultation: Hyponatremia Requesting Physician: Dr. Walls Attending Physician: Bk Gibson MD History of Present Illness This is a 58-year-old female being seen for hyponatremia. Past medical history significant for hypertension, hyperlipidemia, TIA, COPD/ILD/lung nodules and mood disorders. He was admitted with tingling and numbness and mild weakness on the left side. She has been worked up for TIA and MRI of the head was negative. Patient also had very high blood pressure on admission with systolic blood pressure in the 200s. She was found to have hyponatremia with sodium of 120. Sodium was improved to 127. She is again receiving D5. Main complaint today is weakness. No shortness of breath or leg swelling. No diarrhea or vomiting. Serum osmolality was 255. Urine osmolality was 177 and urine sodium of 18. Allergies Allergy/AdvReac Type Severity Reaction Status Date / Time amoxicillin Allergy Severe ANAPHYLAXIS Verified 07/17/22 15:04 fexofenadine Allergy Severe ANAPHYLAXIS Verified 07/17/22 15:04 Penicillins Allergy Severe ANAPHYLAXIS Verified 07/17/22 15:04 fluoxetine Allergy Unknown PT "CAN'T Verified 07/17/22 15:04 REMEMBER" Home Medications Medication Instructions Recorded Confirmed Type albuterol sulfate 90 mcg/actuation 2 puff inhalation Q4 PRN Shortness 07/17/22 11/19/23 History aerosol inhaler Of Breath Or Wheezing ipratropium 0.5 mg-albuterol 3 mg 3 ml inhalation Q4 PRN 07/17/22 11/19/23 History (2.5 mg base)/3 mL nebulization wheezing/dyspnea soln lisinopril 10 mg tablet 10 mg PO DAILY #30 tabs 07/17/22 11/19/23 Rx Aspir-81 81 mg PO Q2D 11/19/23 11/19/23 History doxepin 25 mg capsule 25 mg PO DIRECTED 11/19/23 11/19/23 History Patient History Medical History Hypertension Alcohol abuse Social History Smoking Status: Current every day smoker Tobacco Type: Cigarettes Hx Alcohol Use: Yes Alcohol type: beer Hx Substance Use: No Preferred Language: Setswana Communication Ability: Effective Director Machine Required: No Beliefs That Will Affect Care: None Current Living Situation: Spouse and Family Feels Safe at Home: Yes Safety Concerns: Feels Safe At This Time Assistive Devices: None Review of Systems 2 Review of Systems: All other systems were reviewed and negative except as noted in HPI Physical Exam 2 Physical Exam: General exam: Appears comfortable, no acute distress HEENT: Pupils are equal and reactive to light Neck: No JVD, neck is supple trachea is midline Respiratory system: Clear breath sounds bilaterally. Gastrointestinal: Abdomen is soft, non distended, non tender, bowel sounds are present CVS: Regular rate and rhythm. No murmurs, rubs or gallops Musculoskeletal: No joint or muscle tenderness Extremities: Non tender, no edema, peripheral pulses are present Neuro: Oriented, no tremors, no focal neurological deficits Skin: No rashes Results & Data Vital Signs (Past 12 Hours) Vital Signs Temp Pulse Pulse Resp BP Pulse Ox O2 Del Method 11/19/23 07:15 75 11/19/23 03:37 36.5 C 89 14 106/69 97 Room Air 11/19/23 02:26 86 18 143/73 H 96 Room Air 11/19/23 02:00 90 18 143/73 H 96 Room Air 11/19/23 00:53 93 H 18 155/76 H 97 Room Air 11/19/23 00:00 102 H 18 172/88 H 97 Room Air Laboratory Results 11/19/23 04:19 11/18/23 11/19/23 22:35 04:19 WBC 11.13 H 7.38 RBC 3.83 L 3.72 L MCV 90.3 89.0 MCH 32.1 32.3 MCHC 35.5 36.3 H RDW Std Deviation 44.1 43.9 RDW Coeff of Ever 13.4 13.3 Plt Count 265 246 MPV 8.3 L 8.2 L Albumin 4.3 (2) Hypertension Hypertension type: unspecified Qualified Code(s): I10 - Essential (primary) hypertension
[2023-11-19 12:27] LABS: BUN Creatinine Ratio 12.5 (10-20); Creatinine Clr Calc Pharmacy 121.6 ml/min; Est GFR (African American) 119.1 ml/min; Est GFR (Non-African American) 102.8 ml/min; Potassium 4.3 mmol/L (3.5-5.1)
[2023-11-19] MEDS: DEXTROSE 5% 1,000 ML IV SCH ×2 (13:01→20:24)
[2023-11-19] MEDS: GABAPENTIN 600 MG TAB PO SCH ×2 (13:05→20:26)
--- NOTE | 2023-11-19 14:47 | Communication Note ---
Date of Service: November 19, 2023 Patient seen and examined at bedside. She is lying on the bed comfortably; she reports that dizziness has resolved. Physical examination: Constitutional: WD/WN, vitals as above, NAD, sitting up in bed, pleasant, conversing easily Respiratory: normal respiratory effort, lungs clear to auscultation, no wheeze, rales, rhonchi. Normal insp/exp effort, no accessory muscle use Cardiovascular: RRR, no murmur, no edema Vessels: no JVD or carotid bruit Chest: normal inspection of chest Abdomen: normal bowel sounds, soft, nontender, no hepatosplenomegaly Musculoskeletal: no cyanosis or clubbing, extremities motor strength 5/5 Skin: no rashes, warm and dry normal turgor Neurologic: PERRL, EOMI, accommodation nl, no face palsy, no dysarthria CN's II- XI intact bilaterally and moves all extremities Psychiatric: A+Ox3, euthymic affect Assessment/plan Hyponatremia: Presented with sodium of 120 mmol/L Urine osmolarity on the lower side Patient reports drinking excessive fluids including beer. Sodium increased up to 128 in 48 hours. Started on D5 at 125 cc/h. Repeat BMP every 6 hours Alcohol use disorder; On alcohol withdrawal protocol with gabapentin. Continue other home meds.
[2023-11-19 18:43] LABS: BUN Creatinine Ratio 12.2 (10-20); Calcium 8.9 mg/dl (8.6-10.3); Est GFR (African American) 103.5 ml/min; Est GFR (Non-African American) 89.3 ml/min; Potassium 4.3 mmol/L (3.5-5.1)
[2023-11-19] MEDS ORDERED: ZOLPIDEM TARTRATE 5 MG TAB PO PRN (20:52)
[2023-11-19] MEDS ORDERED: DOXEPIN HCL 25 MG CAPSULE PO SCH (21:00)
[2023-11-20 01:31] LABS: BUN Creatinine Ratio 14.9 (10-20); Calcium 8.9 mg/dl (8.6-10.3); Est GFR (African American) 103.5 ml/min; Est GFR (Non-African American) 89.3 ml/min; Potassium 4.4 mmol/L (3.5-5.1)
[2023-11-20] MEDS: GABAPENTIN 600 MG TAB PO SCH ×2 (02:46→12:36)
[2023-11-20] MEDS: DEXTROSE 5% 1,000 ML IV SCH (04:27)
[2023-11-20] MEDS: ASPIRIN 81 MG ECTAB PO SCH (08:18)
[2023-11-20] MEDS: ENOXAPARIN INJ 40 MG/0.4 ML SYR SQ SCH (08:19)
[2023-11-20] MEDS: FOLIC ACID 1 MG TAB PO SCH (08:19)
[2023-11-20] MEDS: ATORVASTATIN 40 MG TAB PO SCH (08:19)
[2023-11-20] MEDS: MULTIVITAMIN TAB PO SCH (08:20)
[2023-11-20 08:23] LABS: Calcium 9.4 mg/dl (8.6-10.3); Creatinine Clr Calc Pharmacy 119.5 ml/min; Est GFR (African American) 118.4 ml/min; Est GFR (Non-African American) 102.2 ml/min
[2023-11-20] MEDS ORDERED: THIAMINE HCL 100 MG TAB PO SCH (09:00)
[2023-11-20] MEDS ORDERED: CLOPIDOGREL BISULFATE 75 MG TAB PO SCH (09:00)
--- NOTE | 2023-11-20 11:24 | Nephrology Progress Note ---
Date of Service November 20, 2023 Assessment & Plan (1) Acute hyponatremia: Plan: Patient with hyponatremia likely due to polydipsia. Admission sodium was 120. Serum osmolality was 255. Urine osmolality 177 and urine sodium of 18. Sodium initially improved to 127 a correction of 7 points in less than 24 hours. she has been receiving D5. sNa this AM 129; has been in this range as OP. pt asx and asking for hospital d/c. NEPHRO D/C RECOMMenDATIONS -fluid limit of 2 L / 64 oz daily -protein shakes do not count toward fluid limit but EtOH does -bmp at pcp f/u -Hospital d/c appt in 2 wks w/ Dr Hernandez or myself w/ bmp, urine and serum osms, rd urine sodium to be ordered by neph RN; pt to bring home bp monitor if she has one to appt w/ nephro >she has been drinking more EtOH to deal w/ grief over neice's sudden > she will work w/ PCP to get therapist Care coordinated w/ Dr Underwood (2) Hypertension: Plan: BP elevated this am again but had been controlled. Avoid use of hydrochlorothiazide if blood pressure goes up Admission and Anticipated Discharge Date Admission Date: November 19, 2023 Subjective no sob, no confusion, no further limb tingling, denies balance concerns or N/v Review of Systems 2 Review of Systems: All systems reviewed & are unremarkable except as noted in Subjective Physical Exam 2 Constitutional: well developed (sitting up in chair on RA) and well nourished Eyes: EOM intact bilaterally ENMT: Ears: no external ear abnormality Nose: no external nose abnormality Mouth: + dry oral mucous membranes Neck: no nuchal rigidity Respiratory: normal respiratory effort Auscultation: + diminished lung sounds Gastrointestinal (Abdomen): Inspection/Auscultation: normal bowel sounds P ercussion/Palpation: abdomen soft; abdomen nontender Musculoskeletal: Extremities: strength 5/5 throughout Skin: no rashes, warm and dry Neurologic: kilpatrick, fluent speech, no tremor Results & Data Vital Signs (Past 12 Hours) Vital Signs Temp Pulse Pulse Resp BP Pulse Ox O2 Del Method 11/20/23 07:46 36.9 C 74 18 170/88 H 94 Room Air 11/20/23 07:39 61 11/20/23 04:11 36.3 C L 78 18 113/68 93 Room Air Laboratory Results 11/19/23 04:19 11/20/23 07:10 (2) Hypertension Hypertension type: unspecified Qualified Code(s): I10 - Essential (primary) hypertension
--- NOTE | 2023-11-20 11:55 | Neurology Consultation ---
Date of Consultation November 20, 2023 Assessment & Plan (1) TIA (transient ischemic attack): Possible TIA as symptoms of LUE paresthesia resolved Stroke imaging unremarkable this admission Recommend continue aspirin Consider DAPT with additional clopidogrel May benefit from statin therapy- defer to primary/GI for liver function status Echocardiogram as part of complete stroke workup Continue frequent neurological assessments Obtain stat CT brain without contrast for any acute neurological decline Continue to monitor/control blood pressure & blood glucose Metabolic workup should include hgbA1c, fasting lipids, homocysteine, TSH, D Dimer Ok from neurology perspective for VTE prophylaxis PT/OT/SLT to eval and treat Follow up outpatient with adult neurology Telehealth Consultation Telehealth Information Telehealth Information: I performed this visit using a real-time telehealth connection between my location and the patients location ([facility]). After connecting through interactive tele-video, patient was identified by name and date of and/or wristband check.Patient (or authorized healthcare sales promotion representative) was informed that this was a telemedicine visit and it was being conducted confidentially over secure lines. My office door was closed and no one else was present in the room with me.Patient (or authorized healthcare sales promotion representative) provided consent to proceed with the visit, expressed an understanding of privacy and security of the telemedicine visit, and gave permission to have a hospital sales promotion representative in the room in order to assist with the visit and to conduct portions of the visit, as needed. I informed the patient (or authorized healthcare sales promotion representative) that I reviewed their record and presented the opportunity for them to ask any questions regarding the visit today. The patient agreed to participate. History of Present Illness Reason for Consultation: Left arm paresthesia Requesting Physician: Dr. Underwood Attending Physician: Suri Underwood MD History of Present Illness 58yo female presents with reported headache, lightheadedness s well as chest pain/SOB and reported Left arm/left hand numbness. She has a significant history of stroke risk including HTN hyperlipidemia, TIA, COPD, GERD, chronic daily tobacco and ETOH usage, She was found to be hyponatremic and has undergone electrolyte management thus far during hospitalization, nephrology consultation has been placed. She reports that LUE paresthesia has resolved. She denies other neurological complaint at this time. Neurological examination nonlateralizing no focal in terms of motor strength and coordination. She has undergone CT brain without contrast upon arrival depicting no evidence of intracranial hemorrhage. CTA head and neck performed/personally reviewed depicting no overt evidence of LVO or significant/flow limiting stenosis. MRI brain has been performed as well fortunately, per my personal review depicting no evidence of acute ischemics stroke. She arrived to ER with vastly elevated systolic BP>200, at this time BP controlled At this time patient able to answer all questions and follow commands without difficulty. Appears in no distress or discomfort at this time. No reported cephalgia or cervicalgia Denies chest pain/palpitations or shortness of breath No reported changes in vision hearing dizziness syncope seizure like activity or paresthesia Denies recent fevers chills nausea vomiting changes in bowels or bladder Denies recent medication changes, recent illness or sick contacts, no reported recent travel Allergies Allergy/AdvReac Type Severity Reaction Status Date / Time amoxicillin Allergy Severe ANAPHYLAXIS Verified 07/17/22 15:04 fexofenadine Allergy Severe ANAPHYLAXIS Verified 07/17/22 15:04 Penicillins Allergy Severe ANAPHYLAXIS Verified 07/17/22 15:04 fluoxetine Allergy Unknown PT "CAN'T Verified 07/17/22 15:04 REMEMBER" Home Medications Medication Instructions Recorded Confirmed Type albuterol sulfate 90 mcg/actuation 2 puff inhalation Q4 PRN Shortness 07/17/22 11/19/23 History aerosol inhaler Of Breath Or Wheezing ipratropium 0.5 mg-albuterol 3 mg 3 ml inhalation Q4 PRN 07/17/22 11/19/23 History (2.5 mg base)/3 mL nebulization wheezing/dyspnea soln lisinopril 10 mg tablet 10 mg PO DAILY #30 tabs 07/17/22 11/19/23 Rx Aspir-81 81 mg PO Q2D 11/19/23 11/19/23 History doxepin 25 mg capsule 25 mg PO DIRECTED 11/19/23 11/19/23 History Patient History Medical History Hypertension Alcohol abuse Social History Smoking Status: Current every day smoker Tobacco Type: Cigarettes Hx Alcohol Use: Yes Alcohol type: beer Hx Substance Use: No Preferred Language: Luxembourgish Communication Ability: Effective Ladle Repairman Required: No Beliefs That Will Affect Care: None Current Living Situation: Spouse and Family Feels Safe at Home: Yes Safety Concerns: Feels Safe At This Time Assistive Devices: None Physical Exam Neurological Examination: Mental Status: Awake and alert. Oriented to person, place, and time. Fluency naming repetition and comprehension appear grossly intact. Affect remains appropriate. CN testing: I: Denies changes in ability to smell II:Reports no changes in visual acuity III/IV/: No evidence of gaze preference, hippus, nystagmus or roving eye movements V: Facial sensation reportedly grossly intact to light touch bilaterally VII: Facial movements appear without evidence of asymmetry VIII: Hearing appears grossly intact to loud voice bilaterally IX/X: Palate appears to elevate symmetrically XI: Shoulder shrug appears symmetric/ grossly intact bilaterally XII: Tongue protrudes midline without evidence of biting Motor exam: Strength appears grossly intact/symmetric in all extremities Sensory: Sensation is reportedly grossly intact throughout Coordination: Finger to nose and heel to zapata were intact. No apparent evidence of dysmetria or dysdiadochokinesia Reflexes: Deferred Gait: Deferred Results & Data Vital Signs (Past 12 Hours) Vital Signs Temp Pulse Pulse Resp BP Pulse Ox O2 Del Method 11/20/23 11:34 36.6 C 69 18 141/84 H 97 Room Air 11/20/23 07:46 36.9 C 74 18 170/88 H 94 Room Air 11/20/23 07:39 61 11/20/23 04:11 36.3 C L 78 18 113/68 93 Room Air Laboratory Results Abnormal lab results 11/19/23 11/19/23 11/20/23 Range/Units 12:00 17:55 00:59 Sodium 128 L 128 L 128 L (136-145) mmol/L Chloride 97 L 96 L 97 L (98-107) mmol/L Creatinine 0.56 L (0.6-1.2) mg/dl Glucose 108 H 121 H 118 H (70-99(Fasting)) mg/dl 11/20/23 Range/Units 07:10 Sodium 129 L (136-145) mmol/L Chloride (98-107) mmol/L Creatinine 0.57 L (0.6-1.2) mg/dl Glucose 112 H (70-99(Fasting)) mg/dl Diagnostic Findings MR brain wo con CLINICAL HISTORY: tia TECHNIQUE: Multiplanar and multisequence MR images of the brain were obtained without intravenous contrast. Comparison: Comparison is made to MRI brain 04/14/[address] head 11/18/2023 FINDINGS: Exam is limited by patient motion. No abnormal restricted diffusion is identified. Foci of T2 and FLAIR hyperintensity are noted in the paraventricular areas consistent with chronic sm all vessel ischemic disease. The ventricular system is normal in appearance. No mass is seen. There is no mass effect or midline shift. There is no evidence of acute intraparenchymal hemorrhage. No extra axial fluid collections are seen. The corpus callosum, pituitary gland, and cerebellar tonsils appear grossly unremarkable. Flow voids of the major intracranial arterial vessels are identified. The imaged portions of the paranasal sinuses, mastoid air cells, and orbits are unremarkable. IMPRESSION: Chronic volume loss and age related white matter changes without evidence of acute abnormality. Exam(s): CTA NECK With Contrast EXAM: CT Angiography Neck With Intravenous Contrast CLINICAL HISTORY: neuro deficit, acute stroke suspected. TECHNIQUE: Routine carotid CT angiography protocol was performed with intravenous contrast. NASCET criteria using the distal ICAs for comparison were used for evaluation of stenoses. CTDI is 47.37 mGy and DLP is 23.69 mGy-cm. Automated exposure control was utilized for the study. A dose lowering technique was utilized adhering to the principles of ALARA. MIP reconstructed images were created and reviewed. COMPARISON: None. FINDINGS: VASCULATURE: Right common carotid artery: Eccentric atheromatous changes involving the anterolateral aspect of the mid to distal right common carotid artery without significant narrowing. No dissection. Right internal carotid artery: Atherosclerotic calcification of the proximal right internal carotid artery at the carotid bifurcation without significant narrowing. The mid to distal internal carotid artery is patent. No dissection. Right external carotid artery: Unremarkable. No occlusion. Right vertebral artery: Mild to moderate ostial stenosis. No occlusion or significant stenosis. No dissection. Left common carotid artery: Unremarkable. No occlusion or significant stenosis. No dissection. Left internal carotid artery: Mild intimal hyperplasia involving the mid to distal left internal carotid artery without significant narrowing, dissection or occlusion. Atherosclerotic calcification of the proximal left internal carotid artery without significant narrowing by NASCET criteria. The mid to distal left internal carotid artery is patent. Left external carotid artery: Unremarkable. No occlusion. Left vertebral artery: Mild to moderate ostial stenosis. No occlusion or significant stenosis. No dissection. Other vasculature: Atherosclerotic changes involving the proximal great vessels without occlusion or obvious critical stenosis. Aorta: The aortic arch is predominantly excluded from the field-of- view. NECK: Bones/joints: Unremarkable. No acute fracture. Soft tissues: Unremarkable. Lung apices: Emphysematous changes noted in the lung apices. No focal consolidation. CAROTID STENOSIS REFERENCE USING NASCET CRITERIA: % ICA stenosis = (1 - narrowest ICA diameter/diameter of distal cervical ICA) x 100. Mild - <50% stenosis. Moderate - 50-69% stenosis. Severe - 70-94% stenosis. Near occlusion - 95-99% stenosis. Occluded - 100% stenosis. IMPRESSION: 1. Atherosclerotic changes involving the common and internal carotid arteries bilaterally without significant stenosis or occlusion. 2. Mild to moderate ostial stenosis of both vertebral arteries. The vertebral arteries are otherwise bilaterally. EXAM: CT Angiography Head With Intravenous Contrast CLINICAL HISTORY: neuro deficit, acute stroke suspected. TECHNIQUE: Axial computed tomographic angiography images of the head with intravenous contrast. CTDI is 37.51 mGy and DLP is 546.36 mGy-cm. Automated exposure control was utilized for the study. A dose lowering technique was utilized adhering to the principles of ALARA. MIP reconstructed images were created and reviewed. COMPARISON: No relevant prior studies available. FINDINGS: Right internal carotid artery: No acute findings. Intracranial segment is patent with no significant stenosis. No aneurysm. Right anterior cerebral artery: Unremarkable. No occlusion or significant stenosis. No aneurysm. Right middle cerebral artery: Unremarkable. No occlusion or significant stenosis. No aneurysm. Right posterior cerebral artery: Unremarkable. No occlusion or significant stenosis. No aneurysm. Right vertebral artery: The distal right vertebral artery is small in caliber but demonstrates no focal narrowing or occlusion. Left internal carotid artery: No acute findings. Intracranial segment is patent with no significant stenosis. No aneurysm. Left anterior cerebral artery: Unremarkable. No occlusion or significant stenosis. No aneurysm. Left middle cerebral artery: Unremarkable. No occlusion or significant stenosis. No aneurysm. Left posterior cerebral artery: Unremarkable. No occlusion or significant stenosis. No aneurysm. Left vertebral artery: The distal left vertebral artery is dominant and is widely patent. Basilar artery: Unremarkable. No occlusion or significant stenosis. No aneurysm. Brain: No abnormal parenchymal enhancement. IMPRESSION: Negative intracranial CTA examination. Medications Administered Home Medications Medication Instructions Recorded Confirmed Last Taken albuterol sulfate 90 mcg/actuation 2 puff inhalation Q4 PRN Shortness 07/17/22 11/19/23 Unknown aerosol inhaler Of Breath Or Wheezing ipratropium 0.5 mg-albuterol 3 mg 3 ml inhalation Q4 PRN 07/17/22 11/19/23 Unknown (2.5 mg base)/3 mL nebulization wheezing/dyspnea soln lisinopril 10 mg tablet 10 mg PO DAILY #30 tabs 07/17/22 11/19/23 11/18/23 Aspir-81 81 mg PO Q2D 11/19/23 11/19/23 Unknown doxepin 25 mg capsule 25 mg PO DIRECTED 11/19/23 11/19/23 Unknown Active Medications Generic Name Dose Route Start Last Admin Trade Name Noelq PRN Reason Stop Dose Admin Aspirin 81 mg 11/19/23 09:00 11/20/23 08:18 Aspirin 81 Mg Ectab PO 12/19/23 08:59 81 mg QAM BRYNN Administration Atorvastatin Calcium 40 mg 11/19/23 09:00 11/20/23 08:19 Atorvastatin 40 Mg Tab PO 12/19/23 08:59 40 mg QAM BRYNN Administration Doxepin HCl 25 mg 11/19/23 21:00 11/19/23 20:26 Doxepin Hcl 25 Mg Capsule PO 12/19/23 20:59 25 mg HS BRYNN Administration Enoxaparin Sodium 40 mg 11/19/23 09:00 11/20/23 08:19 Enoxaparin Inj 40 Mg/0.4 Ml Syr SQ 12/19/23 08:59 40 mg QAM BRYNN Administration Folic Acid 1 mg 11/19/23 09:00 11/20/23 08:19 Folic Acid 1 Mg Tab PO 12/19/23 08:59 1 mg QAM BRYNN Administration Gabapentin 600 mg 11/20/23 03:30 11/20/23 02:46 Gabapentin 600 Mg Tab PO 11/20/23 19:31 600 mg Q8H BRYNN Administration Multivitamins 1 tab 11/19/23 09:00 11/20/23 08:20 Multivitamin Tab PO 12/19/23 08:59 1 tab QAM BRYNN Administration Thiamine HCl 100 mg 11/20/23 09:00 11/20/23 08:20 Thiamine Hcl 100 Mg Tab PO 12/20/23 08:59 100 mg QAM BRYNN Administration
--- NOTE | 2023-11-20 12:45 | Hospitalist Progress Note ---
Date of Service November 20, 2023 Assessment & Plan (1) TIA (transient ischemic attack): Plan: TIA/stroke has been ruled out Symptoms of dizziness was likely secondary to acute hyponatremia No more symptoms following correction of the sodium Imaging studies are unremarkable for any stroke She has had physical therapy and did very well Ambulating without any difficulties She wants to go home and will be discharged home this afternoon Hypertension, elevated secondary to above Alcohol withdrawal contributory No symptoms and no signs of alcohol withdrawal Will cut down alcohol following discharge Acute on chronic hyponatremia Patient hyponatremic in the 120s since last year on review on outpatient blood work EtOH abuse, water intake contributory Sodium level has been around 129 for the last few days Appreciate nephrology input and recommendation-fluid limit 2 L/day, protein shakes as an outpatient, follow-up with PCP in 1 week and nephrology in 2 weeks Strongly advised to quit drinking Carotid artery disease/vertebral artery disease on neck imaging Not having any acute neurological symptoms hyperlipidemia, not on statin Rx COPD/ILD as per records, chronic wheezing symptoms as per patient Lung nodules, stable size as of recent outpatient CT chest last month hx GERD chronic lymphocytosis, 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 Lovenox subcu Full code Text document was generated using [employer] voice recognition software. It may contain grammatical or spelling errors. Kindly contact undersigned for clarification of any documentation item in question. Admission and Anticipated Discharge Date Admission Date: November 19, 2023 Subjective 11/20/2023 The patient was seen and examined in medical telemetry unit She has been feeling much better and denies any symptoms She does not have any more dizziness, never had any weakness involving any sites or any visual symptoms Her tingling in the left hand is gone She has been ambulating without any difficulties and wants to go home Review of Systems Review of Systems: All systems reviewed and are unremarkable except as noted below Neurologic: No neurological symptoms Physical Exam Physical Exam: Sitting on a chair without any acute distress Constitutional: well developed, well nourished and + obese; not ill appearing Eyes: PERRL, conjunctivae normal, anicteric sclerae ENMT: external ear and nose normal, oropharynx normal Respiratory: no respiratory distress Auscultation: lungs clear to auscultation bilaterally Cardiovascular: Rate/Rhythm: regular rate and regular rhythm; not tachycardic Heart Sounds: normal S1 and normal S2; no murmur Extremities: no edema Gastrointestinal (Abdomen): Inspection/Auscultation: normal bowel sounds; abdomen not distended Percussion/Palpation: abdomen soft; abdomen nontender Musculoskeletal: No acute arthritis involving any of the joint Neurologic: normal touch/pain/proprioception and moves all extremities; no focal motor deficits Psychiatric: A+Ox3, euthymic affect Lymphatic: no cervical or axillary lymphadenopathy Results & Data Results & Data Vital Signs (Past 12 Hours) Vital Signs Temp Pulse Pulse Resp BP Pulse Ox O2 Del Method 11/20/23 11:34 36.6 C 69 18 141/84 H 97 Room Air 11/20/23 07:46 36.9 C 74 18 170/88 H 94 Room Air 11/20/23 07:39 61 11/20/23 04:11 36.3 C L 78 18 113/68 93 Room Air Laboratory Results [facility] 11/19/23 11/20/23 11/20/23 17:55 00:59 07:10 Sodium 128 L 128 L 129 L Potassium 4.3 4.4 4.0 Chloride 96 L 97 L 98 Carbon Dioxide 24 25 26 BUN 9 11 8 Creatinine 0.74 0.74 0.57 L Glucose 121 H 118 H 112 H Calcium 8.9 8.9 9.4 Medications Administered Current Inpatient Medications Aspirin (Aspirin 81 Mg Ectab) 81 mg PO [facility] Stop: 12/19/23 08:59 Last Admin: 11/20/23 08:18 Dose: 81 mg Atorvastatin Calcium (Atorvastatin 40 Mg Tab) 40 mg PO [facility] Stop: 12/19/23 08:59 Last Admin: 11/20/23 08:19 Dose: 40 mg Diphenhydramine HCl (Diphenhydramine Capsule 25 Mg Cap) 50 mg PO HS PRN PRN Reason: sleep Stop: 12/19/23 01:37 Doxepin HCl (Doxepin Hcl 25 Mg Capsule) 25 mg PO [facility] Stop: 12/19/23 20:59 Last Admin: 11/19/23 20:26 Dose: 25 mg Enoxaparin Sodium (Enoxaparin Inj 40 Mg/0.4 Ml Syr) [facility] Stop: 12/19/23 08:59 Last Admin: 11/20/23 08:19 Dose: 40 mg Folic Acid (Folic Acid 1 Mg Tab) 1 mg PO QAM [facility] Stop: 12/19/23 08:59 Last Admin: 11/20/23 08:19 Dose: 1 mg Gabapentin (Gabapentin 600 Mg Tab) 600 mg PO Q24H [facility] Stop: 11/22/23 19:31 Gabapentin (Gabapentin 600 Mg Tab) 600 mg PO Q12H [facility] Stop: 11/21/23 19:31 Gabapentin (Gabapentin 600 Mg Tab) 600 mg PO Q8H [facility] Stop: 11/20/23 19:31 Last Admin: 11/20/23 12:36 Dose: 600 mg Lorazepam 1 mg/ Syringe 1 mls @ 2 mls/min IV UD PRN; Protocol PRN Reason: EtOH Withdrawal AWSS Score 6,7 Stop: 12/19/23 01:36 Lorazepam 2 mg/ Syringe 2 mls @ 2 mls/min IV UD PRN; Protocol PRN Reason: EtOH Withdrawal AWSS Score 8,9 Stop: 12/19/23 01:36 Lorazepam 3 mg/ Syringe 3 mls @ 2 mls/min IV ONCE PRN; Protocol PRN Reason: EtOH Withdrawal AWSS Score 10+ Promethazine HCl 12.5 mg/ (Sodium Chloride) 50.5 mls @ 202 mls/hr IV Q6H PRN PRN Reason: Nausea And Vomiting Stop: 12/19/23 01:58 Multivitamins (Multivitamin Tab) 1 tab [facility] Stop: 12/19/23 08:59 Last Admin: 11/20/23 08:20 Dose: 1 tab Oxycodone HCl (Oxycodone Hcl Ir 5 Mg Tab (Immediate Release)) 5 mg PO Q4H PRN PRN Reason: Pain Stop: 12/03/23 01:58 Thiamine HCl (Thiamine Hcl 100 Mg Tab) [facility] Stop: 12/20/23 08:59 Last Admin: 11/20/23 08:20 Dose: 100 mg Zolpidem Tartrate (Zolpidem Tartrate 5 Mg Tab) 5 mg PO HS PRN PRN Reason: Sleep Stop: 12/19/23 20:51
[2023-11-21] MEDS ORDERED: GABAPENTIN 600 MG TAB PO SCH (07:30)
--- NOTE | 2023-11-22 09:04 | Discharge Summary ---
Date of Service November 20, 2023 Admission HPI Per Admitting Provider History obtained from patient and records. Medical history significant for hypertension, hyperlipidemia, TIA, COPD/ILD/lung nodules as per records as per records, GERD, chronic lymphocytosis as per records, mood disorder, ongoing tobacco/alcohol abuse. Last confinement 2013 for TIA and alcoholic intoxication. Patient presented with transient numbness/tingling sensation/mild weakness on the left side. Brain MRI negative for stroke. Patient discharged on aspirin. Statin not started due to alcoholic hepatitis as per documentation. No outpatient neurology follow-up. Patient woke up not feeling well yesterday. Later experienced generalized headache symptoms associated with lightheadedness and sleepy left upper extremity sensation. Patient would not call it weakness or numbness. Patient takes home aspirin every other day. No chest pain or unusual shortness of breath. No neck pain. Patient admits to consumption of more than 2 L of water daily for some time now. Last EtOH intake was last night. SBP 200s upon arrival at the ER. Abnormal left upper extremity sensation currently improving as per patient. IV Ativan administered at the ER for possible alcohol withdrawal. 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 Admission Exam Per Admitting Provider Physical Exam: GENERAL: Comfortable, tremulous, no respiratory distress SKIN: Normal color, warm HEENT: Cass palpebral conjunctivae, no ptosis, dry buccal mucosa NECK : Supple, no tenderness CHEST : Decreased breath sounds, occasional expiratory wheezes, no tenderness HEART : RRR, no obvious murmurs ABDOMEN: Some distention, nontender EXTREMITIES : No LE swelling/tenderness, no other conspicuous deformities noted NEUROLOGIC : Coherent, no facial asymmetry, MMTS BUE/BLE 5/5, negative pronator drift, no other gross focality Principal Diagnosis Acute on chronic hyponatremia, dizziness likely secondary to hyponatremia, hypertension, COPD/ILD Discharge Exam Sitting on a chair without any acute distress Constitutional well developed, well nourished and + obese; not ill appearing Eyes PERRL, conjunctivae normal, anicteric sclerae ENMT external ear and nose normal, oropharynx normal Respiratory no respiratory distress Auscultation: lungs clear to auscultation bilaterally Cardiovascular Rate/Rhythm: regular rate and regular rhythm; not tachycardic Heart Sounds: normal S1 and normal S2; no murmur Extremities: no edema Gastrointestinal (Abdomen) Inspection/Auscultation: normal bowel sounds; abdomen not distended Percussion/Palpation: abdomen soft; abdomen nontender Neurologic normal touch/pain/proprioception and moves all extremities; no focal motor deficits Psychiatric A+Ox3, euthymic affect Lymphatic no cervical or axillary lymphadenopathy Discharge Data Allergies Allergy/AdvReac Type Severity Reaction Status Date / Time amoxicillin Allergy Severe ANAPHYLAXIS Verified 07/17/22 15:04 fexofenadine Allergy Severe ANAPHYLAXIS Verified 07/17/22 15:04 Penicillins Allergy Severe ANAPHYLAXIS Verified 07/17/22 15:04 fluoxetine Allergy Unknown PT "CAN'T Verified 07/17/22 15:04 REMEMBER" Consultations 11/19/23 00:18 ED Decision to Admit Stat 11/19/23 02:24 Consult Nephrology Routine Ordered Studies 11/18/23 22:30 CT angio chest PE protocol Stat 11/18/23 22:31 CT angio head w con Stat CT angio neck with con Stat CT head/brain wo con Stat 11/19/23 02:24 MR brain wo con Routine Hospital Course (1) TIA (transient ischemic attack): TIA/stroke has been ruled out Symptoms of dizziness was likely secondary to acute hyponatremia No more symptoms following correction of the sodium Imaging studies are unremarkable for any stroke She has had physical therapy and did very well Ambulating without any difficulties She wants to go home and will be discharged home this afternoon Hypertension, elevated secondary to above Alcohol withdrawal contributory No symptoms and no signs of alcohol withdrawal Will cut down alcohol following discharge Acute on chronic hyponatremia Patient hyponatremic in the 120s since last year on review on outpatient blood work EtOH abuse, water intake contributory Sodium level has been around 129 for the last few days Appreciate nephrology input and recommendation-fluid limit 2 L/day, protein shakes as an outpatient, follow-up with PCP in 1 week and nephrology in 2 weeks Strongly advised to quit drinking Carotid artery disease/vertebral artery disease on neck imaging Not having any acute neurological symptoms hyperlipidemia, not on statin Rx COPD/ILD as per records, chronic wheezing symptoms as per patient Lung nodules, stable size as of recent outpatient CT chest last month hx GERD chronic lymphocytosis, 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 Lovenox subcu Full code Text document was generated using [employer] voice recognition software. It may contain grammatical or spelling errors. Kindly contact undersigned for clarification of any documentation item in question. Total Time Total Time Spent Total Time Spent (In Minutes): 35 minutes Discharge Plan Discharge Items Patient Disposition: Home - Self-Care Reason For Visit: HYPONATREMIA, TIA Discharge Diagnosis: Acute on chronic hyponatremia, dizziness likely secondary to hyponatremia, hypertension, COPD/ILD Condition on Discharge: Good Activity: Resume your previous activity Non-emergency contact: Primary Care Provider Call non-emergency contact if: you have any medication questions and your symptoms worsen Follow-up/Referrals: Shara Young MD, PhD [Physician] - (The Nephrology office will contact you for a hospital follow up appointment.) Natalia Thorne MD [Physician] - (Date & Time 12/08/2023 1:40 PM Provider Natalia Thorne MD Department Neurology [facility] ) Anupama Huddleston PA-C [Primary Care Provider] - (Date & Time 11/23/2023 9:20 AM Provider Anupama Huddleston PA-C Department [facility] ) Diet: Regular Fluids: 2000ml (8 cups) Diet Comment: Try protein shakes Addtl Attending Provider Instructions: Please take precautions to avoid falls Strongly advised to quit drinking of alcohol Please keep appointments with your healthcare provider and have your sodium level and kidney function checked Take your medications as advised Pending Studies at Discharge: No Stand-Alone Forms: [facility], Smoking Cessation Medications and DC Order Prescriptions: New gabapentin 600 mg Tablet 600 mg PO UD Qty: 4 0RF Rx Instructions: 1 po this evening,1 po bid tomorrow and then 1 po the morning after. thiamine HCl (vitamin B1) 100 mg Tablet 100 mg PO QAM Qty: 30 0RF folic acid 1 mg Tablet 1 mg PO QAM Qty: 30 0RF Continued Aspir-81 81 mg PO Q2D doxepin 25 mg capsule 25 mg PO DIRECTED ipratropium-albuterol 0.5 mg-3 mg(2.5 mg base)/3 mL solution for nebulization 3 ml INHALATION Q4 PRN (Reason: wheezing/dyspnea) albuterol sulfate 90 mcg/actuation HFA aerosol inhaler 2 puff INHALATION Q4 PRN (Reason: Shortness Of Breath Or Wheezing) lisinopril 10 mg tablet 10 mg PO DAILY Qty: 30 1RF Discharge Orders: Discharge Order (Routine); Ordered 11/20/23 Ordered By: Suri Underwood Admission Data Admit Date/Time: 11/19/23 01:33 Attending Provider: Suri Underwood Admit Provider: Boris Walls Primary Care Provider: Anupama Huddleston Other Providers: Natalia Anguiano; Jasson Schwartz; Natalia Thorne; Reynold Orozco; Rell Carrera; Dennis Parker; Akira Banks; Nevin Amaya; Steve Jameson; Deon Rowell; Valerie Stanton; Samson Dang; LenAzalia; Kelle Weiss; Akira Dsouza; Boris Walls; Bk Gibson Other Interventions: Discharge Summary Assessment (RN) Last Done: 11/20/23 13:27
[2023-11-22] MEDS ORDERED: GABAPENTIN 600 MG TAB PO SCH (19:30)
== END 2023-11-20 14:15 | disposition home or self-care (01) | DRG 641 ==
LOC: ED 22:19 → EDINP 11-19 01:33 → SUATTDRO 11-19 01:33 → 2N 11-19 02:23